=== PATIENT | female | born 1960 | race Caucasian/White ===

== ENCOUNTER 2019-10-14 10:00 | Emergency (ER) | payer MEDICARE, OTHER ==
[2019-10-14] MEDS ORDERED: Albuterol/Ipratropium 3.0-0.5 MG/3 ML Neb Soln NEB ONE (10:35)
--- NOTE | 2019-10-14 10:47 | EDM.PDOC ---
ED HPI GENERAL MEDICAL PROBLEM - General Chief Complaint: Respiratory Problem Stated Complaint: DIFFICULTY BREATHING Time Seen by Provider: 10/14/19 10:30 Source of Information: Reports: Patient, Old Records, RN History Limitations: Reports: No Limitations - History of Present Illness INITIAL COMMENTS - FREE TEXT/NARRATIVE: 59 yo female with progressive dyspnea over the past week was referred to the ER today by the clinic for this. Astrid does not believe that she has had a fever. Is a life long smoker. Is not aware of COPD/emphysema diagnosis. Does not have a nebulizer at home. No chest pain. Admits to nursing that she is taking neither her HCTZ or her thyroid medications having quit them on her own. Onset: Gradual Onset Date: 10/07/19 Duration: Week(s): (1), Getting Worse Location: Reports: Chest Quality: Reports: Other (no pain) Severity: Moderate Improves with: Reports: Rest Worsens with: Reports: Movement Context: Reports: Other (see HPI) Associated Symptoms: Reports: Shortness of Breath. 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) (none) denies Pain Score (Numeric/FACES): 0 - Related Data Allergies Allergy/AdvReac Type Severity Reaction Status Date / Time acetaminophen [From Tylenol] Allergy Liver Verified 10/14/19 10:17 Problems Home Meds: Home Meds Multivitamin with Minerals [Antioxidant Vitamin] 1 each PO DAILY 09/12/13 [ History] Vitamin B Complex [B Complex] 1 tab PO DAILY 09/12/13 [History] Levothyroxine 1 tab PO DAILY 08/31/15 [History] hydroCHLOROthiazide [Hydrochlorothiazide] 1 tab PO DAILY 08/31/15 [History] Albuterol [Proventil Neb Soln] 2.5 mg NEB Q4H PRN #60 neb 10/14/19 [Rx] Albuterol/Ipratropium [DuoNeb 3.0-0.5 MG/3 ML] 3 ml NEB Q6H PRN #60 neb [Rx] predniSONE [Prednisone] 20 mg PO BID #10 tablet 10/14/19 [Rx] Past Medical History HEENT History: Reports: Impaired Vision Cardiovascular History: Reports: Hypertension Gastrointestinal History: Reports: Cirrhosis 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: Musculoskeletal History: Reports: Fracture Other Musculoskeletal History: Fx ankle Endocrine/Metabolic History: Reports: Hypothyroidism Hematologic History: Reports: Blood Transfusion(s) - Infectious Disease History Infectious Disease History: Reports: Chicken Pox, Measles, Mumps - Past Surgical History HEENT Surgical History: Reports: Cataract Surgery Social & Family History - Tobacco Use Smoking Status *Q: Current Every Day Smoker Years of Tobacco use: 45 Packs/Tins Daily: 1 Used Tobacco, but Quit: No Second Hand Smoke Exposure: Yes - Caffeine Use Caffeine Use: Reports: Coffee, Soda - Alcohol Use Days Per Week of Alcohol Use: 7 Number of Drinks Per Day: 6 Total Drinks Per Week: 42 - Recreational Drug Use Recreational Drug Use: No ED ROS GENERAL - Review of Systems Review Of Systems: See Below Constitutional: Reports: No Symptoms HEENT: Reports: No Symptoms Respiratory: Reports: Shortness of Breath, Wheezing. Denies: Cough, Sputum, Hemoptysis Cardiovascular: Reports: No Symptoms GI/Abdominal: Reports: No Symptoms : Reports: No Symptoms Musculoskeletal: Reports: No Symptoms Skin: Reports: No Symptoms Neurological: Reports: No Symptoms ED EXAM, GENERAL - Physical Exam Exam: See Below Exam Limited By: No Limitations General Appearance: Alert, WD/WN, No Apparent Distress Eye Exam: Bilateral Eye: Normal Inspection Ears: Normal External Exam, Normal Canal, Hearing Grossly Normal, Normal TMs Ear Exam: Bilateral Ear: Auricle Normal, Canal Normal, TM normal Nose: Normal Inspection, No Blood Throat/Mouth: Normal Inspection, Normal Lips, Normal Oropharynx, Normal Voice, No Airway Compromise Head: Atraumatic, Normocephalic Neck: Normal Inspection Respiratory/Chest: Decreased Breath Sounds, Wheezing, Other (mild tachypnea). No: Lungs Clear, Normal Breath Sounds Cardiovascular: Regular Rate, Rhythm, No Edema GI/Abdominal: Normal Bowel Sounds, Soft, Non-Tender, No Distention Back Exam: Normal Inspection. No: CVA Tenderness (R), CVA Tenderness (L) Extremities: Normal Inspection, Normal Range of Motion, Non-Tender, No Pedal Edema Neurological: Alert, Oriented, CN II-XII Intact, Normal Cognition, No Motor/ Sensory Deficits Psychiatric: Normal Affect, Normal Mood Skin Exam: Warm, Dry, Intact, Normal Color, No Rash Course - Vital Signs Last Recorded V/S: Last Vital Signs Temp 37.0 C 10/14/19 10:29 Pulse 117 H 10/14/19 10:29 Resp 36 H 10/14/19 10:29 BP 175/91 H 10/14/19 10:29 Pulse Ox 91 L 10/14/19 10:29 - Orders/Labs/Meds Orders: Active Orders 24 hr Category Date Time Status RT Aerosol Therapy [RC] ASDIRECTED Care 10/14/19 10:35 Active Labs: Laboratory Tests 10/14/19 10/14/19 Range/Units 10:53 10:53 WBC 13.5 H (4.5-11.0) K/uL RBC 5.44 (3.30-5.50) M/uL Hgb 14.1 D (12.0-15.0) g/dL Hct 45.1 (36.0-48.0) % MCV 83 (80-98) fL MCH 26 L (27-31) pg MCHC 31 L (32-36) % Plt Count 380 (150-400) K/uL Sodium 135 L (140-148) mmol/L Potassium 4.1 (3.6-5.2) mmol/L Chloride 99 L (100-108) mmol/L Carbon Dioxide 26 (21-32) mmol/L Anion Gap 14.1 H (5.0-14.0) mmol/L BUN 5 L (7-18) mg/dL Creatinine 0.8 (0.6-1.0) mg/dL Est Cr Clr Drug Dosing 61.09 mL/min Estimated GFR (MDRD) > 60 (>60) Glucose 134 H (74-106) mg/dL Calcium 9.4 D (8.5-10.1) mg/dL Meds: Medications Discontinued Medications Generic Name Dose Route Start Last Admin Trade Name Freq PRN Reason Stop Dose Admin Albuterol/Ipratropium 3 ml 10/14/19 10:35 10/14/19 10:40 Duoneb 3.0-0.5 Mg/3 Ml NEB 10/14/19 10:36 3 ml ONETIME ONE Administration - Radiology Interpretation Free Text/Narrative:: CXR-minimal changes - Re-Assessments/Exams Free Text/Narrative Re-Assessment/Exam: 10/14/19 11:23 Is moving air a little better after the Duoneb, wants to try going home. Departure - Departure Time of Disposition: 11:35 Disposition: Home, Self-Care 01 Condition: Fair Clinical Impression: Chronic obstructive pulmonary disease with bronchospasm, Tobacco abuse - Discharge Information *PRESCRIPTION DRUG MONITORING PROGRAM REVIEWED*: Not Applicable *COPY OF PRESCRIPTION DRUG MONITORING REPORT IN PATIENT HUSAM: Not Applicable Instructions: Chronic Obstructive Pulmonary Disease Exacerbation, [id number] Referrals: Horacio Bourne MD [Primary Care Provider] - Forms: ED Department Discharge Additional Instructions: No smoking. Take prednisone, Duonebs, and albuterol as directed. Recheck with your provider, Dr. Bourne on Thursday. Call for an appt. Return to the ER if worse. Sepsis Event Note - Evaluation Sepsis Screening Result: No Definite Risk - Focused Exam Vital Signs: Vital Signs Temp Pulse Resp BP Pulse Ox 10/14/19 10:29 37.0 C 117 H 36 H 175/91 H 91 L 10/14/19 10:17 37.0 C 117 H 22 H 175/91 H 91 L Date Exam was Performed: 10/14/19 Time Exam was Performed: 11:22 - My Orders Last 24 Hours: My Active Orders 10/14/19 10:35 RT Aerosol Therapy [RC] ASDIRECTED - Assessment/Plan Last 24 Hours: My Active Orders 10/14/19 10:35 RT Aerosol Therapy [RC] ASDIRECTED
--- NOTE | 2019-10-14 11:22 | CR ---
CHEST: 2 view CLINICAL HISTORY:SOB COMPARISON:2014 FINDINGS: Heart is mildly enlarged. Pulmonary vascularity is normal. There are atherosclerotic changes in the aorta.. There is generalized prominence in interstitial markings which is felt to be chronic. There is some vague patchy density in the right lower lung field. This could represent a mild the right lower lung infiltrate either in the middle lobe or lower lobe. Impression: Chronic interstitial changes Mild cardiomegaly. Mild generalized increase in lung markings in the right lower lung field when compared to prior studies. Minimal pneumonic infiltrate is not excluded
[2019-10-14 11:50] VITALS: BP 165/89; PULSE 109
== END 2019-10-14 11:50 | disposition home or self-care (01) ==
LOC: JP.ED 10:00
DX: J98.01 Acute bronchospasm (principal); J44.9 Chronic obstructive pulmonary disease, unspecified; F17.210 Nicotine dependence, cigarettes, uncomplicated; I10 Essential (primary) hypertension; E03.9 Hypothyroidism, unspecified; Z79.899 Other long term (current) drug therapy
CPT/HCPCS: 36415; 71046; 71046-26; 80048; 85027; 94640; 99284; 99285-25; J7620-GY

== ENCOUNTER 2019-10-18 12:02 | Inpatient (IN) | payer MEDICARE, OTHER ==
--- NOTE | 2019-10-18 13:16 | EDM.PDOC ---
ED HPI GENERAL MEDICAL PROBLEM - General Chief Complaint: Respiratory Problem Stated Complaint: SHORTNESS OF BREATH Time Seen by Provider: 10/18/19 12:20 Source of Information: Reports: Patient History Limitations: Reports: No Limitations - History of Present Illness INITIAL COMMENTS - FREE TEXT/NARRATIVE: pt arrived with a cough, increased sob and a fever that she spiked this am. She was started on zithromax yesterday because she had a mild infiltrate on the chest obtained this weekend. Onset: Today, Other (pt was much more sob today and she ended up at [facility]. ) Duration: Hour(s): Location: Reports: Chest Associated Symptoms: Reports: Cough, Fever/Chills dENIES Pain Score (Numeric/FACES): 0 - Related Data Allergies Allergy/AdvReac Type Severity Reaction Status Date / Time acetaminophen [From Tylenol] Allergy Liver Verified 10/18/19 12:51 Problems Home Meds: Home Meds Multivitamin with Minerals [Antioxidant Vitamin] 1 each PO DAILY 09/12/13 [ History] Vitamin B Complex [B Complex] 1 tab PO DAILY 09/12/13 [History] Levothyroxine 1 tab PO DAILY 08/31/15 [History] hydroCHLOROthiazide [Hydrochlorothiazide] 1 tab PO DAILY 08/31/15 [History] Albuterol [Proventil Neb Soln] 2.5 mg NEB Q4H PRN #60 neb 10/14/19 [Rx] Albuterol/Ipratropium [DuoNeb 3.0-0.5 MG/3 ML] 3 ml NEB Q6H PRN #60 neb [Rx] predniSONE [Prednisone] 20 mg PO BID #10 tablet 10/14/19 [Rx] Azithromycin 1 tab PO DAILY 10/18/19 [History] Past Medical History HEENT History: Reports: Impaired Vision Cardiovascular History: Reports: Hypertension Gastrointestinal History: Reports: Cirrhosis 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: Musculoskeletal History: Reports: Fracture Other Musculoskeletal History: Fx ankle Endocrine/Metabolic History: Reports: Hypothyroidism Hematologic History: Reports: Blood Transfusion(s) - Infectious Disease History Infectious Disease History: Reports: Chicken Pox, Measles, Mumps - Past Surgical History HEENT Surgical History: Reports: Cataract Surgery Social & Family History - Caffeine Use Caffeine Use: Reports: Coffee, Soda ED ROS GENERAL - Review of Systems Review Of Systems: See Below Constitutional: Reports: Fever, Chills, Weakness HEENT: Reports: No Symptoms Respiratory: Reports: Shortness of Breath, Wheezing, Cough Cardiovascular: Reports: No Symptoms, Palpitations Endocrine: Reports: No Symptoms GI/Abdominal: Reports: No Symptoms : Reports: No Symptoms Musculoskeletal: Reports: No Symptoms Skin: Reports: No Symptoms Neurological: Reports: No Symptoms Psychiatric: Reports: Anxiety ED EXAM, GENERAL - Physical Exam Exam: See Below Free Text/Narrative:: pt arrived with a history of increased sob and cough. She did spike a temp this am. Exam Limited By: No Limitations General Appearance: Alert, Anxious, Moderate Distress Ears: Normal TMs Nose: Normal Inspection Throat/Mouth: Normal Inspection Head: Atraumatic Neck: Normal Inspection Respiratory/Chest: Decreased Breath Sounds, Wheezing, Prolonged Expiration Cardiovascular: Regular Rate, Rhythm, Tachycardia GI/Abdominal: Soft, Non-Tender (Female) Exam: Deferred Rectal (Female) Exam: Deferred Back Exam: Normal Inspection Extremities: Normal Inspection Course - Vital Signs Last Recorded V/S: Last Vital Signs Temp 35.8 C L 10/22/19 18:23 Pulse 89 10/22/19 18:23 Resp 20 10/22/19 18:23 BP 127/70 10/22/19 18:23 Pulse Ox 96 10/22/19 18:23 - Orders/Labs/Meds Orders: Medication Orders Acetylcysteine (Mucomyst 20%) 200 mg NEB BIDRT [facility] [place] Last Admin: 10/22/19 07:58 Dose: 200 mg Admin: 10/21/19 21:00 Dose: 200 mg Albuterol (Proventil Neb Soln) 2.5 mg NEB Q4H PRN PRN Reason: Wheezing Last Admin: 10/19/19 23:06 Dose: 2.5 mg Admin: 10/19/19 09:29 Dose: 2.5 mg Admin: 10/19/19 05:45 Dose: 2.5 mg Albuterol/Ipratropium (Duoneb 3.0-0.5 Mg/3 Ml) 3 ml NEB QIDRT [facility] [place] Last Admin: 10/22/19 15:23 Dose: 3 ml Admin: 10/22/19 13:16 Dose: 3 ml Admin: 10/22/19 07:58 Dose: 3 ml Admin: 10/21/19 20:55 Dose: 3 ml Admin: 10/21/19 15:03 Dose: 3 ml Admin: 10/21/19 11:05 Dose: 3 ml Admin: 10/21/19 07:20 Dose: 3 ml Admin: 10/20/19 21:08 Dose: 3 ml Admin: 10/20/19 14:28 Dose: 3 ml Admin: 10/20/19 10:58 Dose: 3 ml Admin: 10/20/19 07:16 Dose: 3 ml Admin: 10/19/19 20:11 Dose: 3 ml Admin: 10/19/19 14:39 Dose: 3 ml Admin: 10/19/19 10:40 Dose: 3 ml Admin: 10/19/19 07:28 Dose: 3 ml Admin: 10/18/19 21:18 Dose: 3 ml Benzocaine/Menthol (Cepacol Sore Throat) 1 lozenge MUCMEM ASDIRECTED PRN PRN Reason: Cough Benzonatate (Tessalon Perles) 200 mg PO TID PHILIPPE Last Admin: 10/22/19 13:23 Dose: 200 mg Admin: 10/22/19 08:01 Dose: 200 mg Admin: 10/21/19 20:55 Dose: 200 mg Admin: 10/21/19 13:12 Dose: 200 mg Admin: 10/21/19 08:08 Dose: 200 mg Admin: 10/20/19 21:08 Dose: 200 mg Admin: 10/20/19 14:35 Dose: 200 mg Admin: 10/20/19 10:21 Dose: 200 mg Admin: 10/19/19 20:11 Dose: 200 mg Admin: 10/19/19 13:48 Dose: 200 mg Guaifenesin/Codeine Phosphate (Robitussin Ac) 10 ml PO Q4H PRN PRN Reason: Cough Last Admin: 10/21/19 17:51 Dose: 10 ml Admin: 10/20/19 21:08 Dose: 10 ml Admin: 10/20/19 02:42 Dose: 10 ml Admin: 10/19/19 21:24 Dose: 10 ml Admin: 10/19/19 16:48 Dose: 10 ml Admin: 10/19/19 11:56 Dose: 10 ml Admin: 10/19/19 04:25 Dose: 10 ml Admin: 10/18/19 23:22 Dose: 10 ml Hydrochlorothiazide (Hydrochlorothiazide) 25 mg PO DAILY [facility] [place] Last Admin: 10/22/19 08:02 Dose: 25 mg Admin: 10/21/19 08:08 Dose: 25 mg Admin: 10/20/19 10:20 Dose: 25 mg Admin: 10/19/19 08:44 Dose: 25 mg Levofloxacin/Dextrose 750 mg/ (Premix) 150 mls @ 100 mls/hr IV Q24H [facility] [place] Last Admin: 10/22/19 13:21 Dose: 100 mls/hr Meropenem 1 gm/ Sodium (Chloride) 50 mls @ 100 mls/hr IV Q8H [facility] [place] Last Admin: 10/22/19 15:56 Dose: 100 mls/hr Lactobacillus Rhamnosus (Culturelle) 1 cap PO BID [facility] [place] Last Admin: 10/22/19 08:01 Dose: 1 cap Admin: 10/21/19 20:55 Dose: 1 cap Admin: 10/21/19 08:08 Dose: 1 cap Admin: 10/20/19 21:08 Dose: 1 cap Admin: 10/20/19 10:20 Dose: 1 cap Admin: 10/19/19 20:11 Dose: 1 cap Admin: 10/19/19 08:44 Dose: 1 cap Admin: 10/18/19 21:22 Dose: 1 cap Admin: 10/18/19 18:25 Dose: 1 cap Levothyroxine Sodium (Levothyroxine) 25 mcg PO ACBREAKFAST [facility] [place] Last Admin: 10/22/19 07:52 Dose: 25 mcg Admin: 10/21/19 08:08 Dose: 25 mcg Admin: 10/20/19 07:42 Dose: 25 mcg Admin: 10/19/19 07:45 Dose: 25 mcg Melatonin (Melatonin) 9 mg PO BEDTIME [facility] [place] Methylprednisolone Sodium Succinate (Solu-Medrol) 40 mg IVPUSH Q8H [facility] [place] Last Admin: 10/22/19 13:17 Dose: 40 mg Nicotine (Habitrol) 21 mg TRDERM DAILY [facility] [place] Last Admin: 10/22/19 08:01 Dose: 21 mg Admin: 10/21/19 08:07 Dose: 21 mg Admin: 10/20/19 10:20 Dose: 21 mg Admin: 10/19/19 08:45 Dose: 21 mg Admin: 10/18/19 18:25 Dose: 21 mg Nicotine Polacrilex (Nicorelief) 2 mg CHEW Q1H PRN PRN Reason: Other Ondansetron HCl (Zofran) 4 mg IV Q4H PRN PRN Reason: Nausea/Vomiting Oxycodone HCl (Oxycodone) 5 mg PO Q4H PRN PRN Reason: Pain (moderate 4-6) Polyethylene Glycol (Miralax) 17 gm PO DAILY PRN PRN Reason: Constipation Last Admin: 10/20/19 14:35 Dose: 17 gm Sodium Chloride (Saline Flush) 10 ml FLUSH ASDIRECTED PRN PRN Reason: Keep Vein Open Labs: Laboratory Tests 10/18/19 10/18/19 10/18/19 Range/Units 12:13 12:45 12:45 WBC 20.3 H (4.5-11.0) K/uL RBC 5.13 (3.30-5.50) M/uL Hgb 13.5 (12.0-15.0) g/dL Hct 42.2 (36.0-48.0) % MCV 82 (80-98) fL MCH 26 L (27-31) pg MCHC 32 (32-36) % Plt Count 358 (150-400) K/uL Neut % (Auto) 89 H (36-66) % Lymph % (Auto) 3 L (24-44) % [place] % (Auto) 8 H (2-6) % Eos % (Auto) 0 L (2-4) % Baso % (Auto) 0 (0-1) % Puncture Site ABG pH (7.350-7.450) ABG pCO2 (35.0-42.0) mmHg ABG pO2 (75.0-100.0) mmHg ABG HCO3 (22.0-26.0) mmol/L ABG Total CO2 (21.0-25.0) mmol/L ABG O2 Saturation (95.0-98.0) % ABG O2 Content (15.0-23.0) %vol ABG Base Excess mm/L ABG Hemoglobin (12.0-16.0) g/dL ABG Oxyhemoglobin % ABG Carboxyhemoglobin (0.0-1.6) % ABG Methemoglobin % Ray Test O2 Delivery Device Sodium 131 L (140-148) mmol/L Potassium 3.9 (3.6-5.2) mmol/L Chloride 94 L (100-108) mmol/L Carbon Dioxide 25 (21-32) mmol/L Anion Gap 15.9 H (5.0-14.0) mmol/L BUN 11 D (7-18) mg/dL Creatinine 0.8 (0.6-1.0) mg/dL Est Cr Clr Drug Dosing 58.41 mL/min Estimated GFR (MDRD) > 60 (>60) Glucose 128 H (74-106) mg/dL Calcium 9.8 (8.5-10.1) mg/dL Total Bilirubin 2.5 H (0.2-1.0) mg/dL AST 146 H D (15-37) U/L ALT 139 H (12-78) U/L Alkaline Phosphatase 236 H (46-116) U/L C-Reactive Protein (0.0-0.3) mg/dL Total Protein 8.3 H (6.4-8.2) g/dL Albumin 2.9 L (3.4-5.0) g/dL Globulin 5.4 H (2.3-3.5) g/dL Albumin/Globulin Ratio 0.5 L (1.2-2.2) TSH, Ultra Sensitive 2.746 (0.358-3.740) uIU/mL Urine Color (YELLOW) Urine Appearance (CLEAR) Urine pH (5.0-8.0) Ur Specific [place] (1.008-1.030) Urine Protein (NEGATIVE) mg/dL Urine Glucose (UA) (NEGATIVE) mg/dL Urine Ketones (NEGATIVE) mg/dL Urine Occult Blood (NEGATIVE) Urine Nitrite (NEGATIVE) Urine Bilirubin (NEGATIVE) Urine Urobilinogen (0.2-1.0) EU/dL Ur Leukocyte Esterase (NEGATIVE) Urine RBC (0-5) Urine WBC (0-5) Ur Epithelial Cells Amorphous Sediment Urine Bacteria Urine Mucus 10/18/19 10/18/19 10/18/19 Range/Units 12:45 14:01 15:25 WBC (4.5-11.0) K/uL RBC (3.30-5.50) M/uL Hgb (12.0-15.0) g/dL Hct (36.0-48.0) % MCV (80-98) fL MCH (27-31) pg MCHC (32-36) % Plt Count (150-400) K/uL Neut % (Auto) (36-66) % Lymph % (Auto) (24-44) % [place] % (Auto) (2-6) % Eos % (Auto) (2-4) % Baso % (Auto) (0-1) % Puncture Site Lt radial ABG pH 7.444 (7.350-7.450) ABG pCO2 34.6 L (35.0-42.0) mmHg ABG pO2 61.8 L (75.0-100.0) mmHg ABG HCO3 23.3 (22.0-26.0) mmol/L ABG Total CO2 20.8 L (21.0-25.0) mmol/L ABG O2 Saturation 91.6 L (95.0-98.0) % ABG O2 Content 15.8 (15.0-23.0) %vol ABG Base Excess 0.2 mm/L ABG Hemoglobin 12.5 (12.0-16.0) g/dL ABG Oxyhemoglobin 89.9 % ABG Carboxyhemoglobin 1.4 (0.0-1.6) % ABG Methemoglobin 0.5 % Ray Test Pass O2 Delivery Device Room air Sodium (140-148) mmol/L Potassium (3.6-5.2) mmol/L Chloride (100-108) mmol/L Carbon Dioxide (21-32) mmol/L Anion Gap (5.0-14.0) mmol/L BUN (7-18) mg/dL Creatinine (0.6-1.0) mg/dL Est Cr Clr Drug Dosing mL/min Estimated GFR (MDRD) (>60) Glucose (74-106) mg/dL Calcium (8.5-10.1) mg/dL Total Bilirubin (0.2-1.0) mg/dL AST (15-37) U/L ALT (12-78) U/L Alkaline Phosphatase (46-116) U/L C-Reactive Protein 31.55 H (0.0-0.3) mg/dL Total Protein (6.4-8.2) g/dL Albumin (3.4-5.0) g/dL Globulin (2.3-3.5) g/dL Albumin/Globulin Ratio (1.2-2.2) TSH, Ultra Sensitive (0.358-3.740) uIU/mL Urine Color [place] A (YELLOW) Urine Appearance Slightly cloudy A (CLEAR) Urine pH 6.0 (5.0-8.0) Ur Specific [place] 1.025 (1.008-1.030) Urine Protein 100 H (NEGATIVE) mg/dL Urine Glucose (UA) Negative (NEGATIVE) mg/dL Urine Ketones Trace H (NEGATIVE) mg/dL Urine Occult Blood Negative (NEGATIVE) Urine Nitrite Negative (NEGATIVE) Urine Bilirubin Moderate H (NEGATIVE) Urine Urobilinogen >=8.0 H (0.2-1.0) EU/dL Ur Leukocyte Esterase Negative (NEGATIVE) Urine RBC 0-5 (0-5) Urine WBC 0-5 (0-5) Ur Epithelial Cells Rare Amorphous Sediment Few Urine Bacteria Rare Urine Mucus Few Meds: Medications Generic Name Dose Route Start Last Admin Trade Name Freq PRN Reason Stop Dose Admin Acetylcysteine 200 mg 10/21/19 21:00 10/22/19 07:58 Mucomyst 20% NEB 200 mg BIDRT PHILIPPE Administration Albuterol 2.5 mg 10/18/19 16:52 10/19/19 23:06 Proventil Neb Soln NEB 2.5 mg Q4H PRN Administration Wheezing Albuterol/Ipratropium 3 ml 10/18/19 21:00 10/22/19 15:23 Duoneb 3.0-0.5 Mg/3 Ml NEB 3 ml QIDRT PHILIPPE Administration Benzocaine/Menthol 1 lozenge 10/18/19 21:04 Cepacol Sore Throat MUCMEM ASDIRECTED PRN Cough Benzonatate 200 mg 10/19/19 14:00 10/22/19 13:23 Tessalon Perles PO 200 mg TID PHILIPPE Administration Guaifenesin/Codeine Phosphate 10 ml 10/18/19 21:30 10/21/19 17:51 Robitussin Ac PO 10 ml Q4H PRN Administration Cough Hydrochlorothiazide 25 mg 10/19/19 09:00 10/22/19 08:02 Hydrochlorothiazide PO 25 mg DAILY PHILIPPE Administration Levofloxacin/Dextrose 750 mg/ 150 mls @ 100 mls/hr 10/22/19 12:00 10/22/19 13 :21 Premix IV 100 mls/hr Q24H PHILIPPE Administration Meropenem 1 gm/ Sodium 50 mls @ 100 mls/hr 10/22/19 14:00 10/22/19 15:56 Chloride IV 100 mls/hr Q8H PHILIPPE Administration Lactobacillus Rhamnosus 1 cap 10/18/19 17:30 10/22/19 08:01 Culturelle PO 1 cap BID PHILIPPE Administration Levothyroxine Sodium 25 mcg 10/19/19 07:30 10/22/19 07:52 Levothyroxine PO 25 mcg ACBREAKFAST PHILIPPE Administration Melatonin 9 mg 10/22/19 21:00 Melatonin PO BEDTIME PHILIPPE Methylprednisolone Sodium Succinate 40 mg 10/22/19 12:00 10/22/19 13:17 Solu-Medrol IVPUSH 40 mg Q8H PHILIPPE Administration Nicotine 21 mg 10/18/19 17:30 10/22/19 08:01 Habitrol TRDERM 21 mg DAILY PHILIPPE Administration Nicotine Polacrilex 2 mg 10/18/19 16:52 Nicorelief CHEW Q1H PRN Other Ondansetron HCl 4 mg 10/18/19 16:52 Zofran IV Q4H PRN Nausea/Vomiting Oxycodone HCl 5 mg 10/18/19 16:52 Oxycodone PO Q4H PRN Pain (moderate 4-6) Polyethylene Glycol 17 gm 10/18/19 16:52 10/20/19 14:35 Miralax PO 17 gm DAILY PRN Administration Constipation Sodium Chloride 10 ml 10/18/19 16:52 Saline Flush FLUSH ASDIRECTED PRN Keep Vein Open Discontinued Medications Generic Name Dose Route Start Last Admin Trade Name Freq PRN Reason Stop Dose Admin Albuterol 2.5 mg 10/18/19 13:20 10/18/19 14:02 Proventil Neb Soln NEB 10/18/19 13:21 2.5 mg ONETIME ONE Administration Sodium Chloride 1,000 mls @ 999 mls/hr 10/18/19 13:30 10/18/19 14:39 Normal Saline IV 999 mls/hr ASDIRECTED PHILIPPE Administration Sodium Chloride 100 mls @ 4 mls/sec 10/18/19 14:30 10/18/19 14:29 Normal Saline IV 10/18/19 14:31 4 mls/sec ASDIRECTED PHILIPPE Administration Ceftriaxone Sodium 1 gm/ 50 mls @ 100 mls/hr 10/18/19 16:30 10/21/19 15:54 Sodium Chloride IV 100 mls/hr Q24H PHILIPPE Administration Doxycycline Hyclate 100 mg/ 100 mls @ 100 mls/hr 10/18/19 18:00 10/22/19 06: 21 Sodium Chloride IV 100 mls/hr Q12H PHILIPPE Administration Sodium Chloride 1,000 mls @ 125 mls/hr 10/18/19 16:52 10/19/19 11:56 Normal Saline IV 125 mls/hr ASDIRECTED PHILIPPE Administration Sodium Chloride 1,000 mls @ 50 mls/hr 10/19/19 13:15 10/20/19 05:22 Normal Saline IV 50 mls/hr ASDIRECTED PHILIPPE Administration Potassium Chloride 20 meq/ 112 mls @ 56 mls/hr 10/20/19 10:00 10/20/19 12:44 Lidocaine HCl 2 ml/ Sodium IV 10/20/19 13:59 56 mls/hr Chloride Q2H PHILIPPE Administration Iopamidol 100 ml 10/18/19 14:30 10/18/19 14:28 Isovue-370 (76%) IV 10/18/19 14:31 100 ml . DIRECTED PHILIPPE Administration Potassium Chloride 40 meq 10/20/19 09:00 10/20/19 10:30 Klor-Con M20 PO 10/20/19 09:01 40 meq ONETIME ONE Administration Potassium Chloride 40 meq 10/20/19 13:00 10/20/19 12:45 Klor-Con M20 PO 10/20/19 13:01 40 meq ONETIME ONE Administration Potassium Chloride 40 meq 10/22/19 09:00 10/22/19 09:57 Klor-Con M20 PO 10/22/19 09:01 40 meq ONETIME ONE Administration Potassium Chloride 40 meq 10/22/19 17:00 10/22/19 16:01 Klor-Con M20 PO 10/22/19 17:01 40 meq ONETIME ONE Administration Sodium Chloride 10 ml 10/18/19 14:30 10/18/19 14:29 Saline Flush FLUSH 10 ml ONETIME PHILIPPE Administration - Re-Assessments/Exams Free Text/Narrative Re-Assessment/Exam: 10/18/19 14:23 pt has been on predisone but her wbc is 20,000. She is very sob and her sats are in the high 80s. A repeat chest xray was obtained which did show extension of the pneumonia. She does have prominet rt hilar area. 10/18/19 15:26 pt had a cat scan of the chest which showed a mass which is invading the hilum 10/22/19 18:54 Departure - Departure Time of Disposition: 18:25 Disposition: Admitted As Inpatient 64 Condition: Fair Clinical Impression: Malignant neoplasm of unspecified part of right bronchus or lung, Obstructive pneumonia, Dehydration - Discharge Information Sepsis Event Note - Focused Exam Date Exam was Performed: 10/22/19 Time Exam was Performed: 18:54
[2019-10-18] MEDS ORDERED: Albuterol 0.083% 2.5 MG/3 ML Neb Soln NEB ONE (13:20)
[2019-10-18] MEDS ORDERED: Sodium Chloride 0.9% 1,000 ML IV SCH (13:30)
--- NOTE | 2019-10-18 13:53 | CR ---
CHEST: 2 view CLINICAL HISTORY:Pneumonia COMPARISON:10/14/2019 FINDINGS: Right lower lobe airspace disease is increased since prior study. There is no large area of pneumonic infiltrate in the right upper lobe. There is fullness of the right hilum in addition to the infiltrate in the perihilar region. IMPRESSION: Persistent right lower lobe infiltrate with moderate infiltrate now in the right upper lobe. There is fullness of and ill-definition of the right hilar structures increased since prior study. Underlying hilar lesion is suspected. CT chest with contrast recommended.
[2019-10-18] MEDS ORDERED: Sodium Chloride 0.9% 10 ML Syringe FLUSH SCH (14:30)
[2019-10-18] MEDS ORDERED: Sodium Chloride 0.9% 100 ML IV SCH (14:30)
[2019-10-18] MEDS ORDERED: Iopamidol 755 Mg/ML 100 ML Bottle IV SCH (14:30)
--- NOTE | 2019-10-18 15:21 | CT ---
Ang Chest CLINICAL HISTORY: SOB TECHNIQUE: Thin section axial contiguous tomographic sections were taken through the chest after bolus IV iodinated contrast administration. Coronal and sagittal images were reconstructed. Auto dosage reduction and iterative reconstruction techniques employed. FINDINGS: There is a large area of consolidation in the right apex and upper lobe with maximum dimensions of the 4.9 x 5.6 x 5.0 cm. Much of this is due to postobstructive pneumonia. There are some satellite nodules peripherally in the right upper lobe these measure 1.4 x 9.4 anteriorly and 1.2 x 1.2 cm medially and 0.9 x 0.9 cm posterior laterally this could be neoplasm or infection. There is a 7 x 10 mm nodule anteriorly. There is a large right hilar and suprahilar mass. This measures 5.5 x 6.7 x 5.4 cm. This extends into the mediastinum. There is encroachment on and probable invasion of the superior vena cava. There is encasement and possible encroachment into of the right pulmonary artery. There is encasement and moderate encroachment into the lumen of the right mainstem bronchus and bronchus intermedius . There are atherosclerotic changes in the aorta. There is moderate tortuosity of the brachiocephalic vessels. No pulmonary emboli are identified. There is some patchy infiltrate in the right middle lobe. There is an area of groundglass opacification in the left lower lobe this may represent some pneumonitis or pneumonic infiltrate. IMPRESSION: Large right hilar mass invading the right mediastinum with encroachment and possible invasion involving the superior vena cava pulmonary artery and right mainstem bronchus and bronchus intermedius Increasing postobstructive pneumonia in the right upper lobe and apex Mild patchy infiltrate in the right middle lobe. Focal groundglass opacification in the left lower lobe measuring 4.2 x 2.2 cm. The this may be infectious or neoplastic.
--- NOTE | 2019-10-18 16:27 | PCM.HP.2 ---
H&P History of Present Illness - General Date of Service: 10/18/19 Admit Problem/Dx: Admission Diagnosis/Problem Admission Diagnosis/Problem Pneumonia Source of Information: Patient, Provider, RN Notes Reviewed History Limitations: Reports: No Limitations - History of Present Illness Initial Comments - Free Text/Narative: Ms. Pacheco is a 59-year-old woman who was admitted through the emergency department with cough, weakness, anorexia, and hypoxia, secondary to right lung pneumonia and associated right hilar mass. She reports that she has not felt well over the last 6 weeks with a nonproductive cough and progressive increase in shortness of breath. Symptoms have become significantly worse over the last week and a half. She was seen and evaluated in the emergency department over the weekend, discharged with [facility]. On review of chest x-ray there did appear to be a small infiltrate, she was contacted yesterday and started on oral antibiotic therapy with azithromycin. Symptoms worsened over the last 24 hours and so she presented to the emergency department today. Chest x-ray showed increased right lung infiltrate and question of right perihilar fullness. CT scan of the chest was obtained and shows evidence of a large mass in the hilar region, likely causing postobstructive pneumonia. She is lost approximately 30 pounds over the past several weeks and has become progressively more weak. White blood cell count is elevated although she has been treated with prednisone over the past several days. There is no evidence of underlying sepsis at the present time. dENIES Pain Score (Numeric/FACES): 0 - Related Data Allergies/Adverse Reactions: Allergies Allergy/AdvReac Type Severity Reaction Status Date / Time acetaminophen [From Tylenol] Allergy Liver Verified 10/18/19 12:51 Problems Home Medications: Home Meds Multivitamin with Minerals [Antioxidant Vitamin] 1 each PO DAILY 09/12/13 [ History] Vitamin B Complex [B Complex] 1 tab PO DAILY 09/12/13 [History] Levothyroxine 1 tab PO DAILY 08/31/15 [History] hydroCHLOROthiazide [Hydrochlorothiazide] 1 tab PO DAILY 08/31/15 [History] Albuterol [Proventil Neb Soln] 2.5 mg NEB Q4H PRN #60 neb 10/14/19 [Rx] Albuterol/Ipratropium [DuoNeb 3.0-0.5 MG/3 ML] 3 ml NEB Q6H PRN #60 neb [Rx] predniSONE [Prednisone] 20 mg PO BID #10 tablet 10/14/19 [Rx] Azithromycin 1 tab PO DAILY 10/18/19 [History] Past Medical History HEENT History: Reports: Impaired Vision Cardiovascular History: Reports: Hypertension Respiratory History: Reports: Other (See Below) Other Respiratory History: Recent cough and dyspnea Gastrointestinal History: Reports: Cirrhosis [employer] History: Reports: Musculoskeletal History: Reports: Fracture Other Musculoskeletal History: Fx ankle Endocrine/Metabolic History: Reports: Hypothyroidism Hematologic History: Reports: Blood Transfusion(s) - Infectious Disease History Infectious Disease History: Reports: Chicken Pox, Measles, Mumps - Past Surgical History HEENT Surgical History: Reports: Cataract Surgery Social & Family History - Tobacco Use Smoking Status *Q: Current Every Day Smoker Years of Tobacco use: 45 Packs/Tins Daily: 1 Used Tobacco, but Quit: No Second Hand Smoke Exposure: Yes - Caffeine Use Caffeine Use: Reports: Coffee, Soda - Recreational Drug Use Recreational Drug Use: No H&P Review of Systems - Review of Systems: Review Of Systems: See Below General: Reports: Weakness, Fatigue, Decreased Appetite, Weight Loss. Denies: Fever, Chills HEENT: Reports: No Symptoms Pulmonary: Reports: Shortness of Breath, Cough, Sputum. Denies: Wheezing, Pleuritic Chest Pain, Hemoptysis Cardiovascular: Reports: Dyspnea on Exertion. Denies: Chest Pain, Palpitations , Orthopnea, PND, Edema, Lightheadedness, Syncope Gastrointestinal: Reports: No Symptoms Genitourinary: Reports: No Symptoms Musculoskeletal: Reports: No Symptoms Skin: Reports: No Symptoms Psychiatric: Reports: No Symptoms Neurological: Reports: No Symptoms Hematologic/Lymphatic: Reports: No Symptoms Immunologic: Reports: No Symptoms Exam - Exam Exam: See Below - Vital Signs Vital Signs: Last Vital Signs Temp 96.1 F L 10/18/19 16:04 Pulse 98 10/18/19 16:04 Resp 18 10/18/19 16:04 BP 156/82 H 10/18/19 16:04 Pulse Ox 92 L 10/18/19 16:04 Weight: 199 lb - Exam Quality Assessment: Supplemental Oxygen, DVT Prophylaxis General: Alert, Oriented, Cooperative, Moderate Distress HEENT: Conjunctiva Clear, Hearing Intact, Mucosa Moist & [place], Normal Nasal Septum, Posterior Pharynx Clear, Pupils Equal Neck: Supple, Trachea Midline, +2 Carotid Pulse wo Bruit Lungs: Decreased Breath Sounds. No: Rales, Rhonchi, Wheezing Cardiovascular: Regular Rhythm, Normal S1, Normal S2, Tachycardia. No: Systolic Murmur, Diastolic Murmur GI/Abdominal Exam: Soft, Non-Tender, No Organomegaly, No Distention Back Exam: Normal Inspection, Full Range of Motion Extremities: Non-Tender, No Pedal Edema Skin: Warm, Dry, Intact Neurological: Cranial Nerves Intact, Strength Equal Bilateral, Normal Speech, Normal Tone, Sensation Intact. No: Focal Deficit Neuro Extensive - Mental Status: Alert, Oriented x3, Normal Mood/Affect, Normal Cognition, Memory Intact - Patient Data Lab Results Last 24 hrs: Laboratory Results - last 24 hr 10/18/19 10/18/19 10/18/19 Range/Units 12:13 12:45 12:45 WBC 20.3 H (4.5-11.0) K/uL RBC 5.13 (3.30-5.50) M/uL Hgb 13.5 (12.0-15.0) g/dL Hct 42.2 (36.0-48.0) % MCV 82 (80-98) fL MCH 26 L (27-31) pg MCHC 32 (32-36) % Plt Count 358 (150-400) K/uL Neut % (Auto) 89 H (36-66) % Lymph % (Auto) 3 L (24-44) % [place] % (Auto) 8 H (2-6) % Eos % (Auto) 0 L (2-4) % Baso % (Auto) 0 (0-1) % Puncture Site ABG pH (7.350-7.450) ABG pCO2 (35.0-42.0) mmHg ABG pO2 (75.0-100.0) mmHg ABG HCO3 (22.0-26.0) mmol/L ABG Total CO2 (21.0-25.0) mmol/L ABG O2 Saturation (95.0-98.0) % ABG O2 Content (15.0-23.0) %vol ABG Base Excess mm/L ABG Hemoglobin (12.0-16.0) g/dL ABG Oxyhemoglobin % ABG Carboxyhemoglobin (0.0-1.6) % ABG Methemoglobin % Ray Test O2 Delivery Device Sodium 131 L (140-148) mmol/L Potassium 3.9 (3.6-5.2) mmol/L Chloride 94 L (100-108) mmol/L Carbon Dioxide 25 (21-32) mmol/L Anion Gap 15.9 H (5.0-14.0) mmol/L BUN 11 D (7-18) mg/dL Creatinine 0.8 (0.6-1.0) mg/dL Est Cr Clr Drug Dosing 58.41 mL/min Estimated GFR (MDRD) > 60 (>60) Glucose 128 H (74-106) mg/dL Calcium 9.8 (8.5-10.1) mg/dL Total Bilirubin 2.5 H (0.2-1.0) mg/dL AST 146 H D (15-37) U/L ALT 139 H (12-78) U/L Alkaline Phosphatase 236 H (46-116) U/L C-Reactive Protein (0.0-0.3) mg/dL Total Protein 8.3 H (6.4-8.2) g/dL Albumin 2.9 L (3.4-5.0) g/dL Globulin 5.4 H (2.3-3.5) g/dL Albumin/Globulin Ratio 0.5 L (1.2-2.2) TSH, Ultra Sensitive 2.746 (0.358-3.740) uIU/mL Urine Color (YELLOW) Urine Appearance (CLEAR) Urine pH (5.0-8.0) Ur Specific [place] (1.008-1.030) Urine Protein (NEGATIVE) mg/dL Urine Glucose (UA) (NEGATIVE) mg/dL Urine Ketones (NEGATIVE) mg/dL Urine Occult Blood (NEGATIVE) Urine Nitrite (NEGATIVE) Urine Bilirubin (NEGATIVE) Urine Urobilinogen (0.2-1.0) EU/dL Ur Leukocyte Esterase (NEGATIVE) Urine RBC (0-5) Urine WBC (0-5) Ur Epithelial Cells Amorphous Sediment Urine Bacteria Urine Mucus 10/18/19 10/18/19 10/18/19 Range/Units 12:45 14:01 15:25 WBC (4.5-11.0) K/uL RBC (3.30-5.50) M/uL Hgb (12.0-15.0) g/dL Hct (36.0-48.0) % MCV (80-98) fL MCH (27-31) pg MCHC (32-36) % Plt Count (150-400) K/uL Neut % (Auto) (36-66) % Lymph % (Auto) (24-44) % [place] % (Auto) (2-6) % Eos % (Auto) (2-4) % Baso % (Auto) (0-1) % Puncture Site Lt radial ABG pH 7.444 (7.350-7.450) ABG pCO2 34.6 L (35.0-42.0) mmHg ABG pO2 61.8 L (75.0-100.0) mmHg ABG HCO3 23.3 (22.0-26.0) mmol/L ABG Total CO2 20.8 L (21.0-25.0) mmol/L ABG O2 Saturation 91.6 L (95.0-98.0) % ABG O2 Content 15.8 (15.0-23.0) %vol ABG Base Excess 0.2 mm/L ABG Hemoglobin 12.5 (12.0-16.0) g/dL ABG Oxyhemoglobin 89.9 % ABG Carboxyhemoglobin 1.4 (0.0-1.6) % ABG Methemoglobin 0.5 % Ray Test Pass O2 Delivery Device Room air Sodium (140-148) mmol/L Potassium (3.6-5.2) mmol/L Chloride (100-108) mmol/L Carbon Dioxide (21-32) mmol/L Anion Gap (5.0-14.0) mmol/L BUN (7-18) mg/dL Creatinine (0.6-1.0) mg/dL Est Cr Clr Drug Dosing mL/min Estimated GFR (MDRD) (>60) Glucose (74-106) mg/dL Calcium (8.5-10.1) mg/dL Total Bilirubin (0.2-1.0) mg/dL AST (15-37) U/L ALT (12-78) U/L Alkaline Phosphatase (46-116) U/L C-Reactive Protein 31.55 H (0.0-0.3) mg/dL Total Protein (6.4-8.2) g/dL Albumin (3.4-5.0) g/dL Globulin (2.3-3.5) g/dL Albumin/Globulin Ratio (1.2-2.2) TSH, Ultra Sensitive (0.358-3.740) uIU/mL Urine Color [place] A (YELLOW) Urine Appearance Slightly cloudy A (CLEAR) Urine pH 6.0 (5.0-8.0) Ur Specific [place] 1.025 (1.008-1.030) Urine Protein 100 H (NEGATIVE) mg/dL Urine Glucose (UA) Negative (NEGATIVE) mg/dL Urine Ketones Trace H (NEGATIVE) mg/dL Urine Occult Blood Negative (NEGATIVE) Urine Nitrite Negative (NEGATIVE) Urine Bilirubin Moderate H (NEGATIVE) Urine Urobilinogen >=8.0 H (0.2-1.0) EU/dL Ur Leukocyte Esterase Negative (NEGATIVE) Urine RBC 0-5 (0-5) Urine WBC 0-5 (0-5) Ur Epithelial Cells Rare Amorphous Sediment Few Urine Bacteria Rare Urine Mucus Few Result Diagrams: 10/18/19 12:45 10/18/19 12:45 Sepsis Event Note - Evaluation Sepsis Screening Result: Possible Sepsis Risk - Focused Exam Vital Signs: Vital Signs Temp Pulse Resp BP Pulse Ox 10/18/19 16:04 96.1 F L 98 18 156/82 H 92 L 10/18/19 15:05 98.5 F 102 H 16 147/78 H 94 L 10/18/19 14:53 103 H 15 137/73 90 L 10/18/19 14:04 98.5 F 110 H 36 H 131/90 88 L 10/18/19 12:51 98.5 F 110 H 36 H 131/90 88 L Date Exam was Performed: 10/18/19 Time Exam was Performed: 16:38 *Q Meaningful Use (ADM) - VTE Risk Assess *Q Each Risk Factor Represents 1 Point: Obesity ( BMI > 25 kg/m2), Serious lung disease including pneumonia, Abnormal Pulmonary Function (COPD) Total Score 1 Point Risk Factors: 3 Each Risk Factor Represents 2 Points: Age 60 - 74 Years, Malignancy (present or previous) Total Score 2 Point Risk Factors: 4 Each Risk Factor Represents 3 Points: None Total Score 3 Point Risk Factors: 0 Each Risk Factor Represents 5 Points: None Total Score 5 Point Risk Factors: 0 Venous Thromboembolism Risk Factor Score *Q: 7 Problem List Initiated/Reviewed/Updated: Yes Orders Last 24hrs: Active Orders 24 hr Category Date Time Status Patient Status Manage Transfer [TRANSFER] Routine ADT 10/18/19 16:05 Active RT Aerosol Therapy [RC] ASDIRECTED Care 10/18/19 13:20 Active CULTURE BLOOD [BC] Stat Lab 10/18/19 15:15 Received CULTURE BLOOD [BC] Stat Lab 10/18/19 16:15 Ordered CULTURE RESPIRATORY + SMEAR [RM] Stat Lab 10/18/19 16:16 Ordered Doxycycline [Vibramycin] 100 mg Med 10/18/19 16:30 Ordered Sodium Chloride 0.9% [Normal Saline] 100 ml IV Q12HR Sodium Chloride 0.9% [Normal Saline] 1,000 ml Med 10/18/19 13:30 Active IV ASDIRECTED Sodium Chloride 0.9% [Saline Flush] Med 10/18/19 14:30 Active 10 ml FLUSH ONETIME cefTRIAXone [Rocephin] 1 gm Med 10/18/19 16:30 Ordered Sodium Chloride 0.9% [Normal Saline] 50 ml IV Q24H Blood Culture x2 Reflex Set [OM.PC] Urgent Oth 10/18/19 16:15 Ordered Resuscitation Status Routine Resus Stat 10/18/19 16:07 Ordered Medication Orders Sodium Chloride (Normal Saline) 1,000 mls @ 999 mls/hr IV ASDIRECTED [facility] Last Admin: 10/18/19 14:39 Dose: 999 mls/hr Ceftriaxone Sodium 1 gm/ (Sodium Chloride) 50 mls @ 100 mls/hr IV Q24H [facility] Doxycycline Hyclate 100 mg/ (Sodium Chloride) 100 mls @ 100 mls/hr IV Q12HR [facility] Sodium Chloride (Saline Flush) 10 ml FLUSH ONETIME [facility] Last Admin: 10/18/19 14:29 Dose: 10 ml Assessment/Plan Comment:: ASSESSMENT AND PLAN POSTOBSTRUCTIVE PNEUMONIA RIGHT LUNG-right lung infiltrates as well as right hilar mass identified on CT scan. -Blood and sputum cultures pending -IV ceftriaxone and doxycycline pending culture results RIGHT HILAR MASS-probable underlying malignancy -Consult Dr. Winston for bronchoscopy after pneumonia has been adequately treated HYPOXIC RESPIRATORY FAILURE-underlying COPD, compromised by current pneumonia and right hilar mass -Supplemental oxygen as needed -Nebulized albuterol and DuoNebs HEPATIC CIRRHOSIS-previous history of long-term alcohol abuse, has not consumed alcohol over the past 6 years. -Monitor liver tests while hospitalized MAINTENANCE ISSUES -DVT prophylaxis; SCUDs, hold on anticoagulation because of possible bronchoscopy -GI prophylaxis; not indicated -Mendez catheter; not indicated -Nutrition; regular diet -Nicotine dependence; nicotine patch and gum as needed CODE STATUS-FULL CODE ADMISSION STATUS-patient will be admitted to inpatient status, expect at least a 2 night hospital stay for evaluation and management of problems as outlined above. At the time of this admission I do not reasonably expected evaluation and management of this problem will require more than a 96 hour hospital stay. DISPOSITION-anticipate discharge to home after the hospital stay. PRIMARY CARE PROVIDER-Dr. Aponte - Mortality Measure Prognosis:: Good
[2019-10-18] MEDS ORDERED: oxyCODONE 5 MG Tab PO PRN (16:52)
[2019-10-18] MEDS ORDERED: Ondansetron 4 MG/2 ML SDV IV PRN (16:52)
[2019-10-18] MEDS ORDERED: Sodium Chloride 0.9% 10 ML Syringe FLUSH PRN (16:52)
[2019-10-18] MEDS ORDERED: Nicotine Polacrilex 2 MG Gum CHEW PRN (16:52)
[2019-10-18] MEDS: cefTRIAXone 1 GM in Sodium Chloride 0.9% 50 ML IV SCH (16:59)
[2019-10-18] MEDS: Doxycycline 100 MG in Sodium Chloride 0.9% 100 ML IV SCH (18:01)
[2019-10-18] MEDS: Nicotine 21 MG/24 Hr Patch TRDERM SCH (18:25)
[2019-10-18] MEDS: Lactobacillus Rhamnosus GG (Probiotic) Cap PO SCH ×2 (18:25→21:22)
[2019-10-18] MEDS ORDERED: Benzocaine/Cetylpyridinium/Menthol Lozenge MUCMEM PRN (21:04)
[2019-10-18] MEDS: Albuterol/Ipratropium 3.0-0.5 MG/3 ML Neb Soln NEB SCH (21:18)
[2019-10-18] MEDS: Codeine/guaiFENesin 100mg-10 MG/5 ML Syrup 10 ML Cup PO PRN (23:22)
[2019-10-19] MEDS: Sodium Chloride 0.9% 1,000 ML IV SCH ×2 (02:54→11:56)
[2019-10-19] MEDS: Codeine/guaiFENesin 100mg-10 MG/5 ML Syrup 10 ML Cup PO PRN ×4 (04:25→21:24)
[2019-10-19] MEDS: Doxycycline 100 MG in Sodium Chloride 0.9% 100 ML IV SCH ×2 (05:11→17:26)
[2019-10-19] MEDS: Albuterol 0.083% 2.5 MG/3 ML Neb Soln NEB PRN ×3 (05:45→23:06)
[2019-10-19] MEDS: Albuterol/Ipratropium 3.0-0.5 MG/3 ML Neb Soln NEB SCH ×4 (07:28→20:11)
[2019-10-19] MEDS: Levothyroxine 25 MCG Tab PO SCH (07:45)
[2019-10-19] MEDS: Lactobacillus Rhamnosus GG (Probiotic) Cap PO SCH ×2 (08:44→20:11)
[2019-10-19] MEDS: Hydrochlorothiazide 25 MG Tab PO SCH (08:44)
[2019-10-19] MEDS: Nicotine 21 MG/24 Hr Patch TRDERM SCH (08:45)
[2019-10-19] MEDS ORDERED: Sodium Chloride 0.9% 1,000 ML IV SCH (13:15)
--- NOTE | 2019-10-19 13:19 | PCM.PN ---
- General Info Date of Service: 10/19/19 Subjective Update: Ms. Pacheco remains short of breath and continues to require supplemental oxygen. White blood cell count is improved and she has not had significant temperature elevation since admission. She feels very fatigued and has been unable to sleep for some time because of her dry cough. Functional Status: Reports: Urinating - Review of Systems General: Reports: Weakness. Denies: Fever, Chills Pulmonary: Reports: Shortness of Breath, Cough. Denies: Sputum, Hemoptysis, Wheezing Cardiovascular: Reports: Dyspnea on Exertion. Denies: Chest Pain, Palpitations , Orthopnea, PND, Edema, Lightheadedness Gastrointestinal: Reports: No Symptoms - Patient Data Vitals - Most Recent: Last Vital Signs Temp 97.6 F 10/19/19 10:28 Pulse 98 10/19/19 10:40 Resp 16 10/19/19 10:28 BP 129/75 10/19/19 10:28 Pulse Ox 96 10/19/19 12:05 Weight - Most Recent: 211 lb I&O - Last 24 Hours: Intake & Output 10/18/19 10/19/19 10/19/19 22:59 06:59 14:59 Intake Total 340 2278 Output Total 500 200 100 Balance -160 2078 -100 Lab Results Last 24 Hours: Laboratory Results - last 24 hr 10/18/19 10/18/19 10/18/19 Range/Units 12:13 12:45 12:45 WBC (4.5-11.0) K/uL RBC (3.30-5.50) M/uL Hgb (12.0-15.0) g/dL Hct (36.0-48.0) % MCV (80-98) fL MCH (27-31) pg MCHC (32-36) % Plt Count (150-400) K/uL Neut % (Auto) (36-66) % Lymph % (Auto) (24-44) % [place] % (Auto) (2-6) % Eos % (Auto) (2-4) % Baso % (Auto) (0-1) % PT (9.5-12.0) sec INR (0.80-1.20) Puncture Site ABG pH (7.350-7.450) ABG pCO2 (35.0-42.0) mmHg ABG pO2 (75.0-100.0) mmHg ABG HCO3 (22.0-26.0) mmol/L ABG Total CO2 (21.0-25.0) mmol/L ABG O2 Saturation (95.0-98.0) % ABG O2 Content (15.0-23.0) %vol ABG Base Excess mm/L ABG Hemoglobin (12.0-16.0) g/dL ABG Oxyhemoglobin % ABG Carboxyhemoglobin (0.0-1.6) % ABG Methemoglobin % Ray Test O2 Delivery Device Sodium 131 L (140-148) mmol/L Potassium 3.9 (3.6-5.2) mmol/L Chloride 94 L (100-108) mmol/L Carbon Dioxide 25 (21-32) mmol/L Anion Gap 15.9 H (5.0-14.0) mmol/L BUN 11 D (7-18) mg/dL Creatinine 0.8 (0.6-1.0) mg/dL Est Cr Clr Drug Dosing 58.41 mL/min Estimated GFR (MDRD) > 60 (>60) Glucose 128 H (74-106) mg/dL Calcium 9.8 (8.5-10.1) mg/dL Magnesium (1.8-2.4) mg/dL Total Bilirubin 2.5 H (0.2-1.0) mg/dL AST 146 H D (15-37) U/L ALT 139 H (12-78) U/L Alkaline Phosphatase 236 H (46-116) U/L C-Reactive Protein 31.55 H (0.0-0.3) mg/dL Total Protein 8.3 H (6.4-8.2) g/dL Albumin 2.9 L (3.4-5.0) g/dL Globulin 5.4 H (2.3-3.5) g/dL Albumin/Globulin Ratio 0.5 L (1.2-2.2) TSH, Ultra Sensitive 2.746 (0.358-3.740) uIU/mL Urine Color (YELLOW) Urine Appearance (CLEAR) Urine pH (5.0-8.0) Ur Specific [place] (1.008-1.030) Urine Protein (NEGATIVE) mg/dL Urine Glucose (UA) (NEGATIVE) mg/dL Urine Ketones (NEGATIVE) mg/dL Urine Occult Blood (NEGATIVE) Urine Nitrite (NEGATIVE) Urine Bilirubin (NEGATIVE) Urine Urobilinogen (0.2-1.0) EU/dL Ur Leukocyte Esterase (NEGATIVE) Urine RBC (0-5) Urine WBC (0-5) Ur Epithelial Cells Amorphous Sediment Urine Bacteria Urine Mucus 10/18/19 10/18/19 10/19/19 Range/Units 14:01 15:25 06:01 WBC 14.1 H (4.5-11.0) K/uL RBC 4.66 (3.30-5.50) M/uL Hgb 12.3 (12.0-15.0) g/dL Hct 39.2 (36.0-48.0) % MCV 84 (80-98) fL MCH 26 L (27-31) pg MCHC 31 L (32-36) % Plt Count 286 (150-400) K/uL Neut % (Auto) 89 H (36-66) % Lymph % (Auto) 5 L (24-44) % [place] % (Auto) 7 H (2-6) % Eos % (Auto) 0 L (2-4) % Baso % (Auto) 0 (0-1) % PT (9.5-12.0) sec INR (0.80-1.20) Puncture Site Lt radial ABG pH 7.444 (7.350-7.450) ABG pCO2 34.6 L (35.0-42.0) mmHg ABG pO2 61.8 L (75.0-100.0) mmHg ABG HCO3 23.3 (22.0-26.0) mmol/L ABG Total CO2 20.8 L (21.0-25.0) mmol/L ABG O2 Saturation 91.6 L (95.0-98.0) % ABG O2 Content 15.8 (15.0-23.0) %vol ABG Base Excess 0.2 mm/L ABG Hemoglobin 12.5 (12.0-16.0) g/dL ABG Oxyhemoglobin 89.9 % ABG Carboxyhemoglobin 1.4 (0.0-1.6) % ABG Methemoglobin 0.5 % Ray Test Pass O2 Delivery Device Room air Sodium (140-148) mmol/L Potassium (3.6-5.2) mmol/L Chloride (100-108) mmol/L Carbon Dioxide (21-32) mmol/L Anion Gap (5.0-14.0) mmol/L BUN (7-18) mg/dL Creatinine (0.6-1.0) mg/dL Est Cr Clr Drug Dosing mL/min Estimated GFR (MDRD) (>60) Glucose (74-106) mg/dL Calcium (8.5-10.1) mg/dL Magnesium (1.8-2.4) mg/dL Total Bilirubin (0.2-1.0) mg/dL AST (15-37) U/L ALT (12-78) U/L Alkaline Phosphatase (46-116) U/L C-Reactive Protein (0.0-0.3) mg/dL Total Protein (6.4-8.2) g/dL Albumin (3.4-5.0) g/dL Globulin (2.3-3.5) g/dL Albumin/Globulin Ratio (1.2-2.2) TSH, Ultra Sensitive (0.358-3.740) uIU/mL Urine Color [place] A (YELLOW) Urine Appearance Slightly cloudy A (CLEAR) Urine pH 6.0 (5.0-8.0) Ur Specific [place] 1.025 (1.008-1.030) Urine Protein 100 H (NEGATIVE) mg/dL Urine Glucose (UA) Negative (NEGATIVE) mg/dL Urine Ketones Trace H (NEGATIVE) mg/dL Urine Occult Blood Negative (NEGATIVE) Urine Nitrite Negative (NEGATIVE) Urine Bilirubin Moderate H (NEGATIVE) Urine Urobilinogen >=8.0 H (0.2-1.0) EU/dL Ur Leukocyte Esterase Negative (NEGATIVE) Urine RBC 0-5 (0-5) Urine WBC 0-5 (0-5) Ur Epithelial Cells Rare Amorphous Sediment Few Urine Bacteria Rare Urine Mucus Few 10/19/19 10/19/19 Range/Units 06:01 06:01 WBC (4.5-11.0) K/uL RBC (3.30-5.50) M/uL Hgb (12.0-15.0) g/dL Hct (36.0-48.0) % MCV (80-98) fL MCH (27-31) pg MCHC (32-36) % Plt Count (150-400) K/uL Neut % (Auto) (36-66) % Lymph % (Auto) (24-44) % [place] % (Auto) (2-6) % Eos % (Auto) (2-4) % Baso % (Auto) (0-1) % PT 12.1 H (9.5-12.0) sec INR 1.13 (0.80-1.20) Puncture Site ABG pH (7.350-7.450) ABG pCO2 (35.0-42.0) mmHg ABG pO2 (75.0-100.0) mmHg ABG HCO3 (22.0-26.0) mmol/L ABG Total CO2 (21.0-25.0) mmol/L ABG O2 Saturation (95.0-98.0) % ABG O2 Content (15.0-23.0) %vol ABG Base Excess mm/L ABG Hemoglobin (12.0-16.0) g/dL ABG Oxyhemoglobin % ABG Carboxyhemoglobin (0.0-1.6) % ABG Methemoglobin % Ray Test O2 Delivery Device Sodium 134 L (140-148) mmol/L Potassium 4.1 (3.6-5.2) mmol/L Chloride 98 L (100-108) mmol/L Carbon Dioxide 27 (21-32) mmol/L Anion Gap 13.1 (5.0-14.0) mmol/L BUN 9 (7-18) mg/dL Creatinine 0.7 (0.6-1.0) mg/dL Est Cr Clr Drug Dosing 66.75 mL/min Estimated GFR (MDRD) > 60 (>60) Glucose 96 (74-106) mg/dL Calcium 8.7 (8.5-10.1) mg/dL Magnesium 1.8 (1.8-2.4) mg/dL Total Bilirubin 2.3 H (0.2-1.0) mg/dL AST 117 H (15-37) U/L ALT 136 H (12-78) U/L Alkaline Phosphatase 208 H (46-116) U/L C-Reactive Protein (0.0-0.3) mg/dL Total Protein 7.1 (6.4-8.2) g/dL Albumin 2.3 L (3.4-5.0) g/dL Globulin 4.8 H (2.3-3.5) g/dL Albumin/Globulin Ratio 0.5 L (1.2-2.2) TSH, Ultra Sensitive (0.358-3.740) uIU/mL Urine Color (YELLOW) Urine Appearance (CLEAR) Urine pH (5.0-8.0) Ur Specific [place] (1.008-1.030) Urine Protein (NEGATIVE) mg/dL Urine Glucose (UA) (NEGATIVE) mg/dL Urine Ketones (NEGATIVE) mg/dL Urine Occult Blood (NEGATIVE) Urine Nitrite (NEGATIVE) Urine Bilirubin (NEGATIVE) Urine Urobilinogen (0.2-1.0) EU/dL Ur Leukocyte Esterase (NEGATIVE) Urine RBC (0-5) Urine WBC (0-5) Ur Epithelial Cells Amorphous Sediment Urine Bacteria Urine Mucus [place] Results Last 24 Hours: Microbiology 10/18/19 23:18 Gram Stain - Final Sputum - Expectorated Med Orders - Current: Current Medications Albuterol (Proventil Neb Soln) 2.5 mg NEB Q4H PRN PRN Reason: Wheezing Last Admin: 10/19/19 09:29 Dose: 2.5 mg Albuterol/Ipratropium (Duoneb 3.0-0.5 Mg/3 Ml) 3 ml NEB QIDRT [facility] Last Admin: 10/19/19 10:40 Dose: 3 ml Benzocaine/Menthol (Cepacol Sore Throat) 1 lozenge MUCMEM ASDIRECTED PRN PRN Reason: Cough Benzonatate (Tessalon Perles) 200 mg PO TID [facility] Guaifenesin/Codeine Phosphate (Robitussin Ac) 10 ml PO Q4H PRN PRN Reason: Cough Last Admin: 10/19/19 11:56 Dose: 10 ml Hydrochlorothiazide (Hydrochlorothiazide) 25 mg PO DAILY [facility] Last Admin: 10/19/19 08:44 Dose: 25 mg Ceftriaxone Sodium 1 gm/ (Sodium Chloride) 50 mls @ 100 mls/hr IV Q24H [facility] Last Admin: 10/18/19 16:59 Dose: 100 mls/hr Doxycycline Hyclate 100 mg/ (Sodium Chloride) 100 mls @ 100 mls/hr IV Q12H [facility] Last Admin: 10/19/19 05:11 Dose: 100 mls/hr Sodium Chloride (Normal Saline) 1,000 mls @ 50 mls/hr IV ASDIRECTED [facility] Lactobacillus Rhamnosus (Culturelle) 1 cap PO BID [facility] Last Admin: 10/19/19 08:44 Dose: 1 cap Levothyroxine Sodium (Levothyroxine) 25 mcg PO ACBREAKFAST [facility] Last Admin: 10/19/19 07:45 Dose: 25 mcg Nicotine (Habitrol) 21 mg TRDERM DAILY [facility] Last Admin: 10/19/19 08:45 Dose: 21 mg Nicotine Polacrilex (Nicorelief) 2 mg CHEW Q1H PRN PRN Reason: Other Ondansetron HCl (Zofran) 4 mg IV Q4H PRN PRN Reason: Nausea/Vomiting Oxycodone HCl (Oxycodone) 5 mg PO Q4H PRN PRN Reason: Pain (moderate 4-6) Polyethylene Glycol (Miralax) 17 gm PO DAILY PRN PRN Reason: Constipation Sodium Chloride (Saline Flush) 10 ml FLUSH ASDIRECTED PRN PRN Reason: Keep Vein Open Discontinued Medications Albuterol (Proventil Neb Soln) 2.5 mg NEB ONETIME ONE Stop: 10/18/19 13:21 Last Admin: 10/18/19 14:02 Dose: 2.5 mg Sodium Chloride (Normal Saline) 1,000 mls @ 999 mls/hr IV ASDIRECTED [facility] Last Admin: 10/18/19 14:39 Dose: 999 mls/hr Sodium Chloride (Normal Saline) 100 mls @ 4 mls/sec IV ASDIRECTED [facility] Stop: 10/18/19 14:31 Last Admin: 10/18/19 14:29 Dose: 4 mls/sec Sodium Chloride (Normal Saline) 1,000 mls @ 125 mls/hr IV ASDIRECTED [facility] Last Admin: 10/19/19 11:56 Dose: 125 mls/hr Iopamidol (Isovue-370 (76%)) 100 ml IV . DIRECTED [facility] Stop: 10/18/19 14:31 Last Admin: 10/18/19 14:28 Dose: 100 ml Sodium Chloride (Saline Flush) 10 ml FLUSH ONETIME [facility] Last Admin: 10/18/19 14:29 Dose: 10 ml - Exam Quality Assessment: Supplemental Oxygen, DVT Prophylaxis General: Alert, Oriented, Cooperative, Moderate Distress Lungs: Clear to Auscultation, Normal Respiratory Effort, Decreased Breath Sounds. No: Rales, Rhonchi, Wheezing Cardiovascular: Regular Rhythm, No Murmurs, Tachycardia GI/Abdominal Exam: Soft, Non-Tender, No Organomegaly, No Distention Extremities: Non-Tender, No Pedal Edema Sepsis Event Note - Evaluation Sepsis Screening Result: Severe Sepsis Risk - Focused Exam Vital Signs: Vital Signs Temp Pulse Pulse Resp BP Pulse Ox Pulse Ox 10/19/19 12:05 96 10/19/19 10:40 98 88 L 10/19/19 10:28 97.6 F 101 H 16 129/75 93 L 10/19/19 07:30 106 H 93 L 10/19/19 07:14 91 L 10/19/19 06:56 98.5 F 112 H 16 129/64 92 L 10/19/19 05:50 44 H 91 L 10/19/19 05:49 44 H 74 L 10/19/19 02:57 100.1 F 99 22 H 124/73 92 L Date Exam was Performed: 10/19/19 Time Exam was Performed: 13:16 - Problem List Review Problem List Initiated/Reviewed/Updated: Yes - My Orders Last 24 Hours: My Active Orders 10/18/19 15:15 CULTURE BLOOD [BC] Stat 10/18/19 16:07 Resuscitation Status Routine 10/18/19 16:15 Blood Culture x2 Reflex Set [OM.PC] Urgent 10/18/19 16:25 CULTURE BLOOD [BC] Stat 10/18/19 16:30 cefTRIAXone [Rocephin] 1 gm Sodium Chloride 0.9% [Normal Saline] 50 ml IV Q24H 10/18/19 16:52 Patient Status [ADT] Routine Ambulate [RC] QID Height and Weight [RC] 0500 Intake and Output [RC] QSHIFT Notify Provider Consults [RC] ASDIRECTED Notify Provider Vital Signs [RC] ASDIRECTED Oxygen Therapy [RC] PRN Peripheral IV Care [RC] Q12H Pulse Oximetry [RC] CONTINUOUS Up ad Meli [RC] ASDIRECTED Up to Chair [RC] QID VTE/DVT Education [RC] Per Unit Routine Vital Signs [RC] Q4H Consult to Physician [CONS] Routine Albuterol [Proventil Neb Soln] 2.5 mg NEB Q4H PRN Nicotine Polacrilex [Nicorelief] 2 mg CHEW Q1H PRN Ondansetron [Zofran] 4 mg IV Q4H PRN Sodium Chloride 0.9% [Saline Flush] 10 ml FLUSH ASDIRECTED PRN oxyCODONE 5 mg PO Q4H PRN polyethylene glycoL 3350 [MiraLAX] 17 gm PO DAILY PRN Peripheral IV Insertion Adult [OM.PC] Routine Sequential Compression Device [OM.PC] Per Unit Routine VTE Pharmacological Contraindications [AST] Per Unit Routine 10/18/19 17:30 Lactobacillus Rhamnosus GG [Culturelle] 1 cap PO BID Nicotine [Habitrol] 21 mg TRDERM DAILY 10/18/19 18:00 Doxycycline [Vibramycin] 100 mg Sodium Chloride 0.9% [Normal Saline] 100 ml IV Q12H 10/18/19 21:00 Albuterol/Ipratropium [DuoNeb 3.0-0.5 MG/3 ML] 3 ml NEB QIDRT 10/18/19 21:38 RT Aerosol Therapy [RC] ASDIRECTED 10/18/19 23:18 CULTURE RESPIRATORY + SMEAR [RM] Stat 10/19/19 07:30 Levothyroxine 25 mcg PO ACBREAKFAST 10/19/19 09:00 hydroCHLOROthiazide 25 mg PO DAILY 10/19/19 13:15 Sodium Chloride 0.9% @ 50 MLS/HR(1000ml) Sodium Chloride 0.9% [Normal Saline] 1 ,000 ml IV ASDIRECTED 10/19/19 14:00 Benzonatate [Tessalon Perles] 200 mg PO TID 10/20/19 05:00 BASIC METABOLIC PANEL,BMP [CHEM] Timed CBC WITH AUTO DIFF [HEME] Timed - Plan Plan:: ASSESSMENT AND PLAN POSTOBSTRUCTIVE PNEUMONIA RIGHT LUNG-right lung infiltrates as well as right hilar mass identified on CT scan. -Blood and sputum cultures pending -IV ceftriaxone and doxycycline pending culture results -Tessalon Perles 3 times daily -Robitussin AC as needed RIGHT HILAR MASS-probable underlying malignancy -Consult Dr. Winston for bronchoscopy after pneumonia has been adequately treated HYPOXIC RESPIRATORY FAILURE-underlying COPD, compromised by current pneumonia and right hilar mass -Supplemental oxygen as needed -Nebulized albuterol and DuoNebs HEPATIC CIRRHOSIS-previous history of long-term alcohol abuse, has not consumed alcohol over the past 6 years. MAINTENANCE ISSUES -DVT prophylaxis; SCUDs, hold on anticoagulation because of possible bronchoscopy -GI prophylaxis; not indicated -Mendez catheter; not indicated -Nutrition; regular diet -Nicotine dependence; nicotine patch and gum as needed CODE STATUS-FULL CODE ADMISSION STATUS-patient will be admitted to inpatient status, expect at least a 2 night hospital stay for evaluation and management of problems as outlined above. At the time of this admission I do not reasonably expected evaluation and management of this problem will require more than a 96 hour hospital stay. DISPOSITION-anticipate discharge to home after the hospital stay. PRIMARY CARE PROVIDER-Dr. Aponte
[2019-10-19] MEDS: Benzonatate 100 MG Cap PO SCH ×2 (13:48→20:11)
--- NOTE | 2019-10-19 15:54 | CONS ---
DATE OF SERVICE: 10/19/2019 REFERRING PHYSICIAN: CONSULTING PHYSICIAN: Deysi Phillips PA-C REASON FOR CONSULTATION: Astrid Cordero is a 59-year-old female, who Romeo Serrano MD of Surgery Department to do a consultation in regard to a right hilar mass. HISTORY OF PRESENT ILLNESS: History of symptoms started over the last 6 weeks. She states she was not feeling well, had a nonproductive cough, and became quite short of breath, significantly worse over the last week and half. She was in the ER and was started on Zithromax and Solu-Medrol. She returned to the emergency room and chest x-ray showed an increase in the right lung infiltrate, right perihilar fullness and a CT scan showed a large mass in the hilar region, which was thought to be causing postobstructive pneumonia. Other symptoms include a 30-pound weight loss and increasing weakness. She was admitted to the hospital for treatments of pneumonia and further evaluation of the hilar mass. Surgery was consulted in regard to doing the bronchoscopy after pneumonia clears. ALLERGIES: SHE IS UNABLE TO TAKE TYLENOL DUE TO LIVER PROBLEMS. HOME MEDICATIONS: See EMR. PAST MEDICAL HISTORY: Wears corrective lenses for impaired vision, hypertension, hypothyroidism, cirrhosis of the liver. PAST SURGICAL HISTORY: Includes cataract surgery. SOCIAL HISTORY: She is . Drinks soda and coffee. Smokes one pack a day. No alcohol for 6 years. REVIEW OF SYSTEMS: GENERAL: Reports a 30-pound weight loss, weakness, fatigue, decreased appetite. No fever or chills. HEENT: Negative. LUNGS: Shortness of breath, cough. HEART: Denies any chest pain. Fast, irregular heart beat. GI: No nausea, vomiting, diarrhea, or constipation. : Negative for UTI signs and symptoms. MUSCULOSKELETAL: States she does generalize hurt all over. SKIN: Negative. PSYCHIATRIC: Negative. NEURO: No headaches, dizziness, loss of coordination. HEMATOLOGIC/LYMPHATIC: Negative. PHYSICAL EXAMINATION: GENERAL: Astrid Pacheco is a pleasant 59-year-old female. She is sitting on the edge of the bed, quite short of breath. VITAL SIGNS: Height 5 feet 2 inches, weight is 211 pounds, BMI 38.6. TPR at 06:56, 98.5, 112, 16; blood pressure 129/64. HEENT: Negative. NECK: Supple. HEART: Regular rate and rhythm. Tachycardia noted. LUNGS: Decreased breath sounds bilaterally, but unable to take a deep breath. She is pretty gasping for air. ABDOMEN: Soft, nontender. EXTREMITIES: Without peripheral edema. ASSESSMENT: 1. Postobstructive pneumonia, right lung. 2. Right hilar mass. 3. Hypoxia, respiratory failure. 4. Hepatic cirrhosis. PLAN: To schedule and have consent signed for bronchoscopy after pneumonia has been adequately treated. Thank you for this consultation. Deysi Phillips PA-C /[id number]
[2019-10-19] MEDS: cefTRIAXone 1 GM in Sodium Chloride 0.9% 50 ML IV SCH (16:48)
[2019-10-20] MEDS: Codeine/guaiFENesin 100mg-10 MG/5 ML Syrup 10 ML Cup PO PRN ×2 (02:42→21:08)
[2019-10-20] MEDS: Doxycycline 100 MG in Sodium Chloride 0.9% 100 ML IV SCH ×2 (05:19→17:33)
[2019-10-20] MEDS: Albuterol/Ipratropium 3.0-0.5 MG/3 ML Neb Soln NEB SCH ×4 (07:16→21:08)
[2019-10-20] MEDS: Levothyroxine 25 MCG Tab PO SCH (07:42)
[2019-10-20] MEDS ORDERED: Potassium Chloride 20 MEQ Tab.ER PO ONE ×2 (09:00→13:00)
[2019-10-20] MEDS: Hydrochlorothiazide 25 MG Tab PO SCH (10:20)
[2019-10-20] MEDS: Lactobacillus Rhamnosus GG (Probiotic) Cap PO SCH ×2 (10:20→21:08)
[2019-10-20] MEDS: Nicotine 21 MG/24 Hr Patch TRDERM SCH (10:20)
[2019-10-20] MEDS: Potassium Chloride 20 MEQ, Lidocaine 1% 2 ML in Sodium Chloride 0.9% 100 ML IV SCH ×2 (10:21→12:44)
[2019-10-20] MEDS: Benzonatate 100 MG Cap PO SCH ×3 (10:21→21:08)
--- NOTE | 2019-10-20 10:51 | PCM.PN ---
- General Info Date of Service: 10/20/19 Subjective Update: Ms. Pacheco has improved since yesterday with less cough, remained short of breath and becomes hypoxic with relatively minimal exertion. No significant temperature elevation with stable vital signs. White blood cell count has improved but is not yet within normal range. Functional Status: Reports: Urinating - Review of Systems General: Reports: Weakness. Denies: Fever, Chills Pulmonary: Reports: Shortness of Breath, Cough, Sputum. Denies: Hemoptysis, Wheezing Cardiovascular: Reports: Dyspnea on Exertion. Denies: Chest Pain, Palpitations , Orthopnea, PND, Edema, Lightheadedness Gastrointestinal: Reports: No Symptoms - Patient Data Vitals - Most Recent: Last Vital Signs Temp 96.8 F L 10/20/19 10:32 Pulse 91 10/20/19 10:32 Resp 26 H 10/20/19 10:32 BP 109/67 10/20/19 10:32 Pulse Ox 94 L 10/20/19 10:32 Weight - Most Recent: 218 lb 4.122 oz I&O - Last 24 Hours: Intake & Output 10/19/19 10/20/19 10/20/19 22:59 06:59 14:59 Intake Total 1450 1621 Output Total 900 Balance 550 1621 Lab Results Last 24 Hours: Laboratory Results - last 24 hr 10/20/19 10/20/19 Range/Units 06:23 06:23 WBC 13.5 H (4.5-11.0) K/uL RBC 4.28 (3.30-5.50) M/uL Hgb 11.0 L (12.0-15.0) g/dL Hct 36.1 (36.0-48.0) % MCV 84 (80-98) fL MCH 26 L (27-31) pg MCHC 31 L (32-36) % Plt Count 207 (150-400) K/uL Neut % (Auto) 78 H (36-66) % Lymph % (Auto) 6 L (24-44) % [place] % (Auto) 15 H (2-6) % Eos % (Auto) 0 L (2-4) % Baso % (Auto) 0 (0-1) % Sodium 132 L (140-148) mmol/L Potassium 3.0 L (3.6-5.2) mmol/L Chloride 97 L (100-108) mmol/L Carbon Dioxide 28 (21-32) mmol/L Anion Gap 10.0 (5.0-14.0) mmol/L BUN 5 L (7-18) mg/dL Creatinine 0.6 (0.6-1.0) mg/dL Est Cr Clr Drug Dosing 77.88 mL/min Estimated GFR (MDRD) > 60 (>60) Glucose 106 (74-106) mg/dL Calcium 8.4 L (8.5-10.1) mg/dL Balta Results Last 24 Hours: Microbiology 10/18/19 23:18 Gram Stain - Final Sputum - Expectorated Respiratory Culture - Preliminary NORMAL RESPIRATORY ANGELY 1 DAY 10/18/19 16:25 Aerobic Blood Culture - Preliminary Blood - Arm, Right Anaerobic Blood Culture - Preliminary NO GROWTH AFTER 1 DAY 10/18/19 15:15 Aerobic Blood Culture - Preliminary Blood - Artery NO GROWTH AFTER 1 DAY Anaerobic Blood Culture - Preliminary NO GROWTH AFTER 1 DAY Med Orders - Current: Current Medications Albuterol (Proventil Neb Soln) 2.5 mg NEB Q4H PRN PRN Reason: Wheezing Last Admin: 10/19/19 23:06 Dose: 2.5 mg Albuterol/Ipratropium (Duoneb 3.0-0.5 Mg/3 Ml) 3 ml NEB QIDRT [facility] Last Admin: 10/20/19 07:16 Dose: 3 ml Benzocaine/Menthol (Cepacol Sore Throat) 1 lozenge MUCMEM ASDIRECTED PRN PRN Reason: Cough Benzonatate (Tessalon Perles) 200 mg PO TID [facility] Last Admin: 10/20/19 10:21 Dose: 200 mg Guaifenesin/Codeine Phosphate (Robitussin Ac) 10 ml PO Q4H PRN PRN Reason: Cough Last Admin: 10/20/19 02:42 Dose: 10 ml Hydrochlorothiazide (Hydrochlorothiazide) 25 mg PO DAILY [facility] Last Admin: 10/20/19 10:20 Dose: 25 mg Ceftriaxone Sodium 1 gm/ (Sodium Chloride) 50 mls @ 100 mls/hr IV Q24H [facility] Last Admin: 10/19/19 16:48 Dose: 100 mls/hr Doxycycline Hyclate 100 mg/ (Sodium Chloride) 100 mls @ 100 mls/hr IV Q12H [facility] Last Admin: 10/20/19 05:19 Dose: 100 mls/hr Potassium Chloride 20 meq/Lidocaine HCl 2 ml/ Sodium Chloride 112 mls @ 56 mls/ hr IV Q2H [facility] Stop: 10/20/19 13:59 Last Admin: 10/20/19 10:21 Dose: 56 mls/hr Lactobacillus Rhamnosus (Culturelle) 1 cap PO BID [facility] Last Admin: 10/20/19 10:20 Dose: 1 cap Levothyroxine Sodium (Levothyroxine) 25 mcg PO ACBREAKFAST [facility] Last Admin: 10/20/19 07:42 Dose: 25 mcg Nicotine (Habitrol) 21 mg TRDERM DAILY [facility] Last Admin: 10/20/19 10:20 Dose: 21 mg Nicotine Polacrilex (Nicorelief) 2 mg CHEW Q1H PRN PRN Reason: Other Ondansetron HCl (Zofran) 4 mg IV Q4H PRN PRN Reason: Nausea/Vomiting Oxycodone HCl (Oxycodone) 5 mg PO Q4H PRN PRN Reason: Pain (moderate 4-6) Polyethylene Glycol (Miralax) 17 gm PO DAILY PRN PRN Reason: Constipation Potassium Chloride (Klor-Con M20) 40 meq PO ONETIME ONE Stop: 10/20/19 13:01 Sodium Chloride (Saline Flush) 10 ml FLUSH ASDIRECTED PRN PRN Reason: Keep Vein Open Discontinued Medications Albuterol (Proventil Neb Soln) 2.5 mg NEB ONETIME ONE Stop: 10/18/19 13:21 Last Admin: 10/18/19 14:02 Dose: 2.5 mg Sodium Chloride (Normal Saline) 1,000 mls @ 999 mls/hr IV ASDIRECTED [facility] Last Admin: 10/18/19 14:39 Dose: 999 mls/hr Sodium Chloride (Normal Saline) 100 mls @ 4 mls/sec IV ASDIRECTED [facility] Stop: 10/18/19 14:31 Last Admin: 10/18/19 14:29 Dose: 4 mls/sec Sodium Chloride (Normal Saline) 1,000 mls @ 125 mls/hr IV ASDIRECTED [facility] Last Admin: 10/19/19 11:56 Dose: 125 mls/hr Sodium Chloride (Normal Saline) 1,000 mls @ 50 mls/hr IV ASDIRECTED [facility] Last Admin: 10/20/19 05:22 Dose: 50 mls/hr Iopamidol (Isovue-370 (76%)) 100 ml IV . DIRECTED [facility] Stop: 10/18/19 14:31 Last Admin: 10/18/19 14:28 Dose: 100 ml Potassium Chloride (Klor-Con M20) 40 meq PO ONETIME ONE Stop: 10/20/19 09:01 Last Admin: 10/20/19 10:30 Dose: 40 meq Sodium Chloride (Saline Flush) 10 ml FLUSH ONETIME [facility] Last Admin: 10/18/19 14:29 Dose: 10 ml - Exam Quality Assessment: Supplemental Oxygen, DVT Prophylaxis General: Alert, Oriented, Cooperative, Moderate Distress Lungs: Decreased Breath Sounds, Rhonchi. No: Rales, Rub, Wheezing Cardiovascular: Regular Rate, Regular Rhythm, No Murmurs GI/Abdominal Exam: Soft, Non-Tender, No Organomegaly, No Distention Extremities: Non-Tender, No Pedal Edema Sepsis Event Note - Evaluation Sepsis Screening Result: Sepsis Risk - Focused Exam Vital Signs: Vital Signs Temp Pulse Resp BP Pulse Ox 10/20/19 10:32 96.8 F L 91 26 H 109/67 94 L 10/20/19 07:34 97.4 F 93 26 H 110/63 94 L 10/20/19 07:06 97 10/20/19 02:43 96.1 F L 95 30 H 116/65 90 L 10/20/19 01:04 93 L 10/19/19 23:12 97.6 F 101 H 32 H 114/60 92 L Date Exam was Performed: 10/20/19 Time Exam was Performed: 10:49 - Problem List Review Problem List Initiated/Reviewed/Updated: Yes - My Orders Last 24 Hours: My Active Orders 10/19/19 14:00 Benzonatate [Tessalon Perles] 200 mg PO TID 10/20/19 10:00 Potassium Chloride 20 meq Lidocaine 1% [Xylocaine 1%] 2 ml Sodium Chloride 0.9 % [Normal Saline] 100 ml IV Q2H 10/20/19 10:46 Convert IV to Saline Lock [OM.PC] Routine 10/20/19 13:00 Potassium Chloride [Klor-Con M20] 40 meq PO ONETIME ONE 10/20/19 17:00 POTASSIUM,K [CHEM] Stat 10/21/19 05:00 BASIC METABOLIC PANEL,BMP [CHEM] Timed CBC WITH AUTO DIFF [HEME] Timed MAGNESIUM [CHEM] Timed - Plan Plan:: ASSESSMENT AND PLAN POSTOBSTRUCTIVE PNEUMONIA RIGHT LUNG-right lung infiltrates as well as right hilar mass identified on CT scan. -Blood and sputum cultures pending -IV ceftriaxone and doxycycline pending culture results -Tessalon Perles 3 times daily -Robitussin AC as needed RIGHT HILAR MASS-probable underlying malignancy -Consult Dr. Winston for bronchoscopy after pneumonia has been adequately treated and shortness of breath with hypoxia have improved HYPOXIC RESPIRATORY FAILURE-underlying COPD, compromised by current pneumonia and right hilar mass -Supplemental oxygen as needed -Nebulized albuterol and DuoNebs HEPATIC CIRRHOSIS-previous history of long-term alcohol abuse, has not consumed alcohol over the past 6 years. MAINTENANCE ISSUES -DVT prophylaxis; SCUDs, hold on anticoagulation because of possible bronchoscopy -GI prophylaxis; not indicated -Mendez catheter; not indicated -Nutrition; regular diet -Nicotine dependence; nicotine patch and gum as needed CODE STATUS-FULL CODE ADMISSION STATUS-patient will be admitted to inpatient status, expect at least a 2 night hospital stay for evaluation and management of problems as outlined above. At the time of this admission I do not reasonably expected evaluation and management of this problem will require more than a 96 hour hospital stay. DISPOSITION-anticipate discharge to home after the hospital stay. PRIMARY CARE PROVIDER-Dr. Aponte
--- NOTE | 2019-10-20 12:06 | PN ---
DATE OF SERVICE: 10/20/2019 SUBJECTIVE: Astrid states she thinks she is feeling better. She said she was able to sleep about 2 hours last night. Continues to be very short of breath, is afebrile. REVIEW OF SYSTEMS: Remainder of review of systems negative for any pertinent positives and negatives. OBJECTIVE: GENERAL: Astrid is a pleasant 59-year-old female. VITAL SIGNS: TPR 97.4, 93, 26, blood pressure 110/63, O2 sats by pulse oximetry is 94% on 3 L. HEENT: Negative. NECK: Supple. HEART: Regular rate and rhythm. LUNGS: Decreased breath sounds. Short of breath leaning forward. EXTREMITIES: Without peripheral edema. ASSESSMENT: 1. Postobstructive pneumonia, right lung. 2. Right hilar mass. 3. Hypoxia, respiratory failure. 4. Hepatic cirrhosis. PLAN: To schedule and have consent signed for bronchoscopy after pneumonia has been cleared and is considered medically safe by Romeo Serrano MD. We will evaluate p.r.n. or in a.m. Deysi Phillips PA-C /[id number]
[2019-10-20] MEDS: Polyethylene Glycol 3350 Powder 17 GM Packet PO PRN (14:35)
[2019-10-20] MEDS: cefTRIAXone 1 GM in Sodium Chloride 0.9% 50 ML IV SCH (16:16)
[2019-10-21] MEDS: Doxycycline 100 MG in Sodium Chloride 0.9% 100 ML IV SCH ×2 (06:21→17:46)
[2019-10-21] MEDS: Albuterol/Ipratropium 3.0-0.5 MG/3 ML Neb Soln NEB SCH ×4 (07:20→20:55)
[2019-10-21] MEDS: Nicotine 21 MG/24 Hr Patch TRDERM SCH (08:07)
[2019-10-21] MEDS: Levothyroxine 25 MCG Tab PO SCH (08:08)
[2019-10-21] MEDS: Lactobacillus Rhamnosus GG (Probiotic) Cap PO SCH ×2 (08:08→20:55)
[2019-10-21] MEDS: Hydrochlorothiazide 25 MG Tab PO SCH (08:08)
[2019-10-21] MEDS: Benzonatate 100 MG Cap PO SCH ×3 (08:08→20:55)
--- NOTE | 2019-10-21 10:55 | PCM.PN ---
- General Info Date of Service: 10/21/19 Subjective Update: Ms. Pacheco has noted further modest improvement over the last 24 hours less shortness of breath and cough. Appetite is remained somewhat poor but she does have adequate intake of liquids. White blood cell count remains modestly elevated, she has been afebrile over the last 24 hours. Continued symptoms with shortness of breath with exertion. Functional Status: Reports: Urinating. Denies: Tolerating Diet - Review of Systems General: Reports: Weakness, Fatigue, Malaise. Denies: Fever, Chills Pulmonary: Reports: Shortness of Breath, Cough, Sputum, Wheezing. Denies: Pleuritic Chest Pain, Hemoptysis Cardiovascular: Reports: Dyspnea on Exertion. Denies: Chest Pain, Palpitations , Orthopnea, PND, Edema, Lightheadedness Gastrointestinal: Reports: No Symptoms - Patient Data Vitals - Most Recent: Last Vital Signs Temp 95.8 F L 10/21/19 09:58 Pulse 85 10/21/19 09:58 Resp 24 H 10/21/19 09:58 BP 120/65 10/21/19 09:58 Pulse Ox 95 10/21/19 09:58 Weight - Most Recent: 205 lb 14.588 oz I&O - Last 24 Hours: Intake & Output 10/20/19 10/21/19 10/21/19 22:59 06:59 14:59 Intake Total 902 400 Output Total 200 600 Balance 702 400 -600 Lab Results Last 24 Hours: Laboratory Results - last 24 hr 10/20/19 10/21/19 10/21/19 Range/Units 17:10 04:50 04:50 WBC 13.8 H (4.5-11.0) K/uL RBC 4.31 (3.30-5.50) M/uL Hgb 11.3 L (12.0-15.0) g/dL Hct 36.4 (36.0-48.0) % MCV 85 (80-98) fL MCH 26 L (27-31) pg MCHC 31 L (32-36) % Plt Count 222 (150-400) K/uL Neut % (Auto) 82 H (36-66) % Lymph % (Auto) 5 L (24-44) % Dane % (Auto) 12 H (2-6) % Eos % (Auto) 0 L (2-4) % Baso % (Auto) 0 (0-1) % Sodium 135 L (140-148) mmol/L Potassium 4.0 3.8 (3.6-5.2) mmol/L Chloride 100 (100-108) mmol/L Carbon Dioxide 32 (21-32) mmol/L Anion Gap 6.8 (5.0-14.0) mmol/L BUN 6 L (7-18) mg/dL Creatinine 0.5 L (0.6-1.0) mg/dL Est Cr Clr Drug Dosing 93.45 mL/min Estimated GFR (MDRD) > 60 (>60) Glucose 112 H (74-106) mg/dL Calcium 9.2 (8.5-10.1) mg/dL Magnesium 2.0 (1.8-2.4) mg/dL Balta Results Last 24 Hours: Microbiology 10/18/19 16:25 Aerobic Blood Culture - Preliminary Blood - Arm, Right Anaerobic Blood Culture - Preliminary NO GROWTH AFTER 2 DAYS 10/18/19 23:18 Gram Stain - Final Sputum - Expectorated Respiratory Culture - Final NORMAL RESPIRATORY ANGELY 2 DAYS 10/18/19 15:15 Aerobic Blood Culture - Preliminary Blood - Artery NO GROWTH AFTER 2 DAYS Anaerobic Blood Culture - Preliminary NO GROWTH AFTER 2 DAYS Med Orders - Current: Current Medications Albuterol (Proventil Neb Soln) 2.5 mg NEB Q4H PRN PRN Reason: Wheezing Last Admin: 10/19/19 23:06 Dose: 2.5 mg Albuterol/Ipratropium (Duoneb 3.0-0.5 Mg/3 Ml) 3 ml NEB QIDRT [facility] Last Admin: 10/21/19 07:20 Dose: 3 ml Benzocaine/Menthol (Cepacol Sore Throat) 1 lozenge MUCMEM ASDIRECTED PRN PRN Reason: Cough Benzonatate (Tessalon Perles) 200 mg PO TID [facility] Last Admin: 10/21/19 08:08 Dose: 200 mg Guaifenesin/Codeine Phosphate (Robitussin Ac) 10 ml PO Q4H PRN PRN Reason: Cough Last Admin: 10/20/19 21:08 Dose: 10 ml Hydrochlorothiazide (Hydrochlorothiazide) 25 mg PO DAILY [facility] Last Admin: 10/21/19 08:08 Dose: 25 mg Ceftriaxone Sodium 1 gm/ (Sodium Chloride) 50 mls @ 100 mls/hr IV Q24H [facility] Last Admin: 10/20/19 16:16 Dose: 100 mls/hr Doxycycline Hyclate 100 mg/ (Sodium Chloride) 100 mls @ 100 mls/hr IV Q12H [facility] Last Admin: 10/21/19 06:21 Dose: 100 mls/hr Lactobacillus Rhamnosus (Culturelle) 1 cap PO BID [facility] Last Admin: 10/21/19 08:08 Dose: 1 cap Levothyroxine Sodium (Levothyroxine) 25 mcg PO ACBREAKFAST [facility] Last Admin: 10/21/19 08:08 Dose: 25 mcg Nicotine (Habitrol) 21 mg TRDERM DAILY [facility] Last Admin: 10/21/19 08:07 Dose: 21 mg Nicotine Polacrilex (Nicorelief) 2 mg CHEW Q1H PRN PRN Reason: Other Ondansetron HCl (Zofran) 4 mg IV Q4H PRN PRN Reason: Nausea/Vomiting Oxycodone HCl (Oxycodone) 5 mg PO Q4H PRN PRN Reason: Pain (moderate 4-6) Polyethylene Glycol (Miralax) 17 gm PO DAILY PRN PRN Reason: Constipation Last Admin: 10/20/19 14:35 Dose: 17 gm Sodium Chloride (Saline Flush) 10 ml FLUSH ASDIRECTED PRN PRN Reason: Keep Vein Open Discontinued Medications Albuterol (Proventil Neb Soln) 2.5 mg NEB ONETIME ONE Stop: 10/18/19 13:21 Last Admin: 10/18/19 14:02 Dose: 2.5 mg Sodium Chloride (Normal Saline) 1,000 mls @ 999 mls/hr IV ASDIRECTED [facility] Last Admin: 10/18/19 14:39 Dose: 999 mls/hr Sodium Chloride (Normal Saline) 100 mls @ 4 mls/sec IV ASDIRECTED [facility] Stop: 10/18/19 14:31 Last Admin: 10/18/19 14:29 Dose: 4 mls/sec Sodium Chloride (Normal Saline) 1,000 mls @ 125 mls/hr IV ASDIRECTED [facility] Last Admin: 10/19/19 11:56 Dose: 125 mls/hr Sodium Chloride (Normal Saline) 1,000 mls @ 50 mls/hr IV ASDIRECTED [facility] Last Admin: 10/20/19 05:22 Dose: 50 mls/hr Potassium Chloride 20 meq/Lidocaine HCl 2 ml/ Sodium Chloride 112 mls @ 56 mls/ hr IV Q2H [facility] Stop: 10/20/19 13:59 Last Admin: 10/20/19 12:44 Dose: 56 mls/hr Iopamidol (Isovue-370 (76%)) 100 ml IV . DIRECTED [facility] Stop: 10/18/19 14:31 Last Admin: 10/18/19 14:28 Dose: 100 ml Potassium Chloride (Klor-Con M20) 40 meq PO ONETIME ONE Stop: 10/20/19 09:01 Last Admin: 10/20/19 10:30 Dose: 40 meq Potassium Chloride (Klor-Con M20) 40 meq PO ONETIME ONE Stop: 10/20/19 13:01 Last Admin: 10/20/19 12:45 Dose: 40 meq Sodium Chloride (Saline Flush) 10 ml FLUSH ONETIME [facility] Last Admin: 10/18/19 14:29 Dose: 10 ml - Exam General: Alert, Oriented, Cooperative, Moderate Distress Lungs: Clear to Auscultation, Normal Respiratory Effort, Decreased Breath Sounds. No: Rales, Rhonchi, Wheezing Cardiovascular: Regular Rate, Regular Rhythm, No Murmurs GI/Abdominal Exam: Soft, Non-Tender, No Organomegaly, No Distention Extremities: Non-Tender, No Pedal Edema Sepsis Event Note - Evaluation Sepsis Screening Result: Severe Sepsis Risk - Focused Exam Vital Signs: Vital Signs Temp Pulse Resp BP Pulse Ox 10/21/19 09:58 95.8 F L 85 24 H 120/65 95 10/21/19 07:39 95 10/21/19 07:20 101 H 10/21/19 07:00 95.7 F L 76 20 118/62 94 L 10/21/19 03:02 95.8 F L 97 22 H 129/81 93 L Date Exam was Performed: 10/21/19 Time Exam was Performed: 10:53 - Problem List Review Problem List Initiated/Reviewed/Updated: Yes - My Orders Last 24 Hours: My Active Orders 10/20/19 10:46 Convert IV to Saline Lock [OM.PC] Routine 10/21/19 10:52 RT Aerosol Therapy [RC] ASDIRECTED RT Acapella [RESPCARE] Routine 10/21/19 21:00 Acetylcysteine [Mucomyst 20%] 200 mg NEB BIDRT 10/22/19 05:00 CBC WITH AUTO DIFF [HEME] Timed 10/22/19 05:11 POTASSIUM,K [CHEM] AM - Plan Plan:: ASSESSMENT AND PLAN POSTOBSTRUCTIVE PNEUMONIA RIGHT LUNG-right lung infiltrates as well as right hilar mass identified on CT scan. -Blood and sputum cultures pending -IV ceftriaxone and doxycycline pending culture results -Tessalon Perles 3 times daily -Robitussin AC as needed -Acapella at bedside -Mucomyst nebs RIGHT HILAR MASS-probable underlying malignancy -Consult Dr. Winston for bronchoscopy after pneumonia has been adequately treated and shortness of breath with hypoxia has improved HYPOXIC RESPIRATORY FAILURE-underlying COPD, compromised by current pneumonia and right hilar mass -Supplemental oxygen as needed -Nebulized albuterol and DuoNebs HEPATIC CIRRHOSIS-previous history of long-term alcohol abuse, has not consumed alcohol over the past 6 years. MAINTENANCE ISSUES -DVT prophylaxis; SCUDs, hold on anticoagulation because of possible bronchoscopy -GI prophylaxis; not indicated -Mendez catheter; not indicated -Nutrition; regular diet -Nicotine dependence; nicotine patch and gum as needed CODE STATUS-FULL CODE ADMISSION STATUS-patient will be admitted to inpatient status, expect at least a 2 night hospital stay for evaluation and management of problems as outlined above. At the time of this admission I do not reasonably expected evaluation and management of this problem will require more than a 96 hour hospital stay. DISPOSITION-anticipate discharge to home after the hospital stay. PRIMARY CARE PROVIDER-Dr. Aponte
[2019-10-21] MEDS: cefTRIAXone 1 GM in Sodium Chloride 0.9% 50 ML IV SCH (15:54)
[2019-10-21] MEDS: Codeine/guaiFENesin 100mg-10 MG/5 ML Syrup 10 ML Cup PO PRN (17:51)
[2019-10-21] MEDS: Acetylcysteine 20% 200 MG/ML 4 ML Nebulizer Soln SDV NEB SCH (21:00)
[2019-10-22] MEDS: Doxycycline 100 MG in Sodium Chloride 0.9% 100 ML IV SCH (06:21)
[2019-10-22] MEDS: Levothyroxine 25 MCG Tab PO SCH (07:52)
[2019-10-22] MEDS: Albuterol/Ipratropium 3.0-0.5 MG/3 ML Neb Soln NEB SCH ×4 (07:58→20:42)
[2019-10-22] MEDS: Acetylcysteine 20% 200 MG/ML 4 ML Nebulizer Soln SDV NEB SCH ×2 (07:58→20:43)
[2019-10-22] MEDS: Lactobacillus Rhamnosus GG (Probiotic) Cap PO SCH ×2 (08:01→20:42)
[2019-10-22] MEDS: Benzonatate 100 MG Cap PO SCH ×3 (08:01→20:42)
[2019-10-22] MEDS: Nicotine 21 MG/24 Hr Patch TRDERM SCH (08:01)
[2019-10-22] MEDS: Hydrochlorothiazide 25 MG Tab PO SCH (08:02)
[2019-10-22] MEDS ORDERED: Potassium Chloride 20 MEQ Tab.ER PO ONE ×2 (09:00→17:00)
--- NOTE | 2019-10-22 11:16 | PCM.PN ---
- General Info Date of Service: 10/22/19 Subjective Update: Ms. Pacheco in afebrile but also continues to experience significant hypoxia especially with exertion. Cough is overall better but she feels short of breath and desaturates with minimal activity. Vital signs have otherwise been stable. Blood cell count remains elevated at 14,000. - Review of Systems General: Reports: Weakness, Fatigue. Denies: Fever, Chills, Appetite Pulmonary: Reports: Shortness of Breath, Cough, Sputum, Wheezing. Denies: Pleuritic Chest Pain, Hemoptysis Cardiovascular: Reports: Dyspnea on Exertion. Denies: Chest Pain, Palpitations , Orthopnea, PND, Edema, Lightheadedness Gastrointestinal: Reports: No Symptoms - Patient Data Vitals - Most Recent: Last Vital Signs Temp 96.1 F L 10/22/19 10:07 Pulse 92 10/22/19 10:07 Resp 16 10/22/19 10:07 BP 112/74 10/22/19 10:07 Pulse Ox 93 L 10/22/19 10:07 Weight - Most Recent: 204 lb 2.369 oz I&O - Last 24 Hours: Intake & Output 10/21/19 10/22/19 10/22/19 22:59 06:59 14:59 Intake Total 50 100 Output Total 300 300 400 Balance -250 -200 -400 Lab Results Last 24 Hours: Laboratory Results - last 24 hr 10/22/19 10/22/19 Range/Units 04:50 04:50 WBC 14.0 H (4.5-11.0) K/uL RBC 4.49 (3.30-5.50) M/uL Hgb 11.7 L (12.0-15.0) g/dL Hct 37.9 (36.0-48.0) % MCV 84 (80-98) fL MCH 26 L (27-31) pg MCHC 31 L (32-36) % Plt Count 276 (150-400) K/uL Neut % (Auto) 80 H (36-66) % Lymph % (Auto) 6 L (24-44) % [place] % (Auto) 14 H (2-6) % Eos % (Auto) 0 L (2-4) % Baso % (Auto) 0 (0-1) % Potassium 3.2 L (3.6-5.2) mmol/L Balta Results Last 24 Hours: Microbiology 03/17/20 15:15 Aerobic Blood Culture - Preliminary Blood - Artery NO GROWTH AFTER 3 DAYS Anaerobic Blood Culture - Preliminary NO GROWTH AFTER 3 DAYS 10/18/19 16:25 Aerobic Blood Culture - Final Blood - Arm, Right Viridans Streptococcus Anaerobic Blood Culture - Preliminary NO GROWTH AFTER 3 DAYS 10/18/19 23:18 Gram Stain - Final Sputum - Expectorated Respiratory Culture - Final NORMAL RESPIRATORY ANGELY 2 DAYS Med Orders - Current: Current Medications Acetylcysteine (Mucomyst 20%) 200 mg NEB BIDRT [facility] Last Admin: 10/22/19 07:58 Dose: 200 mg Albuterol (Proventil Neb Soln) 2.5 mg NEB Q4H PRN PRN Reason: Wheezing Last Admin: 10/19/19 23:06 Dose: 2.5 mg Albuterol/Ipratropium (Duoneb 3.0-0.5 Mg/3 Ml) 3 ml NEB QIDRT [facility] Last Admin: 10/22/19 07:58 Dose: 3 ml Benzocaine/Menthol (Cepacol Sore Throat) 1 lozenge MUCMEM ASDIRECTED PRN PRN Reason: Cough Benzonatate (Tessalon Perles) 200 mg PO TID [facility] Last Admin: 10/22/19 08:01 Dose: 200 mg Guaifenesin/Codeine Phosphate (Robitussin Ac) 10 ml PO Q4H PRN PRN Reason: Cough Last Admin: 10/21/19 17:51 Dose: 10 ml Hydrochlorothiazide (Hydrochlorothiazide) 25 mg PO DAILY [facility] Last Admin: 10/22/19 08:02 Dose: 25 mg Levofloxacin/Dextrose 750 mg/ (Premix) 150 mls @ 100 mls/hr IV Q24H [facility] Meropenem 1 gm/ Sodium (Chloride) 100 mls @ 200 mls/hr IV Q8H [facility] Lactobacillus Rhamnosus (Culturelle) 1 cap PO BID [facility] Last Admin: 10/22/19 08:01 Dose: 1 cap Levothyroxine Sodium (Levothyroxine) 25 mcg PO ACBREAKFAST [facility] Last Admin: 10/22/19 07:52 Dose: 25 mcg Methylprednisolone Sodium Succinate (Solu-Medrol) 40 mg IVPUSH Q8H [facility] Nicotine (Habitrol) 21 mg TRDERM DAILY [facility] Last Admin: 10/22/19 08:01 Dose: 21 mg Nicotine Polacrilex (Nicorelief) 2 mg CHEW Q1H PRN PRN Reason: Other Ondansetron HCl (Zofran) 4 mg IV Q4H PRN PRN Reason: Nausea/Vomiting Oxycodone HCl (Oxycodone) 5 mg PO Q4H PRN PRN Reason: Pain (moderate 4-6) Polyethylene Glycol (Miralax) 17 gm PO DAILY PRN PRN Reason: Constipation Last Admin: 10/20/19 14:35 Dose: 17 gm Sodium Chloride (Saline Flush) 10 ml FLUSH ASDIRECTED PRN PRN Reason: Keep Vein Open Discontinued Medications Albuterol (Proventil Neb Soln) 2.5 mg NEB ONETIME ONE Stop: 10/18/19 13:21 Last Admin: 10/18/19 14:02 Dose: 2.5 mg Sodium Chloride (Normal Saline) 1,000 mls @ 999 mls/hr IV ASDIRECTED [facility] Last Admin: 10/18/19 14:39 Dose: 999 mls/hr Sodium Chloride (Normal Saline) 100 mls @ 4 mls/sec IV ASDIRECTED [facility] Stop: 10/18/19 14:31 Last Admin: 10/18/19 14:29 Dose: 4 mls/sec Ceftriaxone Sodium 1 gm/ (Sodium Chloride) 50 mls @ 100 mls/hr IV Q24H [facility] Last Admin: 10/21/19 15:54 Dose: 100 mls/hr Doxycycline Hyclate 100 mg/ (Sodium Chloride) 100 mls @ 100 mls/hr IV Q12H [facility] Last Admin: 10/22/19 06:21 Dose: 100 mls/hr Sodium Chloride (Normal Saline) 1,000 mls @ 125 mls/hr IV ASDIRECTED [facility] Last Admin: 10/19/19 11:56 Dose: 125 mls/hr Sodium Chloride (Normal Saline) 1,000 mls @ 50 mls/hr IV ASDIRECTED [facility] Last Admin: 10/20/19 05:22 Dose: 50 mls/hr Potassium Chloride 20 meq/Lidocaine HCl 2 ml/ Sodium Chloride 112 mls @ 56 mls/ hr IV Q2H [facility] Stop: 10/20/19 13:59 Last Admin: 10/20/19 12:44 Dose: 56 mls/hr Iopamidol (Isovue-370 (76%)) 100 ml IV . DIRECTED [facility] Stop: 10/18/19 14:31 Last Admin: 10/18/19 14:28 Dose: 100 ml Potassium Chloride (Klor-Con M20) 40 meq PO ONETIME ONE Stop: 10/20/19 09:01 Last Admin: 10/20/19 10:30 Dose: 40 meq Potassium Chloride (Klor-Con M20) 40 meq PO ONETIME ONE Stop: 10/20/19 13:01 Last Admin: 10/20/19 12:45 Dose: 40 meq Potassium Chloride (Klor-Con M20) 40 meq PO ONETIME ONE Stop: 10/22/19 09:01 Last Admin: 10/22/19 09:57 Dose: 40 meq Sodium Chloride (Saline Flush) 10 ml FLUSH ONETIME [facility] Last Admin: 10/18/19 14:29 Dose: 10 ml - Exam General: Alert, Oriented, Cooperative, No Acute Distress Lungs: Normal Respiratory Effort, Decreased Breath Sounds, Wheezing. No: Rales , Rhonchi Cardiovascular: Regular Rate, Regular Rhythm, No Murmurs GI/Abdominal Exam: Soft, Non-Tender, No Organomegaly, No Distention Extremities: Non-Tender, No Pedal Edema Sepsis Event Note - Evaluation Sepsis Screening Result: Severe Sepsis Risk - Focused Exam Vital Signs: Vital Signs Temp Pulse Resp BP Pulse Ox 10/22/19 10:07 96.1 F L 92 16 112/74 93 L 10/22/19 07:50 90 10/22/19 07:43 96 10/22/19 07:37 95.5 F L 88 20 114/67 98 10/22/19 04:14 97.1 F 102 H 24 H 113/79 93 L 10/22/19 01:28 96 Date Exam was Performed: 10/22/19 Time Exam was Performed: 11:12 - Problem List Review Problem List Initiated/Reviewed/Updated: Yes - My Orders Last 24 Hours: My Active Orders 10/21/19 10:52 RT Acapella [RESPCARE] Routine 10/21/19 17:14 CORONAVIRUS COVID-19, RACHELLE Routine 10/21/19 21:00 Acetylcysteine [Mucomyst 20%] 200 mg NEB BIDRT 10/22/19 11:15 Levofloxacin/Dextrose 5%-Water [Levaquin in D5W 750 MG/150 ML] 750 mg Premix Bag 1 bag IV Q24H Meropenem [Merrem] 1 gm Sodium Chloride 0.9% [Normal Saline] 100 ml IV Q8H methylPREDNISolone Sod Succ [Solu-MEDROL] 40 mg IVPUSH Q8H 10/22/19 17:00 Potassium Chloride [Klor-Con M20] 40 meq PO ONETIME ONE 10/23/19 05:00 BASIC METABOLIC PANEL,BMP [CHEM] Timed CBC WITH AUTO DIFF [HEME] Timed - Plan Plan:: ASSESSMENT AND PLAN POSTOBSTRUCTIVE PNEUMONIA RIGHT LUNG-right lung infiltrates as well as right hilar mass identified on CT scan. Not significantly worse but certainly not improved over the last 2 days. -Blood and sputum cultures pending -Discontinue IV ceftriaxone and doxycycline pending culture results -Solu-Medrol 40 mg IV every 8 hours -Change antibiotic therapy to IV meropenem and levofloxacin -Tessalon Perles 3 times daily -Robitussin AC as needed -Acapella at bedside -Mucomyst nebs RIGHT HILAR MASS-probable underlying malignancy -Consult Dr. Winston for bronchoscopy after pneumonia has been adequately treated and shortness of breath with hypoxia has improved HYPOXIC RESPIRATORY FAILURE-underlying COPD, compromised by current pneumonia and right hilar mass -Supplemental oxygen as needed -Nebulized albuterol and DuoNebs HEPATIC CIRRHOSIS-previous history of long-term alcohol abuse, has not consumed alcohol over the past 6 years. MAINTENANCE ISSUES -DVT prophylaxis; SCUDs, hold on anticoagulation because of possible bronchoscopy -GI prophylaxis; not indicated -Mendez catheter; not indicated -Nutrition; regular diet -Nicotine dependence; nicotine patch and gum as needed CODE STATUS-FULL CODE ADMISSION STATUS-patient will be admitted to inpatient status, expect at least a 2 night hospital stay for evaluation and management of problems as outlined above. At the time of this admission I do not reasonably expected evaluation and management of this problem will require more than a 96 hour hospital stay. DISPOSITION-anticipate discharge to home after the hospital stay. PRIMARY CARE PROVIDER-Dr. Aponte
[2019-10-22] MEDS: methylPREDNISolone Sodium Succinate 40 MG/1 ML SDV IVPUSH SCH ×2 (13:17→20:42)
[2019-10-22] MEDS: Levofloxacin/Dextrose 5%-Water 750 MG in Premix Bag 1 BAG IV SCH (13:21)
[2019-10-22] MEDS: Melatonin 3 MG Tab PO SCH (20:42)
[2019-10-22] MEDS: Codeine/guaiFENesin 100mg-10 MG/5 ML Syrup 10 ML Cup PO PRN (20:43)
[2019-10-23] MEDS: methylPREDNISolone Sodium Succinate 40 MG/1 ML SDV IVPUSH SCH (04:42)
[2019-10-23] MEDS: Albuterol/Ipratropium 3.0-0.5 MG/3 ML Neb Soln NEB SCH ×5 (07:01→19:59)
[2019-10-23] MEDS: Acetylcysteine 20% 200 MG/ML 4 ML Nebulizer Soln SDV NEB SCH ×3 (07:02→20:00)
[2019-10-23] MEDS: Levothyroxine 25 MCG Tab PO SCH (07:33)
[2019-10-23] MEDS: Nicotine 21 MG/24 Hr Patch TRDERM SCH (08:44)
[2019-10-23] MEDS: Hydrochlorothiazide 25 MG Tab PO SCH (08:45)
[2019-10-23] MEDS: Lactobacillus Rhamnosus GG (Probiotic) Cap PO SCH ×3 (08:45→19:59)
[2019-10-23] MEDS: Benzonatate 100 MG Cap PO SCH ×4 (08:45→20:00)
--- NOTE | 2019-10-23 11:22 | PCM.PN ---
- General Info Date of Service: 10/23/19 Subjective Update: Ms. Pacheco has shown improvement over the last 24 hours with less shortness of breath and cough. Vital signs have remained stable and she has been afebrile. White blood cell count is now normalized. Functional Status: Reports: Tolerating Diet, Ambulating, Urinating - Review of Systems General: Reports: Weakness, Fatigue. Denies: Fever, Chills Pulmonary: Reports: Shortness of Breath, Cough, Wheezing. Denies: Pleuritic Chest Pain, Sputum, Hemoptysis Cardiovascular: Reports: Dyspnea on Exertion. Denies: Chest Pain, Palpitations , Orthopnea, PND, Edema, Lightheadedness Gastrointestinal: Reports: No Symptoms - Patient Data Vitals - Most Recent: Last Vital Signs Temp 96.1 F L 10/23/19 10:55 Pulse 89 10/23/19 10:55 Resp 16 10/23/19 10:55 BP 109/56 L 10/23/19 10:55 Pulse Ox 92 L 10/23/19 10:55 Weight - Most Recent: 206 lb 12.8 oz I&O - Last 24 Hours: Intake & Output 10/22/19 10/23/19 10/23/19 22:59 06:59 14:59 Intake Total 300 250 360 Output Total 900 250 Balance -600 250 110 Lab Results Last 24 Hours: Laboratory Results - last 24 hr 10/23/19 10/23/19 Range/Units 04:36 04:36 WBC 10.3 (4.5-11.0) K/uL RBC 4.56 (3.30-5.50) M/uL Hgb 11.9 L (12.0-15.0) g/dL Hct 38.7 (36.0-48.0) % MCV 85 (80-98) fL MCH 26 L (27-31) pg MCHC 31 L (32-36) % Plt Count 278 (150-400) K/uL Neut % (Auto) 90 H (36-66) % Lymph % (Auto) 5 L (24-44) % [place] % (Auto) 5 (2-6) % Eos % (Auto) 0 L (2-4) % Baso % (Auto) 0 (0-1) % Sodium 138 L (140-148) mmol/L Potassium 4.3 (3.6-5.2) mmol/L Chloride 98 L (100-108) mmol/L Carbon Dioxide 37 H (21-32) mmol/L Anion Gap 7.3 (5.0-14.0) mmol/L BUN 10 D (7-18) mg/dL Creatinine 0.5 L (0.6-1.0) mg/dL Est Cr Clr Drug Dosing 93.45 mL/min Estimated GFR (MDRD) > 60 (>60) Glucose 170 H (74-106) mg/dL Calcium 9.1 (8.5-10.1) mg/dL Balta Results Last 24 Hours: Microbiology 10/20/19 14:30 Coronavirus RNA (PCR) - Final Nose, Unspecified 10/18/19 16:25 Aerobic Blood Culture - Final Blood - Arm, Right Viridans Streptococcus Anaerobic Blood Culture - Preliminary NO GROWTH AFTER 4 DAYS 10/18/19 15:15 Aerobic Blood Culture - Preliminary Blood - Artery NO GROWTH AFTER 4 DAYS Anaerobic Blood Culture - Preliminary NO GROWTH AFTER 4 DAYS Med Orders - Current: Current Medications Acetylcysteine (Mucomyst 20%) 200 mg NEB BIDRT [facility] Last Admin: 10/23/19 07:02 Dose: 200 mg Albuterol (Proventil Neb Soln) 2.5 mg NEB Q4H PRN PRN Reason: Wheezing Last Admin: 10/19/19 23:06 Dose: 2.5 mg Albuterol/Ipratropium (Duoneb 3.0-0.5 Mg/3 Ml) 3 ml NEB QIDRT [facility] Last Admin: 10/23/19 10:39 Dose: 3 ml Benzocaine/Menthol (Cepacol Sore Throat) 1 lozenge MUCMEM ASDIRECTED PRN PRN Reason: Cough Benzonatate (Tessalon Perles) 200 mg PO TID [facility] Last Admin: 10/23/19 08:45 Dose: 200 mg Guaifenesin/Codeine Phosphate (Robitussin Ac) 10 ml PO Q4H PRN PRN Reason: Cough Last Admin: 10/22/19 20:43 Dose: 10 ml Hydrochlorothiazide (Hydrochlorothiazide) 25 mg PO DAILY [facility] Last Admin: 10/23/19 08:45 Dose: 25 mg Levofloxacin/Dextrose 750 mg/ (Premix) 150 mls @ 100 mls/hr IV Q24H [facility] Last Admin: 10/22/19 13:21 Dose: 100 mls/hr Meropenem 1 gm/ Sodium (Chloride) 50 mls @ 100 mls/hr IV Q8H [facility] Last Admin: 10/23/19 05:18 Dose: 100 mls/hr Lactated Ringer's (Ringers, Lactated) 1,000 mls @ 125 mls/hr IV ASDIRECTED [facility] Stop: 10/24/19 10:02 Lactobacillus Rhamnosus (Culturelle) 1 cap PO BID [facility] Last Admin: 10/23/19 08:45 Dose: 1 cap Levothyroxine Sodium (Levothyroxine) 25 mcg PO ACBREAKFAST [facility] Last Admin: 10/23/19 07:33 Dose: 25 mcg Melatonin (Melatonin) 9 mg PO BEDTIME [facility] Last Admin: 10/22/19 20:42 Dose: 9 mg Methylprednisolone Sodium Succinate (Solu-Medrol) 40 mg IVPUSH Q8H [facility] Last Admin: 10/23/19 04:42 Dose: 40 mg Nicotine (Habitrol) 21 mg TRDERM DAILY [facility] Last Admin: 10/23/19 08:44 Dose: 21 mg Nicotine Polacrilex (Nicorelief) 2 mg CHEW Q1H PRN PRN Reason: Other Ondansetron HCl (Zofran) 4 mg IV Q4H PRN PRN Reason: Nausea/Vomiting Oxycodone HCl (Oxycodone) 5 mg PO Q4H PRN PRN Reason: Pain (moderate 4-6) Polyethylene Glycol (Miralax) 17 gm PO DAILY PRN PRN Reason: Constipation Last Admin: 10/20/19 14:35 Dose: 17 gm Sodium Chloride (Saline Flush) 10 ml FLUSH ASDIRECTED PRN PRN Reason: Keep Vein Open Discontinued Medications Albuterol (Proventil Neb Soln) 2.5 mg NEB ONETIME ONE Stop: 10/18/19 13:21 Last Admin: 10/18/19 14:02 Dose: 2.5 mg Sodium Chloride (Normal Saline) 1,000 mls @ 999 mls/hr IV ASDIRECTED [facility] Last Admin: 10/18/19 14:39 Dose: 999 mls/hr Sodium Chloride (Normal Saline) 100 mls @ 4 mls/sec IV ASDIRECTED [facility] Stop: 10/18/19 14:31 Last Admin: 10/18/19 14:29 Dose: 4 mls/sec Ceftriaxone Sodium 1 gm/ (Sodium Chloride) 50 mls @ 100 mls/hr IV Q24H [facility] Last Admin: 10/21/19 15:54 Dose: 100 mls/hr Doxycycline Hyclate 100 mg/ (Sodium Chloride) 100 mls @ 100 mls/hr IV Q12H [facility] Last Admin: 10/22/19 06:21 Dose: 100 mls/hr Sodium Chloride (Normal Saline) 1,000 mls @ 125 mls/hr IV ASDIRECTED [facility] Last Admin: 10/19/19 11:56 Dose: 125 mls/hr Sodium Chloride (Normal Saline) 1,000 mls @ 50 mls/hr IV ASDIRECTED [facility] Last Admin: 10/20/19 05:22 Dose: 50 mls/hr Potassium Chloride 20 meq/Lidocaine HCl 2 ml/ Sodium Chloride 112 mls @ 56 mls/ hr IV Q2H [facility] Stop: 10/20/19 13:59 Last Admin: 10/20/19 12:44 Dose: 56 mls/hr Iopamidol (Isovue-370 (76%)) 100 ml IV . DIRECTED [facility] Stop: 10/18/19 14:31 Last Admin: 10/18/19 14:28 Dose: 100 ml Potassium Chloride (Klor-Con M20) 40 meq PO ONETIME ONE Stop: 10/20/19 09:01 Last Admin: 10/20/19 10:30 Dose: 40 meq Potassium Chloride (Klor-Con M20) 40 meq PO ONETIME ONE Stop: 10/20/19 13:01 Last Admin: 10/20/19 12:45 Dose: 40 meq Potassium Chloride (Klor-Con M20) 40 meq PO ONETIME ONE Stop: 10/22/19 09:01 Last Admin: 10/22/19 09:57 Dose: 40 meq Potassium Chloride (Klor-Con M20) 40 meq PO ONETIME ONE Stop: 10/22/19 17:01 Last Admin: 10/22/19 16:01 Dose: 40 meq Sodium Chloride (Saline Flush) 10 ml FLUSH ONETIME [facility] Last Admin: 10/18/19 14:29 Dose: 10 ml - Exam Quality Assessment: DVT Prophylaxis General: Alert, Oriented, Cooperative, Mild Distress Lungs: Decreased Breath Sounds. No: Rales, Rhonchi, Wheezing Cardiovascular: Regular Rate, Regular Rhythm, No Murmurs GI/Abdominal Exam: Soft, Non-Tender, No Organomegaly, No Distention Extremities: Non-Tender, No Pedal Edema Sepsis Event Note - Evaluation Sepsis Screening Result: No Definite Risk - Focused Exam Vital Signs: Vital Signs Temp Pulse Resp BP Pulse Ox 10/23/19 10:55 96.1 F L 89 16 109/56 L 92 L 10/23/19 10:35 90 10/23/19 07:32 88 10/23/19 07:23 95 10/23/19 07:00 95.9 F L 81 18 118/57 L 91 L 10/23/19 03:00 97.5 F 94 14 110/61 95 10/23/19 01:27 90 L Date Exam was Performed: 10/23/19 Time Exam was Performed: 11:18 - Problem List Review Problem List Initiated/Reviewed/Updated: Yes - My Orders Last 24 Hours: My Active Orders 10/22/19 12:00 Levofloxacin/Dextrose 5%-Water [Levaquin in D5W 750 MG/150 ML] 750 mg Premix Bag 1 bag IV Q24H methylPREDNISolone Sod Succ [Solu-MEDROL] 40 mg IVPUSH Q8H 10/22/19 14:00 Meropenem [Merrem] 1 gm Sodium Chloride 0.9% [Normal Saline] 50 ml IV Q8H 10/22/19 21:00 Melatonin 9 mg PO BEDTIME 10/24/19 00:01 Lactated Ringers @ 125 MLS/HR(1000ml) Lactated Ringers [Ringers, Lactated] 1, 000 ml IV ASDIRECTED 10/24/19 Breakfast NPO After Midnight [Nothing per Oral After Midnight Diet] [DIET] - Plan Plan:: ASSESSMENT AND PLAN POSTOBSTRUCTIVE PNEUMONIA RIGHT LUNG-right lung infiltrates as well as right hilar mass identified on CT scan. She feels much better over the last 24 hours with less shortness of breath and cough. Cultures remain negative except for strep viridans cultured from 1 of 4 blood culture vials, felt to represent contamination. -Prednisone 40 mg p.o. daily -IV meropenem and levofloxacin -Tessalon Perles 3 times daily -Robitussin AC as needed -Acapella at bedside -Mucomyst nebs RIGHT HILAR MASS-probable underlying malignancy -Bronchoscopy in a.m., Dr. Winston HYPOXIC RESPIRATORY FAILURE-underlying COPD, compromised by current pneumonia and right hilar mass -Supplemental oxygen as needed -Nebulized albuterol and DuoNebs HEPATIC CIRRHOSIS-previous history of long-term alcohol abuse, has not consumed alcohol over the past 6 years. MAINTENANCE ISSUES -DVT prophylaxis; SCUDs, hold on anticoagulation because of possible bronchoscopy -GI prophylaxis; not indicated -Mendez catheter; not indicated -Nutrition; regular diet -Nicotine dependence; nicotine patch and gum as needed CODE STATUS-FULL CODE ADMISSION STATUS-patient will be admitted to inpatient status, expect at least a 2 night hospital stay for evaluation and management of problems as outlined above. At the time of this admission I do not reasonably expected evaluation and management of this problem will require more than a 96 hour hospital stay. DISPOSITION-anticipate discharge to home after the hospital stay. PRIMARY CARE PROVIDER-Dr. Aponte
[2019-10-23] MEDS: Levofloxacin/Dextrose 5%-Water 750 MG in Premix Bag 1 BAG IV SCH (12:42)
[2019-10-23] MEDS: Codeine/guaiFENesin 100mg-10 MG/5 ML Syrup 10 ML Cup PO PRN ×2 (12:56→19:53)
--- NOTE | 2019-10-23 14:47 | PN ---
DATE OF SERVICE: 10/22/2019 The patient remains relatively poor respiratory status and we will continue with and proceed with a bronchoscopy at the point that Dr. Serrano feels that would be safe to proceed with. I will likely continue to follow the case day-to-day. Reinaldo Winston MD /[id number]
--- NOTE | 2019-10-23 14:53 | PN ---
DATE OF SERVICE: 10/21/2019 The patient has improved somewhat, but still is fairly short of breath and is having quite a bit of coughing. We discussed the case yesterday with Dr. Serrano, and I think she maybe ready for bronchoscopy sometime around Thursday or Thursday. We will continue to check on the patient daily and when bronchoscopy becomes appropriate, we will proceed in that direction. Reinaldo Winston MD /[id number]
[2019-10-23] MEDS: Melatonin 3 MG Tab PO SCH ×2 (19:55→19:59)
[2019-10-24] MEDS ORDERED: Lactated Ringers 1,000 ML IV SCH (00:01)
[2019-10-24] MEDS: Codeine/guaiFENesin 100mg-10 MG/5 ML Syrup 10 ML Cup PO PRN ×2 (02:31→19:59)
[2019-10-24] MEDS: Acetylcysteine 20% 200 MG/ML 4 ML Nebulizer Soln SDV NEB SCH ×2 (07:20→20:58)
[2019-10-24] MEDS: Albuterol/Ipratropium 3.0-0.5 MG/3 ML Neb Soln NEB SCH ×4 (07:20→20:58)
[2019-10-24] MEDS ORDERED: Lidocaine 2% Viscous Solution 15 ML Cup ONE (08:12)
[2019-10-24] MEDS ORDERED: Lidocaine 4% Top Soln 50 ML Bottle ONE (08:12)
[2019-10-24] MEDS ORDERED: Propofol 200 MG/20 ML SDV ONE (08:19)
[2019-10-24] MEDS ORDERED: Lidocaine 4% Top Soln LTA 4 ML Syringe Kit ONE (08:20)
[2019-10-24] MEDS: Levofloxacin/Dextrose 5%-Water 750 MG in Premix Bag 1 BAG IV SCH (11:09)
[2019-10-24] MEDS: predniSONE 20 MG Tab PO SCH (11:10)
[2019-10-24] MEDS: Nicotine 21 MG/24 Hr Patch TRDERM SCH (11:10)
[2019-10-24] MEDS: Lactobacillus Rhamnosus GG (Probiotic) Cap PO SCH ×2 (11:11→20:52)
[2019-10-24] MEDS: Benzonatate 100 MG Cap PO SCH ×3 (11:11→20:53)
[2019-10-24] MEDS: Hydrochlorothiazide 25 MG Tab PO SCH (11:11)
[2019-10-24] MEDS: Levothyroxine 25 MCG Tab PO SCH (11:11)
--- NOTE | 2019-10-24 12:12 | PN ---
DATE OF SERVICE: 10/24/2019 SUBJECTIVE: Astrid is n.p.o. She will be having a bronchoscopy this morning. She states her breathing is better. She has been afebrile. REVIEW OF SYSTEMS: Remainder of review of systems negative for any pertinent positives and negatives. OBJECTIVE: GENERAL: Astrid Pacheco is a pleasant 59-year-old female. She is sitting on the edge of the bed. VITAL SIGNS: TPR at 0700, 95.6; 77; 24; blood pressure is 112/80. She is on 3 L of O2 per nasal cannula and her O2 sats by pulse oximetry is 98%. HEENT: Negative. NECK: Supple. HEART: Regular rate and rhythm. LUNGS: Revealed decreased breath sounds bilaterally. Compared to last week, they have improved, better air exchange. EXTREMITIES: Without peripheral edema. ASSESSMENT: 1. Postobstructive pneumonia, right lung. 2. Right hilar mass. 3. Hypoxia, respiratory failure. 4. Hepatic cirrhosis. PLAN: Orders to be written after bronchoscopy. We will evaluate p.r.n. or in a.m. Deysi Phillips PA-C /[id number]
--- NOTE | 2019-10-24 12:28 | PCM.PN ---
- General Info Date of Service: 10/24/19 Subjective Update: No acute events overnight. Continues to require 3 L of supplemental oxygen. She feels more short of breath and weak and fatigued today after the bronchoscopy. Bronchoscopy did reveal an infiltrative mass in the right mainstem bronchus as expected based on the CT scan. Biopsies and brushings were obtained during the bronchoscopy. Patient is tearful when we talk about the diagnosis of lung cancer though we are awaiting definitive pathology results. She thinks overall she is doing a little better each day for the past couple of days but does not feel as good today as yesterday. Functional Status: Reports: Pain Controlled, Tolerating Diet - Review of Systems General: Reports: Weakness. Denies: Fever Pulmonary: Reports: Shortness of Breath, Cough, Hemoptysis - Patient Data Vitals - Most Recent: Last Vital Signs Temp 36.2 C 10/24/19 10:28 Pulse 96 10/24/19 11:00 Resp 38 H 10/24/19 11:00 BP 104/35 L 10/24/19 11:00 Pulse Ox 95 10/24/19 11:00 Weight - Most Recent: 93.259 kg I&O - Last 24 Hours: Intake & Output 10/23/19 10/24/19 10/24/19 22:59 06:59 14:59 Intake Total 760 170 390 Output Total 300 400 Balance 460 170 -10 Balta Results Last 24 Hours: Microbiology 10/24/19 07:55 TERESA Preparation - Final Other - Lung, Right 10/24/19 07:55 Gram Stain - Final Bronchial Washings - Lung, Right 10/18/19 16:25 Aerobic Blood Culture - Final Blood - Arm, Right Viridans Streptococcus Anaerobic Blood Culture - Final NO GROWTH AFTER 5 DAYS 10/18/19 15:15 Aerobic Blood Culture - Final Blood - Artery NO GROWTH AFTER 5 DAYS Anaerobic Blood Culture - Final NO GROWTH AFTER 5 DAYS Med Orders - Current: Current Medications Acetylcysteine (Mucomyst 20%) 200 mg NEB BIDRT [facility] Last Admin: 10/24/19 07:20 Dose: 200 mg Albuterol (Proventil Neb Soln) 2.5 mg NEB Q4H PRN PRN Reason: Wheezing Last Admin: 10/19/19 23:06 Dose: 2.5 mg Albuterol/Ipratropium (Duoneb 3.0-0.5 Mg/3 Ml) 3 ml NEB QIDRT [facility] Last Admin: 10/24/19 10:39 Dose: 3 ml Benzocaine/Menthol (Cepacol Sore Throat) 1 lozenge MUCMEM ASDIRECTED PRN PRN Reason: Cough Benzonatate (Tessalon Perles) 200 mg PO TID [facility] Last Admin: 10/24/19 11:11 Dose: 200 mg Guaifenesin/Codeine Phosphate (Robitussin Ac) 10 ml PO Q4H PRN PRN Reason: Cough Last Admin: 10/24/19 02:31 Dose: 10 ml Hydrochlorothiazide (Hydrochlorothiazide) 25 mg PO DAILY [facility] Last Admin: 10/24/19 11:11 Dose: 25 mg Levofloxacin/Dextrose 750 mg/ (Premix) 150 mls @ 100 mls/hr IV Q24H [facility] Last Admin: 10/24/19 11:09 Dose: 100 mls/hr Meropenem 1 gm/ Sodium (Chloride) 50 mls @ 100 mls/hr IV Q8H [facility] Last Admin: 10/24/19 05:57 Dose: 100 mls/hr Lactobacillus Rhamnosus (Culturelle) 1 cap PO BID [facility] Last Admin: 10/24/19 11:11 Dose: 1 cap Levothyroxine Sodium (Levothyroxine) 25 mcg PO ACBREAKFAST [facility] Last Admin: 10/24/19 11:11 Dose: 25 mcg Melatonin (Melatonin) 9 mg PO BEDTIME [facility] Last Admin: 10/23/19 19:59 Dose: Not Given Nicotine (Habitrol) 21 mg TRDERM DAILY [facility] Last Admin: 10/24/19 11:10 Dose: 21 mg Nicotine Polacrilex (Nicorelief) 2 mg CHEW Q1H PRN PRN Reason: Other Ondansetron HCl (Zofran) 4 mg IV Q4H PRN PRN Reason: Nausea/Vomiting Oxycodone HCl (Oxycodone) 5 mg PO Q4H PRN PRN Reason: Pain (moderate 4-6) Polyethylene Glycol (Miralax) 17 gm PO DAILY PRN PRN Reason: Constipation Last Admin: 10/20/19 14:35 Dose: 17 gm Prednisone (Prednisone) 40 mg PO DAILY [facility] Last Admin: 10/24/19 11:10 Dose: 40 mg Sodium Chloride (Saline Flush) 10 ml FLUSH ASDIRECTED PRN PRN Reason: Keep Vein Open Discontinued Medications Albuterol (Proventil Neb Soln) 2.5 mg NEB ONETIME ONE Stop: 10/18/19 13:21 Last Admin: 10/18/19 14:02 Dose: 2.5 mg Sodium Chloride (Normal Saline) 1,000 mls @ 999 mls/hr IV ASDIRECTED [facility] Last Admin: 10/18/19 14:39 Dose: 999 mls/hr Sodium Chloride (Normal Saline) 100 mls @ 4 mls/sec IV ASDIRECTED [facility] Stop: 10/18/19 14:31 Last Admin: 10/18/19 14:29 Dose: 4 mls/sec Ceftriaxone Sodium 1 gm/ (Sodium Chloride) 50 mls @ 100 mls/hr IV Q24H [facility] Last Admin: 10/21/19 15:54 Dose: 100 mls/hr Doxycycline Hyclate 100 mg/ (Sodium Chloride) 100 mls @ 100 mls/hr IV Q12H [facility] Last Admin: 10/22/19 06:21 Dose: 100 mls/hr Sodium Chloride (Normal Saline) 1,000 mls @ 125 mls/hr IV ASDIRECTED [facility] Last Admin: 10/19/19 11:56 Dose: 125 mls/hr Sodium Chloride (Normal Saline) 1,000 mls @ 50 mls/hr IV ASDIRECTED [facility] Last Admin: 10/20/19 05:22 Dose: 50 mls/hr Potassium Chloride 20 meq/Lidocaine HCl 2 ml/ Sodium Chloride 112 mls @ 56 mls/ hr IV Q2H [facility] Stop: 10/20/19 13:59 Last Admin: 10/20/19 12:44 Dose: 56 mls/hr Lactated Ringer's (Ringers, Lactated) 1,000 mls @ 125 mls/hr IV ASDIRECTED [facility] Stop: 10/24/19 10:02 Iopamidol (Isovue-370 (76%)) 100 ml IV . DIRECTED [facility] Stop: 10/18/19 14:31 Last Admin: 10/18/19 14:28 Dose: 100 ml Lidocaine (Lta 360 Kit Top Soln) Confirm Administered Dose 4 ml .ROUTE .STK-MED ONE Stop: 10/24/19 08:21 Lidocaine HCl (Xylocaine 2% Viscous) Confirm Administered Dose 15 ml .ROUTE .STK -MED ONE Stop: 10/24/19 08:13 Lidocaine HCl (Xylocaine 4% Top Soln) Confirm Administered Dose 50 ml .ROUTE .STK-MED ONE Stop: 10/24/19 08:13 Methylprednisolone Sodium Succinate (Solu-Medrol) 40 mg IVPUSH Q8H [facility] Last Admin: 10/23/19 04:42 Dose: 40 mg Potassium Chloride (Klor-Con M20) 40 meq PO ONETIME ONE Stop: 10/20/19 09:01 Last Admin: 10/20/19 10:30 Dose: 40 meq Potassium Chloride (Klor-Con M20) 40 meq PO ONETIME ONE Stop: 10/20/19 13:01 Last Admin: 10/20/19 12:45 Dose: 40 meq Potassium Chloride (Klor-Con M20) 40 meq PO ONETIME ONE Stop: 10/22/19 09:01 Last Admin: 10/22/19 09:57 Dose: 40 meq Potassium Chloride (Klor-Con M20) 40 meq PO ONETIME ONE Stop: 10/22/19 17:01 Last Admin: 10/22/19 16:01 Dose: 40 meq Propofol (Diprivan 20 Ml) Confirm Administered Dose 200 mg .ROUTE .STK-MED ONE Stop: 10/24/19 08:20 Sodium Chloride (Saline Flush) 10 ml FLUSH ONETIME [facility] Last Admin: 10/18/19 14:29 Dose: 10 ml - Exam Quality Assessment: Supplemental Oxygen General: Alert, Oriented, Cooperative, Mild Distress Lungs: Decreased Breath Sounds (right midlung area ). No: Normal Respiratory Effort (increased work of breathing ), Wheezing Cardiovascular: Regular Rate, Regular Rhythm GI/Abdominal Exam: Soft, No Distention Extremities: No Pedal Edema Psy/Mental Status: Alert, Normal Affect Sepsis Event Note - Evaluation Sepsis Screening Result: Sepsis Risk - Focused Exam Vital Signs: Vital Signs Temp Pulse Pulse Resp BP Pulse Ox Pulse Ox 10/24/19 11:00 96 38 H 104/35 L 95 10/24/19 10:39 93 93 L 10/24/19 10:28 36.2 C 82 30 H 115/53 L 92 L 10/24/19 10:00 85 30 H 108/64 91 L 10/24/19 09:45 83 48 H 113/60 91 L 10/24/19 09:29 35.7 C L 89 38 H 108/85 90 L 10/24/19 09:10 36.2 C 89 18 125/69 93 L 10/24/19 09:05 86 16 114/67 91 L 10/24/19 09:01 88 16 116/61 91 L 10/24/19 08:55 88 16 118/75 90 L 10/24/19 08:50 36.5 C 92 12 116/69 90 L 10/24/19 07:52 78 10/24/19 07:22 97 10/24/19 07:00 35.3 C L 77 24 H 112/80 98 10/24/19 02:28 35.7 C L 79 18 126/66 96 10/24/19 01:08 95 Date Exam was Performed: 10/24/19 Time Exam was Performed: 13:45 - Problem List Review Problem List Initiated/Reviewed/Updated: Yes - My Orders Last 24 Hours: My Active Orders 10/25/19 05:00 BASIC METABOLIC PANEL,BMP [CHEM] Timed CBC W/O DIFF,HEMOGRAM [HEME] Timed (1) - Plan Plan:: ASSESSMENT AND PLAN POSTOBSTRUCTIVE PNEUMONIA RIGHT LUNG-stable compared to yesterday. White blood cell count is finally normal. No fevers. Still requiring supplemental oxygen. Bronchoscopy confirmed infiltrative mass in the right mainstem bronchus region. -Prednisone 40 mg p.o. 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 -Follow-up pathology -Outpatient oncology referral HYPOXIC RESPIRATORY FAILURE-underlying COPD, compromised by current pneumonia and right hilar mass. I would anticipate a long-term supplemental oxygen requirement. -Supplemental oxygen as needed -Nebulized albuterol and DuoNebs -Qualify for home oxygen in the next 1 or 2 days HEPATIC CIRRHOSIS-previous history of long-term alcohol abuse, has not consumed alcohol over the past 6 years. No decompensation. MAINTENANCE ISSUES -DVT prophylaxis; SCUDs -GI prophylaxis; not indicated -Mendez catheter; not indicated -Nutrition; regular diet -Nicotine dependence; nicotine patch and gum as needed CODE STATUS-FULL CODE DISPOSITION-anticipate discharge to home after the hospital stay. Kirk Carnes MD
--- NOTE | 2019-10-24 13:48 | PN ---
DATE OF SERVICE: 10/23/2019 The patient is clinically quite a bit better in terms of respiratory function. She was lying flat in bed and breathing fairly comfortably. We will ask Dr. Serrano to whether or not she is cleared for bronchoscopy tomorrow and if so, we will proceed with that tomorrow morning. Reinaldo Winston MD /[id number]
[2019-10-24] MEDS: Melatonin 3 MG Tab PO SCH (20:52)
[2019-10-25] MEDS: Codeine/guaiFENesin 100mg-10 MG/5 ML Syrup 10 ML Cup PO PRN ×2 (03:46→21:56)
[2019-10-25] MEDS: Levothyroxine 25 MCG Tab PO SCH (07:05)
[2019-10-25] MEDS: Albuterol/Ipratropium 3.0-0.5 MG/3 ML Neb Soln NEB SCH ×4 (07:15→20:20)
[2019-10-25] MEDS: Acetylcysteine 20% 200 MG/ML 4 ML Nebulizer Soln SDV NEB SCH (07:15)
--- NOTE | 2019-10-25 08:15 | PN ---
DATE OF SERVICE: 10/25/2019 SUBJECTIVE: Astrid is postop day #1 following a bronchoscopy with biopsies and washings. She had a good night, slept well. Afebrile. Oral intake was 540. Urine output was 2550. Has no other concerns or questions. OBJECTIVE: GENERAL: Astrid Pacheco is a pleasant 59-year-old female. VITAL SIGNS: TPR at 0706; 95.1, 81, 20, blood pressure is 93/51. HEENT: Negative. NECK: Supple. HEART: Regular rate and rhythm. LUNGS: Continue to show no change, but coughing is less she states. EXTREMITIES: Negative. ASSESSMENT: 1. Status post bronchoscopy, 10/24/2019. Surgeon: Reinaldo Winston MD. 2. Postobstructive pneumonia, right lung. 3. Right hilar mass. 4. Hypoxia, respiratory failure. 5. Hepatic cirrhosis. PLAN: Continue same treatment plan. We will evaluate p.r.n. from Surgery Department. Deysi Phillips PA-C /[id number]
[2019-10-25] MEDS: Lactobacillus Rhamnosus GG (Probiotic) Cap PO SCH ×2 (09:14→20:13)
[2019-10-25] MEDS: Hydrochlorothiazide 25 MG Tab PO SCH (09:14)
[2019-10-25] MEDS: Benzonatate 100 MG Cap PO SCH ×3 (09:14→20:14)
[2019-10-25] MEDS: Nicotine 21 MG/24 Hr Patch TRDERM SCH (09:15)
[2019-10-25] MEDS: predniSONE 20 MG Tab PO SCH (09:15)
[2019-10-25] MEDS: Polyethylene Glycol 3350 Powder 17 GM Packet PO PRN (09:16)
--- NOTE | 2019-10-25 11:24 | PCM.PN ---
- General Info Date of Service: 10/25/19 Subjective Update: No acute events overnight. Feeling better today than yesterday morning. Still short of breath, especially with activity but a little better. No chest pain. Occasional scant hemoptysis. Appetite a little better. Energy a little better. She did have a good night sleep last night. Pathology still pending. Functional Status: Reports: Pain Controlled, Tolerating Diet - Review of Systems General: Reports: Weakness Pulmonary: Reports: Shortness of Breath, Hemoptysis - Patient Data Vitals - Most Recent: Last Vital Signs Temp 35.9 C L 10/25/19 11:05 Pulse 88 10/25/19 11:05 Resp 20 10/25/19 11:05 BP 110/64 10/25/19 11:05 Pulse Ox 97 10/25/19 11:05 Weight - Most Recent: 93.259 kg I&O - Last 24 Hours: Intake & Output 10/24/19 10/25/19 10/25/19 22:59 06:59 14:59 Intake Total 350 50 240 Output Total 900 850 300 Balance -550 -800 -60 Lab Results Last 24 Hours: Laboratory Results - last 24 hr 10/25/19 10/25/19 Range/Units 05:11 05:11 WBC 12.3 H (4.5-11.0) K/uL RBC 4.49 (3.30-5.50) M/uL Hgb 11.6 L (12.0-15.0) g/dL Hct 38.9 (36.0-48.0) % MCV 87 (80-98) fL MCH 26 L (27-31) pg MCHC 30 L (32-36) % Plt Count 272 (150-400) K/uL Sodium 138 L (140-148) mmol/L Potassium 4.3 (3.6-5.2) mmol/L Chloride 97 L (100-108) mmol/L Carbon Dioxide 39 H (21-32) mmol/L Anion Gap 6.3 (5.0-14.0) mmol/L BUN 12 (7-18) mg/dL Creatinine 0.6 (0.6-1.0) mg/dL Est Cr Clr Drug Dosing 77.88 mL/min Estimated GFR (MDRD) > 60 (>60) Glucose 113 H (74-106) mg/dL Calcium 8.9 (8.5-10.1) mg/dL Balta Results Last 24 Hours: Microbiology 10/24/19 07:55 Gram Stain - Final Bronchial Washings - Lung, Right Respiratory Culture - Preliminary NO GROWTH AFTER 1 DAY 10/24/19 07:55 TERESA Preparation - Final Other - Lung, Right Med Orders - Current: Current Medications Albuterol (Proventil Neb Soln) 2.5 mg NEB Q4H PRN PRN Reason: Wheezing Last Admin: 10/19/19 23:06 Dose: 2.5 mg Albuterol/Ipratropium (Duoneb 3.0-0.5 Mg/3 Ml) 3 ml NEB QIDRT [facility] Last Admin: 10/25/19 10:55 Dose: 3 ml Benzocaine/Menthol (Cepacol Sore Throat) 1 lozenge MUCMEM ASDIRECTED PRN PRN Reason: Cough Benzonatate (Tessalon Perles) 200 mg PO TID [facility] Last Admin: 10/25/19 09:14 Dose: 200 mg Guaifenesin/Codeine Phosphate (Robitussin Ac) 10 ml PO Q4H PRN PRN Reason: Cough Last Admin: 10/25/19 03:46 Dose: 10 ml Hydrochlorothiazide (Hydrochlorothiazide) 25 mg PO DAILY [facility] Last Admin: 10/25/19 09:14 Dose: 25 mg Lactobacillus Rhamnosus (Culturelle) 1 cap PO BID [facility] Last Admin: 10/25/19 09:14 Dose: 1 cap Levothyroxine Sodium (Levothyroxine) 25 mcg PO ACBREAKFAST [facility] Last Admin: 10/25/19 07:05 Dose: 25 mcg Melatonin (Melatonin) 9 mg PO BEDTIME [facility] Last Admin: 10/24/19 20:52 Dose: 9 mg Nicotine (Habitrol) 21 mg TRDERM DAILY [facility] Last Admin: 10/25/19 09:15 Dose: 21 mg Nicotine Polacrilex (Nicorelief) 2 mg CHEW Q1H PRN PRN Reason: Other Ondansetron HCl (Zofran) 4 mg IV Q4H PRN PRN Reason: Nausea/Vomiting Oxycodone HCl (Oxycodone) 5 mg PO Q4H PRN PRN Reason: Pain (moderate 4-6) Last Admin: 10/24/19 14:10 Dose: 5 mg Polyethylene Glycol (Miralax) 17 gm PO DAILY PRN PRN Reason: Constipation Last Admin: 10/25/19 09:16 Dose: 17 gm Sodium Chloride (Saline Flush) 10 ml FLUSH ASDIRECTED PRN PRN Reason: Keep Vein Open Discontinued Medications Acetylcysteine (Mucomyst 20%) 200 mg NEB BIDRT [facility] Last Admin: 10/25/19 07:15 Dose: 200 mg Albuterol (Proventil Neb Soln) 2.5 mg NEB ONETIME ONE Stop: 10/18/19 13:21 Last Admin: 10/18/19 14:02 Dose: 2.5 mg Sodium Chloride (Normal Saline) 1,000 mls @ 999 mls/hr IV ASDIRECTED [facility] Last Admin: 10/18/19 14:39 Dose: 999 mls/hr Sodium Chloride (Normal Saline) 100 mls @ 4 mls/sec IV ASDIRECTED [facility] Stop: 10/18/19 14:31 Last Admin: 10/18/19 14:29 Dose: 4 mls/sec Ceftriaxone Sodium 1 gm/ (Sodium Chloride) 50 mls @ 100 mls/hr IV Q24H [facility] Last Admin: 10/21/19 15:54 Dose: 100 mls/hr Doxycycline Hyclate 100 mg/ (Sodium Chloride) 100 mls @ 100 mls/hr IV Q12H [facility] Last Admin: 10/22/19 06:21 Dose: 100 mls/hr Sodium Chloride (Normal Saline) 1,000 mls @ 125 mls/hr IV ASDIRECTED [facility] Last Admin: 10/19/19 11:56 Dose: 125 mls/hr Sodium Chloride (Normal Saline) 1,000 mls @ 50 mls/hr IV ASDIRECTED [facility] Last Admin: 10/20/19 05:22 Dose: 50 mls/hr Potassium Chloride 20 meq/Lidocaine HCl 2 ml/ Sodium Chloride 112 mls @ 56 mls/ hr IV Q2H [facility] Stop: 10/20/19 13:59 Last Admin: 10/20/19 12:44 Dose: 56 mls/hr Levofloxacin/Dextrose 750 mg/ (Premix) 150 mls @ 100 mls/hr IV Q24H [facility] Last Admin: 10/24/19 11:09 Dose: 100 mls/hr Meropenem 1 gm/ Sodium (Chloride) 50 mls @ 100 mls/hr IV Q8H [facility] Last Admin: 10/25/19 05:38 Dose: 100 mls/hr Lactated Ringer's (Ringers, Lactated) 1,000 mls @ 125 mls/hr IV ASDIRECTED [facility] Stop: 10/24/19 10:02 Iopamidol (Isovue-370 (76%)) 100 ml IV . DIRECTED [facility] Stop: 10/18/19 14:31 Last Admin: 10/18/19 14:28 Dose: 100 ml Lidocaine (Lta 360 Kit Top Soln) Confirm Administered Dose 4 ml .ROUTE .STK-MED ONE Stop: 10/24/19 08:21 Lidocaine HCl (Xylocaine 2% Viscous) Confirm Administered Dose 15 ml .ROUTE .STK -MED ONE Stop: 10/24/19 08:13 Lidocaine HCl (Xylocaine 4% Top Soln) Confirm Administered Dose 50 ml .ROUTE .STK-MED ONE Stop: 10/24/19 08:13 Methylprednisolone Sodium Succinate (Solu-Medrol) 40 mg IVPUSH Q8H [facility] Last Admin: 10/23/19 04:42 Dose: 40 mg Potassium Chloride (Klor-Con M20) 40 meq PO ONETIME ONE Stop: 10/20/19 09:01 Last Admin: 10/20/19 10:30 Dose: 40 meq Potassium Chloride (Klor-Con M20) 40 meq PO ONETIME ONE Stop: 10/20/19 13:01 Last Admin: 10/20/19 12:45 Dose: 40 meq Potassium Chloride (Klor-Con M20) 40 meq PO ONETIME ONE Stop: 10/22/19 09:01 Last Admin: 10/22/19 09:57 Dose: 40 meq Potassium Chloride (Klor-Con M20) 40 meq PO ONETIME ONE Stop: 10/22/19 17:01 Last Admin: 10/22/19 16:01 Dose: 40 meq Prednisone (Prednisone) 40 mg PO DAILY [facility] Last Admin: 10/25/19 09:15 Dose: 40 mg Propofol (Diprivan 20 Ml) Confirm Administered Dose 200 mg .ROUTE .STK-MED ONE Stop: 10/24/19 08:20 Sodium Chloride (Saline Flush) 10 ml FLUSH ONETIME [facility] Last Admin: 10/18/19 14:29 Dose: 10 ml - Exam Quality Assessment: Supplemental Oxygen General: Alert, Oriented, Cooperative, No Acute Distress Lungs: Clear to Auscultation, Normal Respiratory Effort, Decreased Breath Sounds (mild right midlung ) Cardiovascular: Regular Rate, Regular Rhythm GI/Abdominal Exam: Soft, No Distention Extremities: No Pedal Edema Skin: Warm, Dry Psy/Mental Status: Alert, Normal Affect Sepsis Event Note - Evaluation Sepsis Screening Result: No Definite Risk - Focused Exam Vital Signs: Vital Signs Temp Pulse Resp BP Pulse Ox 10/25/19 11:05 35.9 C L 88 20 110/64 97 10/25/19 10:56 81 10/25/19 07:15 78 10/25/19 07:06 35.1 C L 81 20 93/51 L 95 10/25/19 03:00 35.1 C L 79 18 119/62 97 Date Exam was Performed: 10/25/19 Time Exam was Performed: 14:36 - Problem List Review Problem List Initiated/Reviewed/Updated: Yes - My Orders Last 24 Hours: My Active Orders 10/25/19 12:00 levoFLOXacin [Levaquin] 750 mg PO Q24H 10/26/19 09:00 predniSONE 20 mg PO DAILY - Plan Plan:: ASSESSMENT AND PLAN POSTOBSTRUCTIVE PNEUMONIA RIGHT LUNG-little better today but still requiring supplemental oxygen. No fevers. Clinically feeling better. Cultures remain negative. -Prednisone 20 mg p.o. 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 -Follow-up pathology -Outpatient oncology referral HYPOXIC RESPIRATORY FAILURE-underlying COPD, compromised by current pneumonia and right hilar mass. I would anticipate a long-term supplemental oxygen requirement. -Supplemental oxygen as needed -Nebulized albuterol and DuoNebs HEPATIC CIRRHOSIS-previous history of long-term alcohol abuse, has not consumed alcohol over the past 6 years. No decompensation. MAINTENANCE ISSUES -DVT prophylaxis; SCUDs -GI prophylaxis; not indicated -Mendez catheter; not indicated -Nutrition; regular diet -Nicotine dependence; nicotine patch and gum as needed CODE STATUS-FULL CODE DISPOSITION-anticipate [facility] to the [facility] after the hospital stay. Kirk Carnes MD
[2019-10-25] MEDS ORDERED: Levofloxacin 250 MG Tab PO SCH (12:00)
[2019-10-25] MEDS: Melatonin 3 MG Tab PO SCH (20:14)
[2019-10-26] MEDS ORDERED: Bisacodyl 10 MG Supp RECTAL ONE (05:58)
[2019-10-26] MEDS: Albuterol/Ipratropium 3.0-0.5 MG/3 ML Neb Soln NEB SCH (06:59)
[2019-10-26 07:49] VITALS: BP 113/65; PULSE 87
[2019-10-26] MEDS: Levothyroxine 25 MCG Tab PO SCH (07:55)
[2019-10-26] MEDS: Nicotine 21 MG/24 Hr Patch TRDERM SCH (08:01)
[2019-10-26] MEDS: Benzonatate 100 MG Cap PO SCH (08:03)
[2019-10-26] MEDS: Hydrochlorothiazide 25 MG Tab PO SCH (08:03)
[2019-10-26] MEDS: Lactobacillus Rhamnosus GG (Probiotic) Cap PO SCH (08:03)
--- NOTE | 2019-10-26 08:13 | PN ---
DATE OF SERVICE: 10/26/2019 SUBJECTIVE: Astrid's vital signs have been stable, afebrile. She states she thinks her breathing is a little bit better. She will be going to [facility] today. Has no questions or concerns. OBJECTIVE: GENERAL: Astrid Pacheco is a pleasant 59-year-old female, alert and orientated. VITAL SIGNS: TPR at 0345, 97.3; 79; 16; blood pressure 128/65. HEENT: Negative. NECK: Supple. HEART: Regular rate and rhythm. LUNGS: Reveal no changes. Decreased breath sounds, but rhonchi with coughing. EXTREMITIES: Negative. ASSESSMENT: 1. Status post bronchoscopy on 10/24/2019. Surgeon: Reinaldo Winston MD. 2. Post obstructive pneumonia, right lung. 3. Right hilar mass. 4. Hypoxia, respiratory failure. 5. Hepatic cirrhosis. PLAN: Appointment to be made with Oncology at [facility] on 11/02/2019 prior to discharge. The patient will be discharged today to [facility]. Deysi Phillips PA-C /[id number]
[2019-10-26] MEDS ORDERED: predniSONE 20 MG Tab PO SCH (09:00)
--- NOTE | 2019-10-26 09:12 | PCM.DCSUM1 ---
Discharge Summary - Hospital Course Brief History: 59-year-old female with history of stable hepatic cirrhosis, tobacco dependence and emphysema who presented with progressive cough, shortness of breath, weakness and 30 pound weight loss. She was admitted for management of a postobstructive pneumonia of the right lung as well as further evaluation of a right lung mass. Diagnosis: Stroke: No - Discharge Data Discharge Date: 10/26/19 Discharge Disposition: DC/Tfer to SNF 03 Condition: Fair - Referral to Home Health Primary Care Physician: Maisha Aponte DO - Discharge Diagnosis/Problem(s) (1) Malignant neoplasm of unspecified part of right bronchus or lung SNOMED Code(s): 046935394, 574110546 ICD Code: C34.91 - MALIGNANT NEOPLASM OF UNSP PART OF RIGHT BRONCHUS OR LUNG Status: Acute (2) Obstructive pneumonia SNOMED Code(s): 585692314 ICD Code: J18.9 - PNEUMONIA, UNSPECIFIED ORGANISM Status: Acute (3) Acute respiratory failure with hypoxia SNOMED Code(s): 57509330, 037522823 ICD Code: J96.01 - ACUTE RESPIRATORY FAILURE WITH HYPOXIA Status: Acute (4) Cirrhosis of liver SNOMED Code(s): 89087595 ICD Code: K74.60 - UNSPECIFIED CIRRHOSIS OF LIVER Status: Chronic - Patient Summary/Data Operative Procedure(s) Performed: Bronchoscopy was performed by Dr. Winston on Consults: Consultations 10/18/19 16:52 Consult to Physician [CONS] Routine Consulting Provider: eRinaldo Winston Courtesy Call Completed to Consulting Physician: Yes Reason for Consult: Right hilar mass, bronchoscopy 10/23/19 12:13 Consult to Physical Therapy [PT Evaluation and Treatment] [CONS] Routine Please Evaluate and Treat. PT Reason for Consult: Pneumonia, weakness This query below is only for informational purposes and is not editable. Admission Diagnosis/Problem: Pneumonia Labs Pending at D/C: Final results of cytology and biopsies obtained during the bronchoscopy Hospital Course: Astrid presented to the emergency room with progressive cough, shortness of breath and weakness as well as a 30 pound weight loss. She had recently been started on antibiotics for a right lung pneumonia but had been declining despite these antibiotics and steroids. She was seen in the clinic and there was concerned about COVID 19 because of her symptoms. She was sent to the emergency room for further evaluation with her progressive pulmonary symptoms. In the emergency room a CT scan was obtained which showed evidence for a postobstructive pneumonia on the right as well as a moderate sized right hilar mass. This was very concerning for malignancy and appeared to be invading the mediastinum. White blood cell count was elevated at 20,000. She was requiring supplemental oxygen. She was started on ceftriaxone and doxycycline after blood cultures were obtained. She was admitted to the hospital for further management. The test for the coronavirus had been sent from the clinic and she was initially admitted to [facility] emergency department precautions until the test result returned. It was felt to be highly unlikely that she had the virus because she had not traveled and an alternate diagnosis was available. During the early part of the hospital stay we did see an improvement in her white blood cell count initially but then it was stable around 14,000. Symptomatically she did not improve very much over the first 3 days. She remained very short of breath with any activity. She did not have any fevers and her heart rate was okay but she continued to require 3 L of supplemental oxygen. Dr. Winston had been consulted for bronchoscopy but it was felt that she was not quite stable enough to undergo the procedure during the early part of the hospital stay. Her cultures were all negative. On hospital day 4 after she had failed to show significant improvement antibiotics were changed to levofloxacin and meropenem. Her coronavirus test did come back and was negative. The day after this change was made the patient felt significantly better. Her white blood cell count came down to the normal range. She continues to require 3 L of supplemental oxygen but clinically was feeling and looking better. On October 23, 6 days after admission she had a bronchoscopy performed by Dr. Winston. In the right mainstem there was a mass noted with invasion into the bronchus. Cytology was obtained as were biopsies. The patient was a little more short of breath after the procedure but by the next morning was feeling pretty good again. Over the next 24 hours she had additional improvement. She is less short of breath with activity. Supplemental oxygen is down to between 1 and 2 L/min. Strength is slowly improving but she does remain quite weak. Her cytology and pathology results are not available yet but should be in the near future. We did transition her to only oral levofloxacin and she continued to improve after this change. She is interested in subacute rehab and will be discharged to the detention for further care. She has follow-up scheduled with oncology in 1 week's time. - Patient Instructions Diet: Regular Diet as Tolerated Activity: As Tolerated Showering/Bathing: May Shower Notify Provider of: Fever, Increased Pain, Nausea and/or Vomiting Other/Special Instructions: 1. You were in the hospital for management of a right lung pneumonia that we suspect is a postobstructive pneumonia. A CT scan of the chest revealed a mass near the center of the chest on the right side. This is suspicious for a cancer and we have obtained biopsies but these results are pending at the time of discharge. We have scheduled an appointment with the oncology team at [facility] next week to review the results and discuss additional work-up and potential treatment options. 2. Referral to physical and occupational therapy for strengthening after a pneumonia led to generalized weakness. 3. Code status - FULL CODE. 4. Follow up with Dr Lex Bourne as needed after the hospital stay - Discharge Plan *PRESCRIPTION DRUG MONITORING PROGRAM REVIEWED*: Not Applicable *COPY OF PRESCRIPTION DRUG MONITORING REPORT IN PATIENT HUSAM: Not Applicable Prescriptions/Med Rec: Codeine/guaiFENesin [Robitussin AC] 10 ml PO Q4H PRN #236 liquid PRN Reason: Cough Lactobacillus Rhamnosus GG [Culturelle] 1 cap PO BID #30 cap Levofloxacin 750 mg PO ACLUNCH #5 tablet Nicotine [Habitrol] 21 mg TRDERM DAILY #30 patch Nicotine Polacrilex [Nicorelief] 2 mg CHEW Q1H PRN #60 gum PRN Reason: Other oxyCODONE 5 mg PO Q4H PRN #40 tablet PRN Reason: Pain (Moderate 4-6) predniSONE 20 mg PO DAILY #3 tablet Home Medications: Home Meds Multivitamin with Minerals [Antioxidant Vitamin] 1 each PO DAILY 09/12/13 [ History] Vitamin B Complex [B Complex] 1 tab PO DAILY 09/12/13 [History] Levothyroxine 1 tab PO DAILY 08/31/15 [History] hydroCHLOROthiazide [Hydrochlorothiazide] 1 tab PO DAILY 08/31/15 [History] Albuterol [Proventil Neb Soln] 2.5 mg NEB Q4H PRN #60 neb 10/14/19 [Rx] Albuterol/Ipratropium [DuoNeb 3.0-0.5 MG/3 ML] 3 ml NEB Q6H PRN #60 neb [Rx] Codeine/guaiFENesin [Robitussin AC] 10 ml PO Q4H PRN #236 liquid 10/26/19 [Rx] Lactobacillus Rhamnosus GG [Culturelle] 1 cap PO BID #30 cap 10/26/19 [Rx] Levofloxacin 750 mg PO ACLUNCH #5 tablet 10/26/19 [Rx] Nicotine Polacrilex [Nicorelief] 2 mg CHEW Q1H PRN #60 gum 10/26/19 [Rx] Nicotine [Habitrol] 21 mg TRDERM DAILY #30 patch 10/26/19 [Rx] oxyCODONE 5 mg PO Q4H PRN #40 tablet 10/26/19 [Rx] predniSONE 20 mg PO DAILY #3 tablet 10/26/19 [Rx] Oxygen Therapy Mode: Nasal Cannula Oxygen Flow Rate (L/min): 2 Patient Handouts: Coping with Quitting Smoking, Levofloxacin tablets Referrals: La Artis PA-C [Ordering Only Provider] - 11/02/19 9:30 am ( Please arrive 15 minutes rosemarie to register for your appointment.) - Discharge Summary/Plan Comment DC Time >30 min.: Yes (40-new detention discharge) - Patient Data Vitals - Most Recent: Last Vital Signs Temp 35.6 C L 10/26/19 07:00 Pulse 87 10/26/19 07:00 Resp 18 10/26/19 07:00 BP 113/65 10/26/19 07:00 Pulse Ox 96 10/26/19 07:00 Weight - Most Recent: 93.259 kg I&O - Last 24 hours: Intake & Output 10/25/19 10/26/19 10/26/19 22:59 06:59 14:59 Intake Total 680 360 240 Output Total 1700 700 100 Balance -1020 -340 140 ELLI Results - Last 24 hrs: Microbiology 10/24/19 07:55 Gram Stain - Final Bronchial Washings - Lung, Right Respiratory Culture - Final NO GROWTH AFTER 2 DAYS Med Orders - Current: Current Medications Albuterol (Proventil Neb Soln) 2.5 mg NEB Q4H PRN PRN Reason: Wheezing Last Admin: 10/19/19 23:06 Dose: 2.5 mg Albuterol/Ipratropium (Duoneb 3.0-0.5 Mg/3 Ml) 3 ml NEB QIDRT [facility] Last Admin: 10/26/19 06:59 Dose: 3 ml Benzocaine/Menthol (Cepacol Sore Throat) 1 lozenge MUCMEM ASDIRECTED PRN PRN Reason: Cough Benzonatate (Tessalon Perles) 200 mg PO TID [facility] Last Admin: 10/26/19 08:03 Dose: 200 mg Guaifenesin/Codeine Phosphate (Robitussin Ac) 10 ml PO Q4H PRN PRN Reason: Cough Last Admin: 10/25/19 21:56 Dose: 10 ml Hydrochlorothiazide (Hydrochlorothiazide) 25 mg PO DAILY [facility] Last Admin: 10/26/19 08:03 Dose: 25 mg Lactobacillus Rhamnosus (Culturelle) 1 cap PO BID [facility] Last Admin: 10/26/19 08:03 Dose: 1 cap Levofloxacin (Levaquin) 750 mg PO Q24H [facility] Last Admin: 10/25/19 12:23 Dose: 750 mg Levothyroxine Sodium (Levothyroxine) 25 mcg PO ACBREAKFAST [facility] Last Admin: 10/26/19 07:55 Dose: 25 mcg Melatonin (Melatonin) 9 mg PO BEDTIME [facility] Last Admin: 10/25/19 20:14 Dose: 9 mg Nicotine (Habitrol) 21 mg TRDERM DAILY [facility] Last Admin: 10/26/19 08:01 Dose: 21 mg Nicotine Polacrilex (Nicorelief) 2 mg CHEW Q1H PRN PRN Reason: Other Ondansetron HCl (Zofran) 4 mg IV Q4H PRN PRN Reason: Nausea/Vomiting Oxycodone HCl (Oxycodone) 5 mg PO Q4H PRN PRN Reason: Pain (moderate 4-6) Last Admin: 10/24/19 14:10 Dose: 5 mg Polyethylene Glycol (Miralax) 17 gm PO DAILY PRN PRN Reason: Constipation Last Admin: 10/25/19 09:16 Dose: 17 gm Prednisone (Prednisone) 20 mg PO DAILY [facility] Last Admin: 10/26/19 08:03 Dose: 20 mg Sodium Chloride (Saline Flush) 10 ml FLUSH ASDIRECTED PRN PRN Reason: Keep Vein Open Discontinued Medications Acetylcysteine (Mucomyst 20%) 200 mg NEB BIDRT [facility] Last Admin: 10/25/19 07:15 Dose: 200 mg Albuterol (Proventil Neb Soln) 2.5 mg NEB ONETIME ONE Stop: 10/18/19 13:21 Last Admin: 10/18/19 14:02 Dose: 2.5 mg Bisacodyl (Dulcolax) 10 mg RECTAL ONETIME ONE Stop: 10/26/19 05:59 Last Admin: 10/26/19 06:17 Dose: 10 mg Sodium Chloride (Normal Saline) 1,000 mls @ 999 mls/hr IV ASDIRECTED [facility] Last Admin: 10/18/19 14:39 Dose: 999 mls/hr Sodium Chloride (Normal Saline) 100 mls @ 4 mls/sec IV ASDIRECTED [facility] Stop: 10/18/19 14:31 Last Admin: 10/18/19 14:29 Dose: 4 mls/sec Ceftriaxone Sodium 1 gm/ (Sodium Chloride) 50 mls @ 100 mls/hr IV Q24H [facility] Last Admin: 10/21/19 15:54 Dose: 100 mls/hr Doxycycline Hyclate 100 mg/ (Sodium Chloride) 100 mls @ 100 mls/hr IV Q12H [facility] Last Admin: 10/22/19 06:21 Dose: 100 mls/hr Sodium Chloride (Normal Saline) 1,000 mls @ 125 mls/hr IV ASDIRECTED [facility] Last Admin: 10/19/19 11:56 Dose: 125 mls/hr Sodium Chloride (Normal Saline) 1,000 mls @ 50 mls/hr IV ASDIRECTED [facility] Last Admin: 10/20/19 05:22 Dose: 50 mls/hr Potassium Chloride 20 meq/Lidocaine HCl 2 ml/ Sodium Chloride 112 mls @ 56 mls/ hr IV Q2H [facility] Stop: 10/20/19 13:59 Last Admin: 10/20/19 12:44 Dose: 56 mls/hr Levofloxacin/Dextrose 750 mg/ (Premix) 150 mls @ 100 mls/hr IV Q24H [facility] Last Admin: 10/24/19 11:09 Dose: 100 mls/hr Meropenem 1 gm/ Sodium (Chloride) 50 mls @ 100 mls/hr IV Q8H [facility] Last Admin: 10/25/19 05:38 Dose: 100 mls/hr Lactated Ringer's (Ringers, Lactated) 1,000 mls @ 125 mls/hr IV ASDIRECTED [facility] Stop: 10/24/19 10:02 Iopamidol (Isovue-370 (76%)) 100 ml IV . DIRECTED [facility] Stop: 10/18/19 14:31 Last Admin: 10/18/19 14:28 Dose: 100 ml Lidocaine (Lta 360 Kit Top Soln) Confirm Administered Dose 4 ml .ROUTE .STK-MED ONE Stop: 10/24/19 08:21 Lidocaine HCl (Xylocaine 2% Viscous) Confirm Administered Dose 15 ml .ROUTE .STK -MED ONE Stop: 10/24/19 08:13 Lidocaine HCl (Xylocaine 4% Top Soln) Confirm Administered Dose 50 ml .ROUTE .STK-MED ONE Stop: 10/24/19 08:13 Methylprednisolone Sodium Succinate (Solu-Medrol) 40 mg IVPUSH Q8H [facility] Last Admin: 10/23/19 04:42 Dose: 40 mg Potassium Chloride (Klor-Con M20) 40 meq PO ONETIME ONE Stop: 10/20/19 09:01 Last Admin: 10/20/19 10:30 Dose: 40 meq Potassium Chloride (Klor-Con M20) 40 meq PO ONETIME ONE Stop: 10/20/19 13:01 Last Admin: 10/20/19 12:45 Dose: 40 meq Potassium Chloride (Klor-Con M20) 40 meq PO ONETIME ONE Stop: 10/22/19 09:01 Last Admin: 10/22/19 09:57 Dose: 40 meq Potassium Chloride (Klor-Con M20) 40 meq PO ONETIME ONE Stop: 10/22/19 17:01 Last Admin: 10/22/19 16:01 Dose: 40 meq Prednisone (Prednisone) 40 mg PO DAILY [facility] Last Admin: 10/25/19 09:15 Dose: 40 mg Propofol (Diprivan 20 Ml) Confirm Administered Dose 200 mg .ROUTE .STK-MED ONE Stop: 10/24/19 08:20 Sodium Chloride (Saline Flush) 10 ml FLUSH ONETIME [facility] Last Admin: 10/18/19 14:29 Dose: 10 ml *Q Meaningful Use (DIS) - VTE *Q VTE Pharmacological Contraindications *Q: Patient Scheduled Surgery
== END 2019-10-26 09:49 | DRG 180 ==
LOC: JP.ED 12:02 → JP.MS 16:05
PROVIDERS: ADMIT Hospitalist; ATTEND Internal Medicine
DX: J18.8 Other pneumonia, unspecified organism (principal); E86.0 Dehydration; C34.91 Malignant neoplasm of unspecified part of right bronchus or lung; J18.9 Pneumonia, unspecified organism; J96.01 Acute respiratory failure with hypoxia; J44.0 Chronic obstructive pulmonary disease with (acute) lower respiratory infection; K74.60 Unspecified cirrhosis of liver; H54.7 Unspecified visual loss; I10 Essential (primary) hypertension; E03.9 Hypothyroidism, unspecified; Z99.81 Dependence on supplemental oxygen; Z88.6 Allergy status to analgesic agent; Z79.890 Hormone replacement therapy; Z79.899 Other long term (current) drug therapy; Z98.49 Cataract extraction status, unspecified eye
CPT/HCPCS: 36415; 36600; 71046 ×2; 71275 ×2; 80053; 81001; 82803; 84443; 85025; 86140; 87040; 94640; 96360; 99285 ×2; J7030; J7050; Q9967; 80048; 83735; 84132; 85027; 85610; 87015; 87070; 87077; 87102; 87116; 87205; 87206; 87220; 88112; 88305; 94667; 94668; 94762; 97110-GP; 97162-GP; 97530-GP; 97535-GP; A9270-GY; J0696; J1956; J2001; J2185; J2704; J2920; J3480; J3490; J7620-GY; U0001; U0002

== ENCOUNTER 2019-12-09 06:28 | Day surgery (SDC) | payer MEDICARE, OTHER ==
[2019-12-09] MEDS ORDERED: Bupivacaine 0.5% 50 ML MDV ONE (06:34)
[2019-12-09] MEDS ORDERED: Lidocaine 1% with EPINEPHrine 1:100,000 50 ML MDV ONE (06:34)
[2019-12-09] MEDS ORDERED: Sodium Chloride 0.9% 1,000 ML IV SCH (07:00)
[2019-12-09] MEDS ORDERED: Propofol 200 MG/20 ML SDV ONE (07:08)
[2019-12-09] MEDS ORDERED: Midazolam 1 MG/ML 2 ML SDV ONE (07:08)
[2019-12-09] MEDS ORDERED: fentaNYL 100 MCG/2 ML SDV ONE (07:08)
[2019-12-09] MEDS ORDERED: ceFAZolin 1 GM Vial ONE (08:16)
[2019-12-09 09:21] VITALS: PULSE 70
[2019-12-09 10:26] VITALS: BP 118/77
--- NOTE | 2019-12-09 11:20 | CR ---
CHEST: Portable 12/09/2019 at 8:36 AM CLINICAL HISTORY:Port placement COMPARISON:CT 11/04/2019 FINDINGS: The heart is enlarged. There is a irregular density in the right upper lobe. This was seen as cavitary masses on the November CT. Patient has had placement of a left subclavian Mjkyzj-[id number]-Mmis catheter. The tip is in the brachycephalic superior vena caval junction. There is no evidence of pneumothorax. IMPRESSION: Known right upper lobe Mass. Interval placement of a left subclavian [id number]-[id number] catheter described above
--- NOTE | 2019-12-09 15:44 | OR ---
DATE OF PROCEDURE: 12/09/2019 SURGEON: Vu Smith MD PROCEDURE: Left subclavian vein Port-A-Cath placement. COMPLICATIONS: None. UPHOLSTERY REPAIRER: None. PREOPERATIVE DIAGNOSIS: Lung cancer. POSTOPERATIVE DIAGNOSIS: Lung cancer. RISKS: Risks, benefits, alternatives, and limitations including, but not limited to infection, bleeding, and pneumothorax were explained to the patient, who wished to proceed. PROCEDURE IN DETAIL: The patient was placed in supine position. The left subclavian vein was accessed on the first pass using a micropuncture needle kit. This was then exchanged over a wire for a 35,000th wire. Using fluoroscopic guidance, this was then advanced in to the superior vena cava. Under direct fluoroscopic guidance, the dilator was then also introduced. This was then exchanged for the tubing. This was placed in superior vena cava. This was then cut and secured to the port with the black locking device. This was then checked with fluoroscopy multiple times and also during the procedure, the Lilly needle was used to aspirate and inject without abnormality. This was then sutured into place using 3-0 Vicryl in 3 separate spots after a pocket had been created after anesthetizing with lidocaine. The skin was closed with 3-0 Vicryl and 4-0 Vicryl. No abnormalities noted. The patient tolerated the procedure well. Vu Smith MD /[id number]
== END 2019-12-09 10:00 | disposition home or self-care (01) ==
LOC: JP.SDS 06:28
PROVIDERS: ATTEND Surgery
DX: C34.90 Malignant neoplasm of unspecified part of unspecified bronchus or lung (principal); F17.200 Nicotine dependence, unspecified, uncomplicated; I10 Essential (primary) hypertension; Z88.8 Allergy status to other drugs, medicaments and biological substances
CPT/HCPCS: 36561; 71045; C1788; C1894; J0690; J1642; J2250; J2704; J3010; J3490; J7030

== ENCOUNTER 2020-01-31 11:32 | Emergency (ER) | payer MEDICARE, OTHER ==
--- NOTE | 2020-01-31 12:47 | EDM.PDOC ---
<Akila Harrison M - Last Filed: 01/31/20 13:30> ED HPI GENERAL MEDICAL PROBLEM - General Chief Complaint: Fever Stated Complaint: FEVER Time Seen by Provider: 01/31/20 11:57 Source of Information: Reports: Patient, RN, RN Notes Reviewed, Significant Other History Limitations: Reports: No Limitations - History of Present Illness INITIAL COMMENTS - FREE TEXT/NARRATIVE: 59 year old female presents to ER [facility]. 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 4L oxygen home use. Pt is receiving chemo on Tuesdays. Pt states she checks her temperature daily based on immunocompromised state from cancer. Fever this morning at 0930 was 101.0f orally. Pt took 2 Ibuprofen and rechecked shortly after and was 102.7f. Then within 30 minutes checked temperature again and was 102.0f. By the time of ER arrival, temp was 98.0f. VSS. Pt is able to speak in full sentences and provide an accurate history. Respiratory status no distress. O2 sats 98% on 4L oxygen. Additionally, pt indicates "dribbling of urine" with dysuria and frequency started yesterday but denies burning, pain, foul smell, or any pain associated with voiding. L SQ port is not accessed at this time. Denies pain as 0/10. 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 Contraindicted Tylenol use based on LFT's. ) - Related Data Allergies Allergy/AdvReac Type Severity Reaction Status Date / Time acetaminophen [From Tylenol] AdvReac Liver Verified 01/31/20 11:50 Problems Home Meds: Home Meds Multivitamin with Minerals [Antioxidant Vitamin] 1 each PO DAILY 09/12/13 [History] Vitamin B Complex [B Complex] 1 tab PO DAILY 09/12/13 [History] Levothyroxine 50 mcg PO DAILY 08/31/15 [History] hydroCHLOROthiazide [Hydrochlorothiazide] 25 mg PO DAILY 08/31/15 [History] Albuterol [Proventil Neb Soln] 2.5 mg NEB Q4H PRN #60 neb 10/14/19 [Rx] Albuterol/Ipratropium [DuoNeb 3.0-0.5 MG/3 ML] 3 ml NEB Q6H PRN #60 neb 10/14/19 [Rx] Codeine/guaiFENesin [Robitussin AC] 10 ml PO Q4H PRN #236 liquid 10/26/19 [Rx] Nicotine Polacrilex [Nicorelief] 2 mg CHEW Q1H PRN #60 gum 10/26/19 [Rx] Lactulose [Generlac] 15 ml PO DAILY 12/08/19 [History] Potassium Chloride 20 meq PO DAILY 12/08/19 [History] Prochlorperazine Maleate [Compazine] 10 mg PO Q6H PRN 12/08/19 [History] dexAMETHasone [Dexamethasone] 8 mg PO ASDIRECTED 12/08/19 [History] Azithromycin 250 mg PO DAILY #6 tablet 01/31/20 [Rx] Ibuprofen 400 mg PO Q6HR PRN 01/31/20 [History] Past Medical History HEENT History: Reports: Impaired Vision Cardiovascular History: Reports: Hypertension Respiratory History: Reports: COPD, Other (See Below) Other Respiratory History: Recent cough and dyspnea. 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: Musculoskeletal History: Reports: Fracture Other Musculoskeletal History: Fx ankle Neurological History: Reports: None Psychiatric History: Reports: None Endocrine/Metabolic History: Reports: Hypothyroidism Hematologic History: Reports: Blood Transfusion(s) Immunologic History: Reports: Immunosuppression Other Immunologic History: chemo Oncologic (Cancer) History: Reports: Lung Dermatologic History: Reports: None - Infectious Disease History Infectious Disease History: Reports: Chicken Pox - Past Surgical History HEENT Surgical History: Reports: Cataract Surgery, Oral Surgery Respiratory Surgical History: Reports: Lung Biopsies Other Respiratory Surgeries/Procedures: lung radiation 33 treatments GI Surgical History: Reports: EGD Social & Family History - Tobacco Use Smoking Status *Q: Former Smoker Years of Tobacco use: 45 Packs/Tins Daily: 1 Used Tobacco, but Quit: Yes Month/Year Tobacco Last Used: 2019 - Caffeine Use Caffeine Use: Reports: Coffee - Recreational Drug Use Recreational Drug Use: No - Living Situation & Occupation Living situation: Reports: with Spouse (Single dwelling home.) ED ROS GENERAL - Review of Systems Review Of Systems: See Below Constitutional: Reports: Fever HEENT: Reports: No Symptoms Respiratory: Reports: Shortness of Breath, Other (4L home O2 per R lung squamous cell cacner treatment ) Cardiovascular: Reports: No Symptoms, Other (ST 105's. ) Endocrine: Reports: No Symptoms GI/Abdominal: Reports: No Symptoms Musculoskeletal: Reports: No Symptoms Skin: Reports: Pallor Neurological: Reports: No Symptoms Psychiatric: Reports: No Symptoms Hematologic/Lymphatic: Reports: Other (Swuamous cell R lung cancer. LSQ port not accessed. ) Immunologic: Reports: Other (Immunocompromised with chemo on Tuesdays for R squamous lung cancer) ED EXAM, SEPSIS - Physical Exam Exam: See Below Exam Limited By: No Limitations General Appearance: Alert, WD/WN, No Apparent Distress Eye Exam: Bilateral Eye: Normal Inspection, PERRL Ears: Normal External Exam, Hearing Grossly Normal Nose: Normal Inspection, Normal Mucosa, No Blood Throat/Mouth: Normal Inspection, Normal Lips, Normal Teeth, Normal Gums, Normal Voice, Other (4L home oxygen) Head: Normocephalic Neck: Normal Inspection, Supple, Non-Tender, Full Range of Motion Respiratory/Chest: Normal Breath Sounds, No Accessory Muscle Use, Chest Non- Tender, Decreased Breath Sounds (Decreased breath sounds RUL and RML. All other santos clear) Cardiovascular: Normal Peripheral Pulses, Regular Rate, Rhythm, No Edema, No Gallop, No JVD, No Murmur, No Rub Peripheral Pulses: 2+: Radial (L), Radial (R), Dorsalis Pedis (L), Dorsalis Pedis (R) GI/Abdominal Exam: Normal Bowel Sounds, Soft, Non-Tender, No Distention (Female) Exam: Deferred Rectal (Female) Exam: Deferred Back: Normal Inspection, Full Range of Motion Extremities: Normal Inspection, Normal Range of Motion, Non-Tender, No Pedal Edema, Normal Capillary Refill Neurological: Alert, Oriented, CN II-XII Intact, Normal Cognition, No Motor/Sensory Deficits Psychiatric: Normal Affect, Normal Mood Skin: Warm, Dry, Intact, No Rash, Pallor Lymphatic: Bilateral: No Adenopathy Course - Re-Assessments/Exams Free Text/Narrative Re-Assessment/Exam: 01/31/20 12:56 Exam patient Labs ordered for sepsis work up 01/31/20 13:05 Pt neutrophil count good 06/30/20 13:23 UA and chemistry back. Appears WNL. 01/31/20 13:29 CXR dictation reviewed. 01/31/20 13:30 Procalcitonin negative. Departure - Departure Disposition: Home, Self-Care 01 Clinical Impression: Bronchitis - Discharge Information Prescriptions: Azithromycin 250 mg PO DAILY #6 tablet Instructions: Upper Respiratory Infection, Adult, [id number] Referrals: Horacio Bourne MD [Primary Care Provider] - Forms: ED Department Discharge Additional Instructions: Take full course of antibiotics, please followup with your primary care provider in 3-5 days if not better, please call return to the emergency department with worsening of symptoms. Your medications have been faxed to [facility] in [place] Sepsis Event Note (ED) - Evaluation Sepsis Screening Result: Possible Sepsis Risk <OfficerEsequiel - Last Filed: 01/31/20 14:07> ED EXAM, SEPSIS - Physical Exam Text/Narrative:: Agree with physical exam below Course - Vital Signs Last Recorded V/S: Last Vital Signs Temp 97.6 F 01/31/20 13:47 Pulse 91 01/31/20 13:47 Resp 16 01/31/20 13:47 BP 133/86 01/31/20 13:47 Pulse Ox 97 01/31/20 13:47 - Orders/Labs/Meds Orders: Active Orders 24 hr Category Date Time Status CULTURE BLOOD [BC] Urgent Lab 01/31/20 12:40 Received CULTURE BLOOD [BC] Urgent Lab 01/31/20 12:52 Received Blood Culture x2 Reflex Set [OM.PC] Urgent Oth 01/31/20 12:28 Ordered Severe Sepsis Onset Time [OM.PC] Stat Oth 01/31/20 12:28 Ordered Labs: Laboratory Tests 01/31/20 01/31/20 01/31/20 Range/Units 12:28 12:40 12:40 WBC (4.5-11.0) K/uL RBC (3.30-5.50) M/uL Hgb (12.0-15.0) g/dL Hct (36.0-48.0) % MCV (80-98) fL MCH (27-31) pg MCHC (32-36) % Plt Count (150-400) K/uL Neut % (Auto) (36-66) % Lymph % (Auto) (24-44) % [place] % (Auto) (2-6) % Eos % (Auto) (2-4) % Baso % (Auto) (0-1) % Sodium 133 L (140-148) mmol/L Potassium 3.8 (3.6-5.2) mmol/L Chloride 97 L (100-108) mmol/L Carbon Dioxide 26 (21-32) mmol/L Anion Gap 13.8 (5.0-14.0) mmol/L BUN 9 (7-18) mg/dL Creatinine 0.7 (0.6-1.0) mg/dL Est Cr Clr Drug Dosing 66.75 mL/min Estimated GFR (MDRD) > 60 (>60) Glucose 107 H (74-106) mg/dL Lactic Acid 0.9 (0.4-2.0) mmol/L Calcium 9.0 (8.5-10.1) mg/dL Total Bilirubin 0.7 D (0.2-1.0) mg/dL AST 29 D (15-37) U/L ALT 31 D (12-78) U/L Alkaline Phosphatase 115 (46-116) U/L C-Reactive Protein 7.36 H (0.0-0.3) mg/dL Total Protein 7.2 (6.4-8.2) g/dL Albumin 3.5 (3.4-5.0) g/dL Globulin 3.7 H (2.3-3.5) g/dL Albumin/Globulin Ratio 1.0 L (1.2-2.2) Procalcitonin ng/mL Urine Color Yellow (YELLOW) Urine Appearance Clear (CLEAR) Urine pH 7.5 (5.0-8.0) Ur Specific Denio 1.020 (1.008-1.030) Urine Protein Negative (NEGATIVE) mg/dL Urine Glucose (UA) Negative (NEGATIVE) mg/dL Urine Ketones Negative (NEGATIVE) mg/dL Urine Occult Blood Negative (NEGATIVE) Urine Nitrite Negative (NEGATIVE) Urine Bilirubin Negative (NEGATIVE) Urine Urobilinogen 0.2 (0.2-1.0) EU/dL Ur Leukocyte Esterase Negative (NEGATIVE) Urine RBC Not seen (0-5) Urine WBC Not seen (0-5) Ur Epithelial Cells Not seen Amorphous Sediment Not seen Urine Bacteria Not seen Urine Mucus Not seen 06/30/20 06/30/20 Range/Units 12:52 12:52 WBC 6.2 (4.5-11.0) K/uL RBC 4.04 (3.30-5.50) M/uL Hgb 11.4 L (12.0-15.0) g/dL Hct 36.3 (36.0-48.0) % MCV 90 (80-98) fL MCH 28 (27-31) pg MCHC 31 L (32-36) % Plt Count 198 (150-400) K/uL Neut % (Auto) 78 H (36-66) % Lymph % (Auto) 9 L (24-44) % [place] % (Auto) 13 H (2-6) % Eos % (Auto) 0 L (2-4) % Baso % (Auto) 1 (0-1) % Sodium (140-148) mmol/L Potassium (3.6-5.2) mmol/L Chloride (100-108) mmol/L Carbon Dioxide (21-32) mmol/L Anion Gap (5.0-14.0) mmol/L BUN (7-18) mg/dL Creatinine (0.6-1.0) mg/dL Est Cr Clr Drug Dosing mL/min Estimated GFR (MDRD) (>60) Glucose (74-106) mg/dL Lactic Acid (0.4-2.0) mmol/L Calcium (8.5-10.1) mg/dL Total Bilirubin (0.2-1.0) mg/dL AST (15-37) U/L ALT (12-78) U/L Alkaline Phosphatase (46-116) U/L C-Reactive Protein (0.0-0.3) mg/dL Total Protein (6.4-8.2) g/dL Albumin (3.4-5.0) g/dL Globulin (2.3-3.5) g/dL Albumin/Globulin Ratio (1.2-2.2) Procalcitonin 0.17 ng/mL Urine Color (YELLOW) Urine Appearance (CLEAR) Urine pH (5.0-8.0) Ur Specific Denio (1.008-1.030) Urine Protein (NEGATIVE) mg/dL Urine Glucose (UA) (NEGATIVE) mg/dL Urine Ketones (NEGATIVE) mg/dL Urine Occult Blood (NEGATIVE) Urine Nitrite (NEGATIVE) Urine Bilirubin (NEGATIVE) Urine Urobilinogen (0.2-1.0) EU/dL Ur Leukocyte Esterase (NEGATIVE) Urine RBC (0-5) Urine WBC (0-5) Ur Epithelial Cells Amorphous Sediment Urine Bacteria Urine Mucus Departure - Departure Time of Disposition: 14:06 Condition: Fair Sepsis Event Note (ED) - Focused Exam Vital Signs: Vital Signs Temp Pulse Resp BP Pulse Ox 01/31/20 13:47 97.6 F 91 16 133/86 97 01/31/20 12:05 92 18 142/83 H 97 01/31/20 11:49 98 F 105 H 16 136/116 H 96 01/31/20 11:46 98 F 105 H 16 136/116 H 96 - Assessment/Plan Plan: Assessment Acuity = acute Site and laterality = fever complicated patient with known history of lung CA currently on chemotherapy suspicious for underlying bronchitis Etiology = unknown Manifestations = none Location of injury = Home Lab values = CBC, CMP, procalcitonin lactic acid urinalysis all within normal limits chest x-ray possibility of increased fluid in cavity right upper lobe could be infectious per radiology read Plan Because she has had some increased sputum production elected to treat empirically azithromycin Z-Nilton faxed to [facility] in [place], did review her lab work with her as well as chest x-ray results she has good follow-up and can return to the emergency department if needed blood cultures are pending, Esequiel Rodriguez MD was personally available for consultation in the ED. I have reviewed the chart and agree with the documentation as recorded by the STRUCTURAL FITTER Student, including the assessment, treatment plan and disposition. Esequiel Rodriguez MD personally saw and examined the patient. I have reviewed and agree with the STRUCTURAL FITTER Student's findings. This note was dictated using [employer] voice recognition software please call with any questions on syntax or grammar.
--- NOTE | 2020-01-31 13:21 | CR ---
CHEST: 2 view CLINICAL HISTORY:Rule out pneumonia COMPARISON:12/09/2019 FINDINGS: Patient has a known right upper lobe mass in the hilar region with the cavitary mass in the right upper lobe and apex. There is a small air-fluid level in the dependent portion of this cavitary mass. Left lung is clear. Heart size is normal. There is left-sided Boqwjo-[id number] catheter.. IMPRESSION: Known right upper lobe and right hilar mass with cavitation in the apical region. There is now a fluid level in the lower portion of the cavitation. This could be secondary to infection
[2020-01-31 13:48] VITALS: BP 133/86; PULSE 91
== END 2020-01-31 15:00 | disposition home or self-care (01) ==
LOC: JP.ED 11:32
DX: J40 Bronchitis, not specified as acute or chronic (principal); I10 Essential (primary) hypertension; E03.9 Hypothyroidism, unspecified; Z87.891 Personal history of nicotine dependence; Z88.6 Allergy status to analgesic agent; Z79.899 Other long term (current) drug therapy
CPT/HCPCS: 36415; 71046; 80053; 81001; 83605; 84145; 85025; 86140; 87040; 99283; J1642

== ENCOUNTER 2020-03-13 12:41 | Inpatient (IN) | payer MEDICARE, OTHER ==
--- NOTE | 2020-03-13 13:06 | EDM.PDOC ---
ED HPI GENERAL MEDICAL PROBLEM - General Chief Complaint: Respiratory Problem Stated Complaint: SENT FROM CLINIC Time Seen by Provider: 03/13/20 12:55 Source of Information: Reports: Patient, Provider History Limitations: Reports: No Limitations - History of Present Illness INITIAL COMMENTS - FREE TEXT/NARRATIVE: Dr. Lamar (oncology) graciously called ahead from clinic to inform me of pt. Pt. has advanced lung CA. Just finished chemotherapy. Has increasing dyspnea. Cough x 4 weeks. Has known RUL mass. Is on O2 chronically. Today is tachypneic w/ rr 24+. Oncologist is concerned re: PE. and is requesting CT angiogram of chest. w/follow through to abdomen. states pt. had fever yesterday to 102. The pt. states she has had chills today. Duration: Chronic Location: Reports: Chest Quality: Reports: Stabbing Worsens with: Reports: Breathing, Other (cough) Associated Symptoms: Reports: Cough (x 4 weeks), Shortness of Breath. Denies: Fever/Chills, Nausea/Vomiting - Related Data Allergies Allergy/AdvReac Type Severity Reaction Status Date / Time acetaminophen [From Tylenol] AdvReac Liver Verified 01/31/20 11:50 Problems Home Meds: Home Meds Multivitamin with Minerals [Antioxidant Vitamin] 1 each PO DAILY 09/12/13 [History] Vitamin B Complex [B Complex] 1 tab PO DAILY 09/12/13 [History] Levothyroxine 50 mcg PO DAILY 08/31/15 [History] hydroCHLOROthiazide [Hydrochlorothiazide] 25 mg PO DAILY 08/31/15 [History] Albuterol [Proventil Neb Soln] 2.5 mg NEB Q4H PRN #60 neb 10/14/19 [Rx] Albuterol/Ipratropium [DuoNeb 3.0-0.5 MG/3 ML] 3 ml NEB Q6H PRN #60 neb 10/14/19 [Rx] Codeine/guaiFENesin [Robitussin AC] 10 ml PO Q4H PRN #236 liquid 10/26/19 [Rx] Nicotine Polacrilex [Nicorelief] 2 mg CHEW Q1H PRN #60 gum 10/26/19 [Rx] Lactulose [Generlac] 15 ml PO DAILY 12/08/19 [History] Potassium Chloride 40 meq PO BID 12/08/19 [History] Prochlorperazine Maleate [Compazine] 10 mg PO Q6H PRN 12/08/19 [History] dexAMETHasone [Dexamethasone] 8 mg PO ASDIRECTED 12/08/19 [History] Azithromycin 250 mg PO DAILY #6 tablet 01/31/20 [Rx] Ibuprofen 400 mg PO Q6HR PRN 01/31/20 [History] Past Medical History HEENT History: Reports: Impaired Vision Cardiovascular History: Reports: Hypertension Respiratory History: Reports: COPD, Other (See Below) Other Respiratory History: Recent cough and dyspnea. 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: Musculoskeletal History: Reports: Fracture Other Musculoskeletal History: Fx ankle Neurological History: Reports: None Psychiatric History: Reports: None Endocrine/Metabolic History: Reports: Hypothyroidism Hematologic History: Reports: Blood Transfusion(s) Immunologic History: Reports: Immunosuppression Other Immunologic History: chemo Oncologic (Cancer) History: Reports: Lung Dermatologic History: Reports: None - Infectious Disease History Infectious Disease History: Reports: Chicken Pox - Past Surgical History HEENT Surgical History: Reports: Cataract Surgery, Oral Surgery Respiratory Surgical History: Reports: Lung Biopsies Other Respiratory Surgeries/Procedures: lung radiation 33 treatments GI Surgical History: Reports: EGD Social & Family History - Caffeine Use Caffeine Use: Reports: Coffee - Living Situation & Occupation Living situation: Reports: with Spouse (Single dwelling home.) ED ROS GENERAL - Review of Systems Review Of Systems: See Below Constitutional: Reports: Malaise, Weakness. Denies: Fever HEENT: Reports: No Symptoms Respiratory: Reports: Shortness of Breath, Pleuritic Chest Pain, Cough Cardiovascular: Reports: Chest Pain, Dyspnea on Exertion. Denies: Syncope Endocrine: Reports: Fatigue GI/Abdominal: Denies: Abdominal Pain, Nausea, Vomiting Skin: Reports: No Symptoms Neurological: Reports: No Symptoms ED EXAM, GENERAL - Physical Exam Exam: See Below Free Text/Narrative:: Pale-appearing wearing a head wrap due to alopecia Exam Limited By: No Limitations General Appearance: Alert, Anxious, Moderate Distress, Other (Obvious tachypnea) Ears: Normal External Exam Nose: Normal Mucosa Throat/Mouth: Normal Inspection Head: Atraumatic. No: Facial Swelling Neck: Normal Inspection. No: Lymphadenopathy (R), Lymphadenopathy (L) Respiratory/Chest: Respiratory Distress, Decreased Breath Sounds. No: Wheezing, Retractions Cardiovascular: Normal Peripheral Pulses GI/Abdominal: Soft, Non-Tender, No Organomegaly. No: Mass Neurological: Alert, Oriented Skin Exam: Warm, Dry, No Rash. No: Erythema Course - Vital Signs Text/Narrative:: CT chest shows no sign pulmonary embolism. There is a large cavitary mass replacing the right upper lobe. there are mild patchy infiltrates scattered throughout the right lower lobe and could represent pneumonia. abdominal CT shows no evidence of metastatic disease. I discussed w/ Dr. Lamra who recommended pt be admitted on antibiotics. @ 16:10 I discussed w/ Dr. Carnes. Last Recorded V/S: Last Vital Signs Temp 37.1 C 03/13/20 13:10 Pulse 116 H 03/13/20 13:10 Resp 20 03/13/20 13:10 BP 123/60 03/13/20 13:10 Pulse Ox 94 L 03/13/20 13:10 - Orders/Labs/Meds Orders: Active Orders 24 hr Category Date Time Status CORONAVIRUS COVID-19, RACHELLE Stat Lab 03/13/20 16:10 Ordered CULTURE BLOOD [BC] Urgent Lab 03/13/20 16:06 Ordered CULTURE BLOOD [BC] Urgent Lab 03/13/20 16:06 Ordered UA W/MICROSCOPIC [URIN] Urgent Lab 03/13/20 14:01 Ordered Sodium Chloride 0.9% [Normal Saline] 1,000 ml Med 03/13/20 16:07 Active IV .BOLUS Sodium Chloride 0.9% [Normal Saline] 90 ml Med 03/13/20 13:30 Active IV ASDIRECTED cefTRIAXone [Rocephin] 1 gm Med 03/13/20 16:07 Active Sodium Chloride 0.9% [Normal Saline] 50 ml IV ONETIME Blood Culture x2 Reflex Set [OM.PC] Urgent Oth 03/13/20 16:06 Ordered Medication Orders Sodium Chloride (Normal Saline) 90 mls @ 4 mls/sec IV ASDIRECTED PHILIPPE Last Admin: 03/13/20 13:50 Dose: 4 mls/sec Documented by: DECRMIC Sodium Chloride (Normal Saline) 1,000 mls @ 500 mls/hr IV .BOLUS ONE Stop: 03/13/20 18:06 Ceftriaxone Sodium 1 gm/ (Sodium Chloride) 50 mls @ 100 mls/hr IV ONETIME ONE Stop: 03/13/20 16:36 Labs: Laboratory Tests 03/13/20 03/13/20 03/13/20 Range/Units 13:01 13:05 13:05 WBC 1.7 L (4.5-11.0) K/uL RBC 2.95 L (3.30-5.50) M/uL Hgb 8.0 L D (12.0-15.0) g/dL Hct 25.9 L (36.0-48.0) % MCV 88 (80-98) fL MCH 27 (27-31) pg MCHC 31 L (32-36) % Plt Count 153 (150-400) K/uL PT 12.6 H (9.5-12.0) sec INR 1.16 (0.80-1.20) D-Dimer, Quantitative (0.0-400.0) ng/mL Sodium (140-148) mmol/L Potassium (3.6-5.2) mmol/L Chloride (100-108) mmol/L Carbon Dioxide (21-32) mmol/L Anion Gap (5.0-14.0) mmol/L BUN (7-18) mg/dL Creatinine (0.6-1.0) mg/dL Est Cr Clr Drug Dosing mL/min Estimated GFR (MDRD) (>60) Glucose (74-106) mg/dL Lactic Acid (0.4-2.0) mmol/L Calcium (8.5-10.1) mg/dL Total Bilirubin (0.2-1.0) mg/dL AST (15-37) U/L ALT (12-78) U/L Alkaline Phosphatase (46-116) U/L Troponin I < 0.017 (0.000-0.056) ng/mL Total Protein (6.4-8.2) g/dL Albumin (3.4-5.0) g/dL Globulin (2.3-3.5) g/dL Albumin/Globulin Ratio (1.2-2.2) 03/13/20 03/13/20 03/13/20 Range/Units 13:05 13:05 13:05 WBC (4.5-11.0) K/uL RBC (3.30-5.50) M/uL Hgb (12.0-15.0) g/dL Hct (36.0-48.0) % MCV (80-98) fL MCH (27-31) pg MCHC (32-36) % Plt Count (150-400) K/uL PT (9.5-12.0) sec INR (0.80-1.20) D-Dimer, Quantitative 1100 H (0.0-400.0) ng/mL Sodium 128 L (140-148) mmol/L Potassium 3.3 L (3.6-5.2) mmol/L Chloride 92 L (100-108) mmol/L Carbon Dioxide 28 (21-32) mmol/L Anion Gap 11.3 (5.0-14.0) mmol/L BUN 6 L (7-18) mg/dL Creatinine 0.7 (0.6-1.0) mg/dL Est Cr Clr Drug Dosing 65.90 mL/min Estimated GFR (MDRD) > 60 (>60) Glucose 123 H (74-106) mg/dL Lactic Acid 1.8 (0.4-2.0) mmol/L Calcium 8.6 (8.5-10.1) mg/dL Total Bilirubin 0.9 (0.2-1.0) mg/dL AST 41 H (15-37) U/L ALT 45 (12-78) U/L Alkaline Phosphatase 306 H D (46-116) U/L Troponin I (0.000-0.056) ng/mL Total Protein 6.2 L (6.4-8.2) g/dL Albumin 1.9 L (3.4-5.0) g/dL Globulin 4.3 H (2.3-3.5) g/dL Albumin/Globulin Ratio 0.4 L (1.2-2.2) Meds: Medications Generic Name Dose Route Start Last Admin Trade Name Freq PRN Reason Stop Dose Admin Sodium Chloride 90 mls @ 4 mls/sec 03/13/20 13:30 03/13/20 13:50 Normal Saline IV 4 mls/sec ASDIRECTED PHILIPPE Administration Sodium Chloride 1,000 mls @ 500 mls/hr 03/13/20 16:07 Normal Saline IV 03/13/20 18:06 .BOLUS ONE Ceftriaxone Sodium 1 gm/ 50 mls @ 100 mls/hr 03/13/20 16:07 Sodium Chloride IV 03/13/20 16:36 ONETIME ONE Discontinued Medications Generic Name Dose Route Start Last Admin Trade Name Juana PRN Reason Stop Dose Admin Iopamidol 100 ml 03/13/20 13:28 03/13/20 13:51 Isovue-370 (76%) IV 03/13/20 13:29 100 ml . DIRECTED ONE Administration Departure - Departure Time of Disposition: 16:15 Disposition: Admitted As Inpatient 64 Condition: Fair Clinical Impression: Community acquired bacterial pneumonia - Discharge Information Referrals: Horacio Bourne MD [Primary Care Provider] - Forms: ED Department Discharge Sepsis Event Note (ED) - Focused Exam Vital Signs: Vital Signs Temp Pulse Resp BP Pulse Ox 03/13/20 13:10 37.1 C 116 H 20 123/60 94 L 03/13/20 12:53 37.1 C 116 H 17 123/60 94 L - My Orders Last 24 Hours: My Active Orders 03/13/20 13:30 Sodium Chloride 0.9% [Normal Saline] 90 ml IV ASDIRECTED 03/13/20 14:01 UA W/MICROSCOPIC [URIN] Urgent 03/13/20 16:06 CULTURE BLOOD [BC] Urgent CULTURE BLOOD [BC] Urgent Blood Culture x2 Reflex Set [OM.PC] Urgent 03/13/20 16:07 Sodium Chloride 0.9% [Normal Saline] 1,000 ml IV .BOLUS cefTRIAXone [Rocephin] 1 gm Sodium Chloride 0.9% [Normal Saline] 50 ml IV ONETIME 03/13/20 16:10 CORONAVIRUS COVID-19, RACHELLE Stat - Assessment/Plan Last 24 Hours: My Active Orders 03/13/20 13:30 Sodium Chloride 0.9% [Normal Saline] 90 ml IV ASDIRECTED 03/13/20 14:01 UA W/MICROSCOPIC [URIN] Urgent 03/13/20 16:06 CULTURE BLOOD [BC] Urgent CULTURE BLOOD [BC] Urgent Blood Culture x2 Reflex Set [OM.PC] Urgent 03/13/20 16:07 Sodium Chloride 0.9% [Normal Saline] 1,000 ml IV .BOLUS cefTRIAXone [Rocephin] 1 gm Sodium Chloride 0.9% [Normal Saline] 50 ml IV ONETIME 03/13/20 16:10 CORONAVIRUS COVID-19, RACHELLE Stat
[2020-03-13] MEDS ORDERED: Iopamidol 755 Mg/ML 100 ML Bottle IV ONE (13:28)
[2020-03-13] MEDS ORDERED: Sodium Chloride 0.9% 90 ML IV SCH (13:30)
--- NOTE | 2020-03-13 15:24 | CRLCT ---
INDICATION: Chest pain. Advanced lung cancer. Right upper lobe mass. Increasing dyspnea. COMPARISON: None available at this time. TECHNIQUE: CT examination of the chest was performed with the uneventful intravenous administration of 100 cc of Isovue-300 while 3 mm thick axial sections were obtained through the pulmonary arteries. Please note that all CT scans at this facility use dose modulation, iterative reconstruction, and/or weight-based dosing when appropriate to reduce radiation dose to as low as reasonably achievable. FINDINGS: : There is no sign of pulmonary embolism, with normal enhancement and branching of the pulmonary arteries. There is a large cavitary mass replacing the majority of the right upper lobe, measuring 12.4 x 8.3 x 9 7.5 centimeters, with thick, lobular sandoval. The findings are that of a large cavitary mass. This communicates directly with the right mainstem bronchus. There is mild patchy infiltrate scattered throughout the periphery of the right lower lobe and in the lateral aspect of the right middle lobe. The findings are nonspecific, but could represent an early multifocal pneumonia. The left lung also has mild patchy infiltrate located peripherally in the anterior segment of the left upper lobe. The left lower lobe is spared. While nonspecific, these multifocal, peripheral infiltrates do raise the possibility of early COVID-19 infection. There is no sign of mediastinal or hilar mass or adenopathy. There is a left subclavian infusion port with its tip in the left brachiocephalic vein near the junction at the midline, not within the superior vena cava. The heart is top normal in size and there is moderate LAD and mild LCX and RCA coronary calcifications. The heart is otherwise normal in appearance for the patient`s age, as are the aorta and other ascending great vessels. There is no sign of supraclavicular or axillary mass or adenopathy. The liver has a lobular margins, suggestive of cirrhosis. The liver is normal in size at 17.7 centimeters. There is no sign of any hepatic mass. The spleen is mildly enlarged at 12.4 centimeters in length, with no sign of any mass. There is no sign of portosystemic shunting, with no sign of gastric or esophageal varices, recanalization of the umbilical vein, or splenorenal shunting. The visualized pancreas, kidneys, and adrenals are normal in appearance. There is a small hiatal hernia. There is moderate scoliosis of the inferior thoracic spine convex towards the right. There is an old, healed fracture of the right lateral 9th rib. No lytic or blastic lesions are seen to suggest metastatic disease to the bone. IMPRESSION: No sign of pulmonary embolism. Large, cavitary mass essentially replaces the right upper lobe, with thick, lobular sandoval and a large central cavity connecting directly to the right mainstem bronchus, consistent with advanced lung carcinoma. Mild patchy infiltrates scattered throughout the right lower lobe, with lesser involvement of the right middle lobe and left upper lobe. These have a somewhat peripheral distribution and could represent early COVID-19 infection, although this is nonspecific. Heart top normal in size. Nodular appearance of normal sized liver suggesting cirrhosis. Mild splenomegaly. No sign of portosystemic shunting. Small hiatal hernia. Please note that all CT scans at this facility use dose modulation, iterative reconstruction, and/or weight-based dosing when appropriate to reduce radiation dose to as low as reasonably achievable. Dictated by Immanuel Street MD @ Mar 13 2020 3:12PM Signed by Dr. Immanuel Street @ Mar 13 2020 3:23PM
--- NOTE | 2020-03-13 15:35 | CRLCT ---
INDICATION: Advanced lung cancer, right upper lobe mass. COMPARISON: CT of the chest from 02/07/2020 TECHNIQUE: CT examination of the abdomen and pelvis was performed with the uneventful intravenous administration of Isovue 370 as part of the accompanying CT angiogram of the chest, while 3 mm thick axial sections were obtained from the lung bases through the pubic symphysis. Oral contrast was not administered. Please note that all CT scans at this facility use dose modulation, iterative reconstruction, and/or weight-based dosing when appropriate to reduce radiation dose to as low as reasonably achievable. FINDINGS: In the abdomen, the liver is again seen to have a mildly nodular contour consistent with cirrhosis, with normal size at 17.2 centimeters and no sign of any mass. The spleen is again seen to be mildly enlarged, measuring 12.2 centimeters in length. The entire spleen was not included on the previous study so direct measurement comparison cannot be performed. There is no sign of portosystemic shunting, with no sign esophageal or gastric varices, recanalization of the umbilical vein, or splenorenal shunting. Pancreas and adrenals are normal in appearance. The kidneys are normal in appearance. The gallbladder is normal in appearance. The abdominal aorta is normal in caliber with no sign of dilatation. There is no sign of retroperitoneal mass or adenopathy. There is a new small hiatal hernia. The rest of the stomach, loops of small bowel, and colon in the abdomen are otherwise normal in appearance. In the pelvis, the appendix is normal in appearance with no sign of inflammatory process. The loops of small bowel and colon in the pelvis are normal in appearance. The uterus and adnexal regions are normal in appearance. The urinary bladder is normal in appearance. There is no sign of pelvic or inguinal mass or adenopathy. There is no sign of free air or free fluid in the abdomen or pelvis. The lower lungs are discussed on the accompanying CT angiogram of the chest. There is mild scoliosis of the lumbar spine convex towards the left. There is prominent disc degenerative disease at L4-5, more prominent on the left, related to the levoscoliosis. There is no sign of any lytic or blastic lesion to suggest metastatic disease to the bone. IMPRESSION: CT of the abdomen shows no change in nodular hepatic surface consistent with cirrhosis. Normal hepatic size and no sign of any hepatic mass. No change in mild splenomegaly with no sign of portosystemic shunting. Normal CT of the pelvis with contrast. No evidence of metastatic disease to the abdomen or pelvis. Please note that all CT scans at this facility use dose modulation, iterative reconstruction, and/or weight-based dosing when appropriate to reduce radiation dose to as low as reasonably achievable. Dictated by Immanuel Street MD @ Mar 13 2020 3:12PM Signed by Dr. Immanuel Street @ Mar 13 2020 3:33PM
[2020-03-13] MEDS ORDERED: Sodium Chloride 0.9% 1,000 ML IV ONE (16:07)
[2020-03-13] MEDS ORDERED: cefTRIAXone 1 GM in Sodium Chloride 0.9% 50 ML IV ONE (16:07)
--- NOTE | 2020-03-13 17:28 | PCM.HP.2 ---
H&P History of Present Illness - General Date of Service: 03/13/20 Admit Problem/Dx: Admission Diagnosis/Problem Admission Diagnosis/Problem Pneumonia Source of Information: Patient, Family, Provider History Limitations: Reports: No Limitations - History of Present Illness Initial Comments - Free Text/Narative: CC: I've been coughing HPI: Astrid presents to the emergency room today from the oncology clinic. She was therefore scheduled follow-up but was referred to the emergency room with progressive shortness of breath and tachycardia. She reports that over the past 2 weeks she has had an increasing cough which is sometimes productive for clear to yellow sputum. She had a fever greater than 102 yesterday but is not aware of any other fevers. She has had increasing difficulty with pain in the right upper chest. She describes a sharp pain that can be severe at times. Coughing and some movements seem to make the pain worse. Ibuprofen and oxycodone seem to help the pain some but not consistently. Pain has steadily been getting worse. Her appetite was not great at baseline but has been decreased over the past several days and especially the last 24 hours. Her strength is decreasing. Her energy is decreasing. She is becoming more short of breath, especially with activity. She has orthopnea as well as increased coughing when she tries to lay down. Mild diarrhea the past 2 days but no significant abdominal pain or nausea. Her last chemotherapy was last week. She is not aware of any obvious sick contacts. Work-up in the emergency room revealed pancytopenia from chemotherapy. A CT scan of the chest revealed a large cavitary lesion in the right upper chest that has nearly doubled in size over the past month raising concern that her lung can cer is progressing fairly quickly. There are bilateral infiltrates also noted concerning for an atypical appearing pneumonia. She is tachypneic and was initially tachycardic suggesting sepsis from the pneumonia. Lactic acid was normal. She has received broad-spectrum antibiotics and cultures have been obtained. She is going to be admitted for further management. - Related Data Allergies/Adverse Reactions: Allergies Allergy/AdvReac Type Severity Reaction Status Date / Time acetaminophen [From Tylenol] AdvReac Liver Verified 01/31/20 11:50 Problems Home Medications: Home Meds Multivitamin with Minerals [Antioxidant Vitamin] 1 each PO DAILY 09/12/13 [History] Vitamin B Complex [B Complex] 1 tab PO DAILY 09/12/13 [History] Levothyroxine 50 mcg PO DAILY 08/31/15 [History] hydroCHLOROthiazide [Hydrochlorothiazide] 25 mg PO DAILY 08/31/15 [History] Albuterol [Proventil Neb Soln] 2.5 mg NEB Q4H PRN #60 neb 10/14/19 [Rx] Albuterol/Ipratropium [DuoNeb 3.0-0.5 MG/3 ML] 3 ml NEB Q6H PRN #60 neb 10/14/19 [Rx] Codeine/guaiFENesin [Robitussin AC] 10 ml PO Q4H PRN #236 liquid 10/26/19 [Rx] Nicotine Polacrilex [Nicorelief] 2 mg CHEW Q1H PRN #60 gum 10/26/19 [Rx] Lactulose [Generlac] 15 ml PO DAILY 12/08/19 [History] Potassium Chloride 40 meq PO BID 12/08/19 [History] Prochlorperazine Maleate [Compazine] 10 mg PO Q6H PRN 12/08/19 [History] dexAMETHasone [Dexamethasone] 8 mg PO ASDIRECTED 12/08/19 [History] Azithromycin 250 mg PO DAILY #6 tablet 01/31/20 [Rx] Ibuprofen 400 mg PO Q6HR PRN 01/31/20 [History] Past Medical History HEENT History: Reports: Impaired Vision Cardiovascular History: Reports: Hypertension Respiratory History: Reports: COPD, Other (See Below) Other Respiratory History: Recent cough and dyspnea. lung cancer Gastrointestinal History: Reports: Cirrhosis [employer] History: Reports: Musculoskeletal History: Reports: Fracture Other Musculoskeletal History: Fx ankle Neurological History: Reports: None Psychiatric History: Reports: None Endocrine/Metabolic History: Reports: Hypothyroidism Hematologic History: Reports: Blood Transfusion(s) Immunologic History: Reports: Immunosuppression Other Immunologic History: chemo Oncologic (Cancer) History: Reports: Lung Dermatologic History: Reports: None - Infectious Disease History Infectious Disease History: Reports: Chicken Pox - Past Surgical History HEENT Surgical History: Reports: Cataract Surgery, Oral Surgery Respiratory Surgical History: Reports: Lung Biopsies Other Respiratory Surgeries/Procedures: lung radiation 33 treatments GI Surgical History: Reports: EGD Social & Family History - Family History Cardiac: Denies: CAD - Tobacco Use Smoking Status *Q: Former Smoker Used Tobacco, but Quit: Yes Month/Year Tobacco Last Used: october, - Caffeine Use Caffeine Use: Reports: Coffee - Recreational Drug Use Recreational Drug Use: No - Living Situation & Occupation Living situation: Reports: with Spouse (Single dwelling home.) H&P Review of Systems - Review of Systems: Review Of Systems: See Below Free Text/Narrative: A complete 12 point review of systems was obtained. Pertinent positives and negatives are noted in the history of present illness. All other systems were reviewed and were negative except as noted. Exam - Exam Exam: See Below - Vital Signs Vital Signs: Last Vital Signs Temp 37.1 C 03/13/20 13:10 Pulse 88 03/13/20 16:01 Resp 20 03/13/20 13:10 BP 110/58 L 03/13/20 16:01 Pulse Ox 94 L 03/13/20 13:10 Weight: 79.379 kg - Exam Quality Assessment: Supplemental Oxygen General: Alert, Oriented, Cooperative, Mild Distress (increased work of breathing ) HEENT: Conjunctiva Clear. No: Mucosa Moist & [place] (dry), Scleral Icterus Neck: Supple, Trachea Midline. No: Lymphadenopathy Lungs: Crackles (right middle and upper lung santos ). No: Normal Respiratory E ffort (increased work of breathing ), Wheezing Cardiovascular: Regular Rate, Regular Rhythm. No: Systolic Murmur GI/Abdominal Exam: Normal Bowel Sounds, Soft, Non-Tender, No Distention Back Exam: Normal Inspection, Full Range of Motion Extremities: No Pedal Edema. No: Joint Swelling, Increased Warmth Peripheral Pulses: 2+: Dorsalis Pedis (L), Dorsalis Pedis (R) Skin: Warm, Dry Neuro Extensive - Mental Status: Alert, Oriented x3, Nl Response to Commands Neuro Extensive - Motor, Sensory, Reflexes: No: Dysarthria, Abnormal Motor, Tremor Psychiatric: Alert, Normal Affect - Patient Data Lab Results Last 24 hrs: Laboratory Results - last 24 hr 03/13/20 03/13/20 03/13/20 Range/Units 13:01 13:05 13:05 WBC 1.7 L (4.5-11.0) K/uL RBC 2.95 L (3.30-5.50) M/uL Hgb 8.0 L D (12.0-15.0) g/dL Hct 25.9 L (36.0-48.0) % MCV 88 (80-98) fL MCH 27 (27-31) pg MCHC 31 L (32-36) % Plt Count 153 (150-400) K/uL PT 12.6 H (9.5-12.0) sec INR 1.16 (0.80-1.20) D-Dimer, Quantitative (0.0-400.0) ng/mL Sodium (140-148) mmol/L Potassium (3.6-5.2) mmol/L Chloride (100-108) mmol/L Carbon Dioxide (21-32) mmol/L Anion Gap (5.0-14.0) mmol/L BUN (7-18) mg/dL Creatinine (0.6-1.0) mg/dL Est Cr Clr Drug Dosing mL/min Estimated GFR (MDRD) (>60) Glucose (74-106) mg/dL Lactic Acid (0.4-2.0) mmol/L Calcium (8.5-10.1) mg/dL Total Bilirubin (0.2-1.0) mg/dL AST (15-37) U/L ALT (12-78) U/L Alkaline Phosphatase (46-116) U/L Troponin I < 0.017 (0.000-0.056) ng/mL Total Protein (6.4-8.2) g/dL Albumin (3.4-5.0) g/dL Globulin (2.3-3.5) g/dL Albumin/Globulin Ratio (1.2-2.2) SARS Virus RNA (PCR) (NEGATIVE) 03/13/20 03/13/20 03/13/20 Range/Units 13:05 13:05 13:05 WBC (4.5-11.0) K/uL RBC (3.30-5.50) M/uL Hgb (12.0-15.0) g/dL Hct (36.0-48.0) % MCV (80-98) fL MCH (27-31) pg MCHC (32-36) % Plt Count (150-400) K/uL PT (9.5-12.0) sec INR (0.80-1.20) D-Dimer, Quantitative 1100 H (0.0-400.0) ng/mL Sodium 128 L (140-148) mmol/L Potassium 3.3 L (3.6-5.2) mmol/L Chloride 92 L (100-108) mmol/L Carbon Dioxide 28 (21-32) mmol/L Anion Gap 11.3 (5.0-14.0) mmol/L BUN 6 L (7-18) mg/dL Creatinine 0.7 (0.6-1.0) mg/dL Est Cr Clr Drug Dosing 65.90 mL/min Estimated GFR (MDRD) > 60 (>60) Glucose 123 H (74-106) mg/dL Lactic Acid 1.8 (0.4-2.0) mmol/L Calcium 8.6 (8.5-10.1) mg/dL Total Bilirubin 0.9 (0.2-1.0) mg/dL AST 41 H (15-37) U/L ALT 45 (12-78) U/L Alkaline Phosphatase 306 H D (46-116) U/L Troponin I (0.000-0.056) ng/mL Total Protein 6.2 L (6.4-8.2) g/dL Albumin 1.9 L (3.4-5.0) g/dL Globulin 4.3 H (2.3-3.5) g/dL Albumin/Globulin Ratio 0.4 L (1.2-2.2) SARS Virus RNA (PCR) (NEGATIVE) 03/13/20 Range/Units 16:24 WBC (4.5-11.0) K/uL RBC (3.30-5.50) M/uL Hgb (12.0-15.0) g/dL Hct (36.0-48.0) % MCV (80-98) fL MCH (27-31) pg MCHC (32-36) % Plt Count (150-400) K/uL PT (9.5-12.0) sec INR (0.80-1.20) D-Dimer, Quantitative (0.0-400.0) ng/mL Sodium (140-148) mmol/L Potassium (3.6-5.2) mmol/L Chloride (100-108) mmol/L Carbon Dioxide (21-32) mmol/L Anion Gap (5.0-14.0) mmol/L BUN (7-18) mg/dL Creatinine (0.6-1.0) mg/dL Est Cr Clr Drug Dosing mL/min Estimated GFR (MDRD) (>60) Glucose (74-106) mg/dL Lactic Acid (0.4-2.0) mmol/L Calcium (8.5-10.1) mg/dL Total Bilirubin (0.2-1.0) mg/dL AST (15-37) U/L ALT (12-78) U/L Alkaline Phosphatase (46-116) U/L Troponin I (0.000-0.056) ng/mL Total Protein (6.4-8.2) g/dL Albumin (3.4-5.0) g/dL Globulin (2.3-3.5) g/dL Albumin/Globulin Ratio (1.2-2.2) SARS Virus RNA (PCR) Negative (NEGATIVE) Result Diagrams: 03/13/20 13:05 03/13/20 13:05 Imaging Impressions Last 24 hrs: CT chest angio-images personally reviewed-there are scattered infiltrates in both right lower lobe and on the left side of the chest. These appear to be consistent with an atypical pneumonia. There is also a very large cavitary mass in the right upper lung that is nearly 12 cm in diameter. This cavitary mass communicates with the right mainstem bronchus. This appears to be consistent with a rapid expansion of her right lung cancer over the past month. CT scan of the abdomen and pelvis-images personally reviewed-stable cirrhosis a nd mild splenomegaly but no acute findings. Sepsis Event Note - Evaluation Sepsis Screening Result: Possible Sepsis Risk Current Stage of Sepsis: Sepsis Possible Source of Sepsis: Pulmonary - Focused Exam Sepsis Event Note Statement: Focused Sepsis Exam Completed Vital Signs: Vital Signs Temp Pulse Resp BP Pulse Ox 03/13/20 16:01 88 110/58 L 03/13/20 13:17 105 H 97/56 L 03/13/20 13:10 37.1 C 116 H 20 123/60 94 L 03/13/20 12:53 37.1 C 116 H 17 123/60 94 L Respiratory Effort Without Exertion: Labored Heart Sounds: Other (see below) (Tachycardic) Capillary Refill, Detail: Less than/Equal to (</=) 2 Seconds Pulse Description: 2+ Normal Peripheral Pulse Location: Dorsalis Pedis Skin Exam (Focused Sepsis): Normal Turgor *Q Meaningful Use (ADM) - VTE Risk Assess *Q Each Risk Factor Represents 1 Point: Obesity ( BMI > 25 kg/m2), Sepsis, Serious lung disease including pneumonia, Abnormal Pulmonary Function (COPD) Total Score 1 Point Risk Factors: 4 Each Risk Factor Represents 2 Points: Age 60 - 74 Years, Malignancy (present or previous) Total Score 2 Point Risk Factors: 4 Each Risk Factor Represents 3 Points: None Total Score 3 Point Risk Factors: 0 Each Risk Factor Represents 5 Points: None Total Score 5 Point Risk Factors: 0 Venous Thromboembolism Risk Factor Score *Q: 8 - Problem List (1) Community acquired pneumonia SNOMED Code(s): 154737949 ICD Code: J18.9 - PNEUMONIA, UNSPECIFIED ORGANISM Status: Acute Current Visit: Yes Qualifiers: Laterality: unspecified laterality Qualified Code(s): J18.9 - Pneumonia, unspecified organism (2) Hypokalemia SNOMED Code(s): 27865007 ICD Code: E87.6 - HYPOKALEMIA Status: Acute Current Visit: Yes (3) Malignant neoplasm of unspecified part of right bronchus or lung SNOMED Code(s): 295471659, 278845504 ICD Code: C34.91 - MALIGNANT NEOPLASM OF UNSP PART OF RIGHT BRONCHUS OR LUNG Status: Chronic Current Visit: No (4) Cirrhosis of liver SNOMED Code(s): 10682250 ICD Code: K74.60 - UNSPECIFIED CIRRHOSIS OF LIVER Status: Chronic Current Visit: No Problem List Initiated/Reviewed/Updated: Yes Orders Last 24hrs: Active Orders 24 hr Category Date Time Status Patient Status Manage Transfer [TRANSFER] Routine ADT 03/13/20 17:19 Ordered CULTURE BLOOD [BC] Urgent Lab 03/13/20 16:08 Received CULTURE BLOOD [BC] Urgent Lab 03/13/20 16:18 Received UA W/MICROSCOPIC [URIN] Urgent Lab 03/13/20 14:01 Ordered Sodium Chloride 0.9% [Normal Saline] 1,000 ml Med 03/13/20 16:07 Active IV .BOLUS Sodium Chloride 0.9% [Normal Saline] 90 ml Med 03/13/20 13:30 Active IV ASDIRECTED Blood Culture x2 Reflex Set [OM.PC] Urgent Oth 03/13/20 16:06 Ordered Resuscitation Status Routine Resus Stat 03/13/20 17:21 Ordered Medication Orders Sodium Chloride (Normal Saline) 90 mls @ 4 mls/sec IV ASDIRECTED PHILIPPE Last Admin: 03/13/20 13:50 Dose: 4 mls/sec Documented by: PRICILLA Sodium Chloride (Normal Saline) 1,000 mls @ 500 mls/hr IV .BOLUS ONE Stop: 03/13/20 18:06 Last Admin: 03/13/20 16:30 Dose: 500 mls/hr Documented by: LISSA Assessment/Plan Comment:: ASSESSMENT AND PLAN - Bilateral pneumonia-complicated by sepsis with tachypnea, tachycardia and hypoxic respiratory failure. PNA noted on CT scan during work-up for cough and shortness of breath. No evidence for pulmonary embolism. Patchy bilateral infiltrates. COVID19 testing was negative. She is immunosuppressed with recent chemotherapy. She has received ceftriaxone and cultures have been obtained. -Antibiotic coverage with ceftriaxone and levofloxacin -Supplement oxygen as needed -Sputum culture if able -IV fluids tonight with some dehydration present -Follow-up blood cultures Large right lung squamous cell cancer-large cavitary mass which has nearly doubled in size over the past month. The case has been discussed with her oncologist. The findings were reviewed with and and her . I believe this represents a very poor prognosis with a rapid increase in size and increasing symptoms. At this time the patient wishes to remain full code but is going to contemplate a transition to DO NOT RESUSCITATE after further discuss ion with her family. She does have pancytopenia from recent chemotherapy. -Outpatient follow-up with oncology -Repeat CBC in the morning Hypokalemia-mild at this time. Plan to replace with oral supplementation. Cirrhosis-chronic, stable. History of hepatic encephalopathy but no evidence at this time. I am going to hold her lactulose for now because she had diarrhea over the past couple of days Maintenance issues - - DVT prophylaxis -enoxaparin - GI prophylaxis -not indicated - Nutrition -regular diet - Mendez catheter -not indicated CODE STATUS -full code at this time Admission justification -this patient will be admitted for inpatient services and is medically appropriate meeting medical necessity for inpatient admission as outlined in my documentation. I reasonably expect the patient will require inpatient services that span a period time over 2 midnights. I reasonably expect this patient to be discharged or transferred within 96 hours [facility]. Disposition -I would anticipate discharge home after the hospital stay Primary care physician -Dr Tayla Carnes M.D. - Mortality Measure Prognosis:: Poor
[2020-03-13] MEDS ORDERED: Magnesium Hydroxide 400 MG/5 ML Susp 30 ML Cup PO PRN (19:07)
[2020-03-13] MEDS ORDERED: Ondansetron 4 MG Tab.DIS PO PRN (19:07)
[2020-03-13] MEDS ORDERED: Morphine 2 MG/ML SYRINGE IVPUSH PRN (19:07)
[2020-03-13] MEDS ORDERED: LORazepam 2 MG/ML SDV IVPUSH PRN (19:07)
[2020-03-13] MEDS ORDERED: Ondansetron 4 MG/2 ML SDV IV PRN (19:07)
[2020-03-13] MEDS ORDERED: Albuterol 0.083% 2.5 MG/3 ML Neb Soln NEB PRN (19:07)
[2020-03-13] MEDS ORDERED: Melatonin 3 MG Tab PO PRN (19:07)
[2020-03-13] MEDS: Codeine/guaiFENesin 100mg-10 MG/5 ML Syrup 10 ML Cup PO PRN (19:39)
[2020-03-13] MEDS: Levofloxacin/Dextrose 5%-Water 750 MG in Premix Bag 1 BAG IV SCH (19:43)
[2020-03-13] MEDS: Sodium Chloride 0.9% 1,000 ML IV SCH (19:52)
[2020-03-13] MEDS: Lactobacillus Rhamnosus GG (Probiotic) Cap PO SCH (21:58)
[2020-03-13] MEDS: Albuterol/Ipratropium 3.0-0.5 MG/3 ML Neb Soln NEB SCH (21:58)
[2020-03-13] MEDS: Potassium Chloride 20 MEQ Tab.ER PO SCH (21:58)
[2020-03-13] MEDS: Ibuprofen 600 MG Tab PO PRN (22:16)
[2020-03-14] MEDS: Codeine/guaiFENesin 100mg-10 MG/5 ML Syrup 10 ML Cup PO PRN ×4 (02:16→22:35)
[2020-03-14] MEDS: Sodium Chloride 0.9% 1,000 ML IV SCH (07:11)
[2020-03-14] MEDS: Albuterol/Ipratropium 3.0-0.5 MG/3 ML Neb Soln NEB SCH ×4 (07:25→22:25)
[2020-03-14] MEDS: Lactobacillus Rhamnosus GG (Probiotic) Cap PO SCH ×2 (09:10→22:26)
[2020-03-14] MEDS: Levothyroxine 50 MCG Tab PO SCH (09:10)
[2020-03-14] MEDS: Potassium Chloride 20 MEQ Tab.ER PO SCH ×2 (09:10→22:26)
[2020-03-14] MEDS: Magnesium Sulfate/Water 2 GM in Premix Bag 1 BAG IV SCH ×3 (09:11→22:27)
[2020-03-14] MEDS: Enoxaparin 40 MG/0.4 ML Syringe SUBCUT SCH (09:11)
[2020-03-14] MEDS: Benzonatate 100 MG Cap PO PRN (10:41)
[2020-03-14] MEDS: Ibuprofen 600 MG Tab PO PRN (10:41)
--- NOTE | 2020-03-14 14:11 | PCM.PN ---
- General Info Date of Service: 03/14/20 Subjective Update: No acute events overnight. Pain has been fairly well controlled. She has had several fevers including 1 this afternoon. She gets short of breath and tachycardic with activity. It takes her many minutes for breathing and heart rate to improve after resting. Hemoglobin was less than 7 this morning but we were unable to provide a blood transfusion today because of antibodies. Her oncologist came and talked to her today and unfortunately said that there is no additional treatment available from them because of the rapid progression of her lung cancer and they did recommend comfort care. Astrid was agreeable to a transition to a DO NOT RESUSCITATE order. She was interested in talking to the hospice folks about their services. Functional Status: Reports: Pain Controlled, Tolerating Diet - Review of Systems General: Reports: Fever, Weakness Pulmonary: Reports: Shortness of Breath, Cough - Patient Data Vitals - Most Recent: Last Vital Signs Temp 37.7 C 03/14/20 11:41 Pulse 114 H 03/14/20 10:51 Resp 18 03/14/20 10:20 BP 124/64 03/14/20 10:20 Pulse Ox 96 03/14/20 10:20 Weight - Most Recent: 82.917 kg I&O - Last 24 Hours: Intake & Output 03/13/20 03/14/20 03/14/20 22:59 06:59 14:59 Intake Total 770 1141 650 Output Total 600 800 300 Balance 170 341 350 Lab Results Last 24 Hours: Laboratory Results - last 24 hr 03/13/20 03/13/20 03/14/20 Range/Units 16:24 21:58 05:30 WBC 1.4 L (4.5-11.0) K/uL RBC 2.58 L (3.30-5.50) M/uL Hgb 6.9 L* (12.0-15.0) g/dL Hct 23.0 L (36.0-48.0) % MCV 89 (80-98) fL MCH 27 (27-31) pg MCHC 30 L (32-36) % Plt Count 122 L (150-400) K/uL Add Manual Diff Yes Neutrophils % (Manual) 58 (36-66) % Band Neutrophils % 6 (5-11) % Lymphocytes % (Manual) 10 L (24-44) % Monocytes % (Manual) 26 H (2-6) % Sodium (140-148) mmol/L Potassium (3.6-5.2) mmol/L Chloride (100-108) mmol/L Carbon Dioxide (21-32) mmol/L Anion Gap (5.0-14.0) mmol/L BUN (7-18) mg/dL Creatinine (0.6-1.0) mg/dL Est Cr Clr Drug Dosing mL/min Estimated GFR (MDRD) (>60) Glucose (74-106) mg/dL Calcium (8.5-10.1) mg/dL Magnesium (1.8-2.4) mg/dL Urine Color Yellow (YELLOW) Urine Appearance Clear (CLEAR) Urine pH 7.5 (5.0-8.0) Ur Specific [place] 1.020 (1.008-1.030) Urine Protein Negative (NEGATIVE) mg/dL Urine Glucose (UA) Negative (NEGATIVE) mg/dL Urine Ketones Negative (NEGATIVE) mg/dL Urine Occult Blood Negative (NEGATIVE) Urine Nitrite Negative (NEGATIVE) Urine Bilirubin Negative (NEGATIVE) Urine Urobilinogen 2.0 H (0.2-1.0) EU/dL Ur Leukocyte Esterase Negative (NEGATIVE) Urine RBC 0-5 (0-5) Urine WBC 0-5 (0-5) Ur Epithelial Cells Rare Amorphous Sediment Not seen Urine Bacteria Not seen Urine Mucus Not seen SARS Virus RNA (PCR) Negative (NEGATIVE) Blood Type Gel Antibody Screen Crossmatch 03/14/20 03/14/20 Range/Units 05:30 05:30 WBC (4.5-11.0) K/uL RBC (3.30-5.50) M/uL Hgb (12.0-15.0) g/dL Hct (36.0-48.0) % MCV (80-98) fL MCH (27-31) pg MCHC (32-36) % Plt Count (150-400) K/uL Add Manual Diff Neutrophils % (Manual) (36-66) % Band Neutrophils % (5-11) % Lymphocytes % (Manual) (24-44) % Monocytes % (Manual) (2-6) % Sodium 134 L (140-148) mmol/L Potassium 3.6 (3.6-5.2) mmol/L Chloride 99 L (100-108) mmol/L Carbon Dioxide 28 (21-32) mmol/L Anion Gap 10.6 (5.0-14.0) mmol/L BUN 3 L (7-18) mg/dL Creatinine 0.6 (0.6-1.0) mg/dL Est Cr Clr Drug Dosing 76.89 mL/min Estimated GFR (MDRD) > 60 (>60) Glucose 91 (74-106) mg/dL Calcium 8.2 L (8.5-10.1) mg/dL Magnesium 1.4 L D (1.8-2.4) mg/dL Urine Color (YELLOW) Urine Appearance (CLEAR) Urine pH (5.0-8.0) Ur Specific [place] (1.008-1.030) Urine Protein (NEGATIVE) mg/dL Urine Glucose (UA) (NEGATIVE) mg/dL Urine Ketones (NEGATIVE) mg/dL Urine Occult Blood (NEGATIVE) Urine Nitrite (NEGATIVE) Urine Bilirubin (NEGATIVE) Urine Urobilinogen (0.2-1.0) EU/dL Ur Leukocyte Esterase (NEGATIVE) Urine RBC (0-5) Urine WBC (0-5) Ur Epithelial Cells Amorphous Sediment Urine Bacteria Urine Mucus SARS Virus RNA (PCR) (NEGATIVE) Blood Type O POSITIVE Gel Antibody Screen Positive A* Crossmatch See Detail Med Orders - Current: Current Medications Albuterol (Proventil Neb Soln) 2.5 mg NEB Q4H PRN PRN Reason: Wheezing Albuterol/Ipratropium (Duoneb 3.0-0.5 Mg/3 Ml) 3 ml NEB QIDRT [facility] Last Admin: 03/14/20 10:45 Dose: 3 ml Documented by: Benzonatate (Tessalon Perles) 100 mg PO TID PRN PRN Reason: Cough Last Admin: 03/14/20 10:41 Dose: 100 mg Documented by: Enoxaparin Sodium (Lovenox) 40 mg SUBCUT DAILY [facility] Last Admin: 03/14/20 09:11 Dose: 40 mg Documented by: Guaifenesin/Codeine Phosphate (Robitussin Ac) 10 ml PO Q4H PRN PRN Reason: Cough Last Admin: 03/14/20 09:14 Dose: 10 ml Documented by: Ceftriaxone Sodium 1 gm/ (Sodium Chloride) 50 mls @ 100 mls/hr IV Q24H [facility] Levofloxacin/Dextrose 750 mg/ (Premix) 150 mls @ 100 mls/hr IV Q24H [facility] Last Admin: 03/13/20 19:43 Dose: 100 mls/hr Documented by: Magnesium Sulfate 2 gm/ Premix 50 mls @ 25 mls/hr IV Q6H [facility] Stop: 03/14/20 23:59 Last Admin: 03/14/20 09:11 Dose: 25 mls/hr Documented by: Sodium Chloride (Normal Saline) 1,000 mls @ 50 mls/hr IV ASDIRECTED [facility] Ibuprofen (Motrin) 600 mg PO Q6H PRN PRN Reason: Pain/Fever Last Admin: 03/14/20 10:41 Dose: 600 mg Documented by: Lactobacillus Rhamnosus (Culturelle) 1 cap PO BID [facility] Last Admin: 03/14/20 09:10 Dose: 1 cap Documented by: Levothyroxine Sodium (Synthroid) 50 mcg PO ACBREAKFAST [facility] Last Admin: 03/14/20 09:10 Dose: 50 mcg Documented by: Lorazepam (Ativan) 0.5 mg IVPUSH Q4H PRN PRN Reason: Nausea/Vomiting Magnesium Hydroxide (Milk Of Magnesia) 30 ml PO Q12H PRN PRN Reason: Constipation Melatonin (Melatonin) 9 mg PO BEDTIME PRN PRN Reason: Sleep Morphine Sulfate (Morphine) 2 mg IVPUSH Q2H PRN PRN Reason: Pain (severe 7-10) Ondansetron HCl (Zofran) 4 mg IV Q6H PRN PRN Reason: Nausea/Vomiting Ondansetron HCl (Zofran Odt) 4 mg PO Q6H PRN PRN Reason: Nausea able to take PO Oxycodone HCl (Oxycodone) 5 - 10 mg PO Q4H PRN PRN Reason: Pain Potassium Chloride (Klor-Con M20) 40 meq PO BID [facility] Last Admin: 03/14/20 09:10 Dose: 40 meq Documented by: Senna/Docusate Sodium (Senna Plus) 1 tab PO BID PRN PRN Reason: Constipation Discontinued Medications Sodium Chloride (Normal Saline) 90 mls @ 4 mls/sec IV ASDIRECTED [facility] Last Admin: 03/13/20 13:50 Dose: 4 mls/sec Documented by: Sodium Chloride (Normal Saline) 1,000 mls @ 500 mls/hr IV .BOLUS ONE Stop: 03/13/20 18:06 Last Admin: 03/13/20 16:30 Dose: 500 mls/hr Documented by: Ceftriaxone Sodium 1 gm/ (Sodium Chloride) 50 mls @ 100 mls/hr IV ONETIME ONE Stop: 03/13/20 16:36 Last Admin: 03/13/20 16:30 Dose: 100 mls/hr Documented by: Sodium Chloride (Normal Saline) 1,000 mls @ 100 mls/hr IV ASDIRECTED [facility] Last Admin: 03/14/20 07:11 Dose: 100 mls/hr Documented by: Iopamidol (Isovue-370 (76%)) 100 ml IV . DIRECTED ONE Stop: 03/13/20 13:29 Last Admin: 03/13/20 13:51 Dose: 100 ml Documented by: - Exam Quality Assessment: Supplemental Oxygen General: Alert, Oriented, Cooperative, Mild Distress (increased work of breathing ) Lungs: Normal Respiratory Effort, Other (tracheal breath sound right upper chest ). No: Crackles, Wheezing Cardiovascular: Regular Rate, Regular Rhythm GI/Abdominal Exam: Soft, No Distention Extremities: No Pedal Edema. No: Increased Warmth Skin: Warm, Dry Psy/Mental Status: Alert, Normal Affect Sepsis Event Note - Evaluation Sepsis Screening Result: Sepsis Risk - Focused Exam Vital Signs: Vital Signs Temp Temp Pulse Resp BP Pulse Ox 03/14/20 11:41 37.7 C 03/14/20 10:51 114 H 03/14/20 10:41 38.8 C H 03/14/20 10:20 38.9 C H 119 H 18 124/64 96 03/14/20 07:06 36.9 C 88 26 H 104/64 98 03/14/20 07:00 37.0 C 86 16 111/43 L 100 03/14/20 03:00 35.7 C L 94 16 93/53 L 97 - Problem List & Annotations (1) Community acquired pneumonia SNOMED Code(s): 363753947 Code(s): J18.9 - PNEUMONIA, UNSPECIFIED ORGANISM Status: Acute Current Visit: Yes Qualifiers: Laterality: unspecified laterality Qualified Code(s): J18.9 - Pneumonia, unspecified organism (2) Hypokalemia SNOMED Code(s): 92453126 Code(s): E87.6 - HYPOKALEMIA Status: Acute Current Visit: Yes (3) Malignant neoplasm of unspecified part of right bronchus or lung SNOMED Code(s): 566404067, 486241976 Code(s): C34.91 - MALIGNANT NEOPLASM OF UNSP PART OF RIGHT BRONCHUS OR LUNG Status: Chronic Current Visit: No (4) Cirrhosis of liver SNOMED Code(s): 40590704 Code(s): K74.60 - UNSPECIFIED CIRRHOSIS OF LIVER Status: Chronic Current Visit: No - Problem List Review Problem List Initiated/Reviewed/Updated: Yes - My Orders Last 24 Hours: My Active Orders 03/13/20 Dinner Regular Diet [DIET] 03/13/20 19:07 Albuterol [Proventil Neb Soln] 2.5 mg NEB Q4H PRN Benzonatate [Tessalon Perles] 100 mg PO TID PRN Docusate Sodium/Sennosides [Senna Plus] 1 tab PO BID PRN Ibuprofen [Motrin] 600 mg PO Q6H PRN LORazepam [Ativan] 0.5 mg IVPUSH Q4H PRN Magnesium Hydroxide [Milk of Magnesia] 30 ml PO Q12H PRN Melatonin 9 mg PO BEDTIME PRN Morphine 2 mg IVPUSH Q2H PRN Ondansetron [Zofran ODT] 4 mg PO Q6H PRN Ondansetron [Zofran] 4 mg IV Q6H PRN oxyCODONE 5 - 10 mg PO Q4H PRN 03/13/20 19:07 Patient Status [ADT] Routine Intake and Output [RC] QSHIFT Notify Provider Vital Signs [RC] ASDIRECTED Oxygen Therapy [RC] PRN RT Aerosol Therapy [RC] ASDIRECTED Up With Assistance [RC] ASDIRECTED VTE/DVT Education [RC] Per Unit Routine Vital Signs [RC] Q4H CULTURE RESPIRATORY + SMEAR [RM] Routine 03/13/20 19:29 Codeine/guaiFENesin [Robitussin AC] 10 ml PO Q4H PRN 03/13/20 20:00 Levofloxacin/Dextrose 5%-Water [Levaquin in D5W 750 MG/150 ML] 750 mg Premix Bag 1 bag IV Q24H 03/13/20 21:00 Albuterol/Ipratropium [DuoNeb 3.0-0.5 MG/3 ML] 3 ml NEB QIDRT Lactobacillus Rhamnosus GG [Culturelle] 1 cap PO BID Potassium Chloride [Klor-Con M20] 40 meq PO BID 03/14/20 05:30 ANTIBODY IDENTIFICATION [BBK] Routine PATIENT RETYPE [BBK] Routine RED BLOOD CELLS LP [BBK] Routine TYPE AND SCREEN [BBK] Routine 03/14/20 07:30 Levothyroxine [Synthroid] 50 mcg PO ACBREAKFAST 03/14/20 08:25 Transfuse Red Blood Cells [COMM] Routine 03/14/20 09:00 Enoxaparin [Lovenox] 40 mg SUBCUT DAILY 03/14/20 10:00 Magnesium Sulfate/Water [Magnesium Sulfate in Water Premix] 2 gm Premix Bag 1 bag IV Q6H 03/14/20 14:06 Resuscitation Status Routine 03/14/20 14:08 Discontinue Telemetry Monitoring [Cardiac Monitoring Discontinue] [RC] Click to Edit 03/14/20 14:15 Sodium Chloride 0.9% [Normal Saline] 1,000 ml IV ASDIRECTED 03/14/20 17:00 cefTRIAXone [Rocephin] 1 gm Sodium Chloride 0.9% [Normal Saline] 50 ml IV Q24H 03/15/20 05:00 BASIC METABOLIC PANEL,BMP [CHEM] Timed CBC W/O DIFF,HEMOGRAM [HEME] Timed (1) - Plan Plan:: ASSESSMENT AND PLAN - Bilateral pneumonia-stable since yesterday but not dramatically improved. Still having fevers. Oxygenation is stable. Cultures negative so far. -Antibiotic coverage with ceftriaxone and levofloxacin -Supplement oxygen as needed -Sputum culture if able -Continue gentle IV fluids -Follow-up blood cultures Large right lung squamous cell cancer-large cavitary mass which has nearly doubled in size over the past month. Oncology does not feel that they have any additional treatment offer at this point given the rapid progression of her disease. Patient and her are agreeable to talking to the hospice folks. She was agreeable to a transition to a DO NOT RESUSCITATE order. Hemoglobin less than 7, likely related to recent chemotherapy. -Transfuse 2 units of blood tomorrow when available -Hospice consultation tomorrow -Repeat CBC in the morning Hypokalemia-mild at this time, replacing with oral supplementation. Cirrhosis-chronic, stable. History of hepatic encephalopathy but no evidence at this time. -Consider restarting lactulose tomorrow Maintenance issues - - DVT prophylaxis -enoxaparin - GI prophylaxis -not indicated - Nutrition -regular diet Disposition -I would anticipate discharge home with hospice after the hospital stay Primary care physician -Dr Tayla Carnes M.D.
[2020-03-14] MEDS ORDERED: Sodium Chloride 0.9% 1,000 ML IV SCH (14:15)
[2020-03-14] MEDS: oxyCODONE 5 MG Tab PO PRN (16:15)
[2020-03-14] MEDS ORDERED: cefTRIAXone 1 GM in Sodium Chloride 0.9% 50 ML IV SCH (17:00)
[2020-03-14] MEDS: Levofloxacin/Dextrose 5%-Water 750 MG in Premix Bag 1 BAG IV SCH (19:53)
[2020-03-15] MEDS: Benzonatate 100 MG Cap PO PRN ×3 (04:34→23:12)
[2020-03-15] MEDS: Albuterol/Ipratropium 3.0-0.5 MG/3 ML Neb Soln NEB SCH ×4 (07:14→21:17)
[2020-03-15] MEDS: Codeine/guaiFENesin 100mg-10 MG/5 ML Syrup 10 ML Cup PO PRN ×3 (08:24→23:43)
[2020-03-15] MEDS: Potassium Chloride 20 MEQ Tab.ER PO SCH ×2 (08:24→21:23)
[2020-03-15] MEDS: Enoxaparin 40 MG/0.4 ML Syringe SUBCUT SCH (08:24)
[2020-03-15] MEDS: Lactobacillus Rhamnosus GG (Probiotic) Cap PO SCH ×2 (08:24→21:23)
[2020-03-15] MEDS: Levothyroxine 50 MCG Tab PO SCH (08:24)
[2020-03-15] MEDS: Ibuprofen 600 MG Tab PO PRN ×2 (11:15→18:41)
[2020-03-15] MEDS: oxyCODONE 5 MG Tab PO PRN (11:15)
[2020-03-15] MEDS: Cefepime 1 GM in Sodium Chloride 0.9% 50 ML IV SCH ×2 (14:08→21:18)
--- NOTE | 2020-03-15 14:54 | PCM.PN ---
- General Info Date of Service: 03/15/20 Subjective Update: No acute events overnight. Patient did have a fever of 102 yesterday and 103 this morning. Cough is a little better. Still quite short of breath. Oxygenation stable on 2 L. No significant upper chest pain at this time. White count remains low at 2.4. Hemoglobin still less than 7. Blood transfusion was planned but blood has been delayed by antibodies and difficulty finding compatible blood but should be available today. Blood pressures have been in the normal range. She did meet with the hospice team today and is anticipating a discharge home with hospice after treatment for this pneumonia. Functional Status: Reports: Pain Controlled, Tolerating Diet - Review of Systems General: Reports: Fever, Weakness Pulmonary: Reports: Shortness of Breath, Cough - Patient Data Vitals - Most Recent: Last Vital Signs Temp 101.9 C H 03/15/20 12:15 Pulse 97 03/15/20 14:36 Resp 18 03/15/20 11:00 BP 113/62 03/15/20 11:00 Pulse Ox 99 03/15/20 14:36 Weight - Most Recent: 82.917 kg I&O - Last 24 Hours: Intake & Output 03/14/20 03/15/20 03/15/20 22:59 06:59 14:59 Intake Total 2570 381 610 Output Total 700 600 Balance 1870 381 10 Lab Results Last 24 Hours: Laboratory Results - last 24 hr 03/14/20 03/15/20 03/15/20 Range/Units 05:30 05:01 05:01 WBC 2.4 L (4.5-11.0) K/uL RBC 2.49 L (3.30-5.50) M/uL Hgb 6.8 L* (12.0-15.0) g/dL Hct 22.1 L (36.0-48.0) % MCV 89 (80-98) fL MCH 27 (27-31) pg MCHC 31 L (32-36) % Plt Count 128 L (150-400) K/uL Sodium 132 L (140-148) mmol/L Potassium 3.7 (3.6-5.2) mmol/L Chloride 99 L (100-108) mmol/L Carbon Dioxide 28 (21-32) mmol/L Anion Gap 8.7 (5.0-14.0) mmol/L BUN 5 L D (7-18) mg/dL Creatinine 0.5 L (0.6-1.0) mg/dL Est Cr Clr Drug Dosing 91.47 mL/min Estimated GFR (MDRD) > 60 (>60) Glucose 100 (74-106) mg/dL Calcium 8.0 L (8.5-10.1) mg/dL Blood Type O POSITIVE Gel Antibody Screen Positive A* Antibody Identification Anti-Fya Crossmatch See Detail Balta Results Last 24 Hours: Microbiology 03/13/20 16:08 Aerobic Blood Culture - Preliminary Blood - Venous NO GROWTH AFTER 1 DAY Anaerobic Blood Culture - Preliminary NO GROWTH AFTER 1 DAY 03/13/20 16:18 Aerobic Blood Culture - Preliminary Blood - Venous - Lab Draw NO GROWTH AFTER 1 DAY Anaerobic Blood Culture - Preliminary NO GROWTH AFTER 1 DAY Med Orders - Current: Current Medications Albuterol (Proventil Neb Soln) 2.5 mg NEB Q4H PRN PRN Reason: Wheezing Albuterol/Ipratropium (Duoneb 3.0-0.5 Mg/3 Ml) 3 ml NEB QIDRT [facility] Last Admin: 03/15/20 14:36 Dose: 3 ml Documented by: Benzonatate (Tessalon Perles) 100 mg PO TID PRN PRN Reason: Cough Last Admin: 03/15/20 11:20 Dose: 100 mg Documented by: Enoxaparin Sodium (Lovenox) 40 mg SUBCUT DAILY [facility] Last Admin: 03/15/20 08:24 Dose: 40 mg Documented by: Guaifenesin/Codeine Phosphate (Robitussin Ac) 10 ml PO Q4H PRN PRN Reason: Cough Last Admin: 03/15/20 08:24 Dose: 10 ml Documented by: Levofloxacin/Dextrose 750 mg/ (Premix) 150 mls @ 100 mls/hr IV Q24H [facility] Last Admin: 03/14/20 19:53 Dose: 100 mls/hr Documented by: Cefepime HCl 1 gm/ Sodium (Chloride) 50 mls @ 100 mls/hr IV Q8H [facility] Last Admin: 03/15/20 14:08 Dose: 100 mls/hr Documented by: Vancomycin HCl 1.25 gm/ Sodium (Chloride) 250 mls @ 165 mls/hr IV Q12H [facility] Last Admin: 03/15/20 14:53 Dose: 165 mls/hr Documented by: Ibuprofen (Motrin) 600 mg PO Q6H PRN PRN Reason: Pain/Fever Last Admin: 03/15/20 11:15 Dose: 600 mg Documented by: Lactobacillus Rhamnosus (Culturelle) 1 cap PO BID [facility] Last Admin: 03/15/20 08:24 Dose: 1 cap Documented by: Levothyroxine Sodium (Synthroid) 50 mcg PO ACBREAKFAST [facility] Last Admin: 03/15/20 08:24 Dose: 50 mcg Documented by: Lorazepam (Ativan) 0.5 mg IVPUSH Q4H PRN PRN Reason: Nausea/Vomiting Magnesium Hydroxide (Milk Of Magnesia) 30 ml PO Q12H PRN PRN Reason: Constipation Melatonin (Melatonin) 9 mg PO BEDTIME PRN PRN Reason: Sleep Morphine Sulfate (Morphine) 2 mg IVPUSH Q2H PRN PRN Reason: Pain (severe 7-10) Ondansetron HCl (Zofran) 4 mg IV Q6H PRN PRN Reason: Nausea/Vomiting Ondansetron HCl (Zofran Odt) 4 mg PO Q6H PRN PRN Reason: Nausea able to take PO Oxycodone HCl (Oxycodone) 5 - 10 mg PO Q4H PRN PRN Reason: Pain Last Admin: 03/15/20 11:15 Dose: 10 mg Documented by: Potassium Chloride (Klor-Con M20) 40 meq PO BID [facility] Last Admin: 03/15/20 08:24 Dose: 40 meq Documented by: Senna/Docusate Sodium (Senna Plus) 1 tab PO BID PRN PRN Reason: Constipation Discontinued Medications Sodium Chloride (Normal Saline) 90 mls @ 4 mls/sec IV ASDIRECTED [facility] Last Admin: 03/13/20 13:50 Dose: 4 mls/sec Documented by: Sodium Chloride (Normal Saline) 1,000 mls @ 500 mls/hr IV .BOLUS ONE Stop: 03/13/20 18:06 Last Admin: 03/13/20 16:30 Dose: 500 mls/hr Documented by: Ceftriaxone Sodium 1 gm/ (Sodium Chloride) 50 mls @ 100 mls/hr IV ONETIME ONE Stop: 03/13/20 16:36 Last Admin: 03/13/20 16:30 Dose: 100 mls/hr Documented by: Ceftriaxone Sodium 1 gm/ (Sodium Chloride) 50 mls @ 100 mls/hr IV Q24H [facility] Last Admin: 03/14/20 18:03 Dose: 100 mls/hr Documented by: Sodium Chloride (Normal Saline) 1,000 mls @ 100 mls/hr IV ASDIRECTED [facility] Last Admin: 03/14/20 07:11 Dose: 100 mls/hr Documented by: Magnesium Sulfate 2 gm/ Premix 50 mls @ 25 mls/hr IV Q6H [facility] Stop: 03/14/20 23:59 Last Admin: 03/14/20 22:27 Dose: 25 mls/hr Documented by: Sodium Chloride (Normal Saline) 1,000 mls @ 50 mls/hr IV ASDIRECTED [facility] Last Admin: 03/14/20 22:35 Dose: 50 mls/hr Documented by: Iopamidol (Isovue-370 (76%)) 100 ml IV . DIRECTED ONE Stop: 03/13/20 13:29 Last Admin: 03/13/20 13:51 Dose: 100 ml Documented by: - Exam Quality Assessment: Supplemental Oxygen General: Alert, Oriented, Cooperative, No Acute Distress Lungs: Normal Respiratory Effort, Crackles (right mid lung ). No: Wheezing Cardiovascular: Regular Rate, Regular Rhythm GI/Abdominal Exam: Normal Bowel Sounds, Soft, No Distention Extremities: No Pedal Edema. No: Increased Warmth Skin: Warm, Dry Psy/Mental Status: Alert, Normal Affect Sepsis Event Note - Evaluation Sepsis Screening Result: Sepsis Risk - Focused Exam Vital Signs: Vital Signs Temp Temp Pulse Resp BP Pulse Ox Pulse Ox 03/15/20 14:36 97 99 03/15/20 12:15 101.9 C H 03/15/20 11:15 39.7 C H 03/15/20 11:14 39.7 C H 03/15/20 11:00 39.1 C H 126 H 18 113/62 99 03/15/20 10:45 122 H 96 03/15/20 07:14 97 94 L 03/15/20 07:00 37.4 C 112 H 18 112/56 L 100 03/15/20 04:00 37.3 C 96 18 96/57 L 99 - Problem List & Annotations (1) Community acquired pneumonia SNOMED Code(s): 281532287 Code(s): J18.9 - PNEUMONIA, UNSPECIFIED ORGANISM Status: Acute Current Visit: Yes Qualifiers: Laterality: unspecified laterality Qualified Code(s): J18.9 - Pneumonia, unspecified organism (2) Hypokalemia SNOMED Code(s): 89979926 Code(s): E87.6 - HYPOKALEMIA Status: Acute Current Visit: Yes (3) Malignant neoplasm of unspecified part of right bronchus or lung SNOMED Code(s): 150426206, 024513488 Code(s): C34.91 - MALIGNANT NEOPLASM OF UNSP PART OF RIGHT BRONCHUS OR LUNG Status: Chronic Current Visit: No (4) Cirrhosis of liver SNOMED Code(s): 07103846 Code(s): K74.60 - UNSPECIFIED CIRRHOSIS OF LIVER Status: Chronic Current Visit: No (5) Pancytopenia due to chemotherapy SNOMED Code(s): 6932745, 183649675 Code(s): D61.810 - ANTINEOPLASTIC CHEMOTHERAPY INDUCED PANCYTOPENIA Status: Acute Current Visit: Yes - Problem List Review Problem List Initiated/Reviewed/Updated: Yes - My Orders Last 24 Hours: My Active Orders 03/14/20 14:06 Resuscitation Status Routine 03/14/20 14:15 Sodium Chloride 0.9% [Normal Saline] 1,000 ml IV ASDIRECTED 03/15/20 13:00 Cefepime [Maxipime] 1 gm Sodium Chloride 0.9% [Normal Saline] 50 ml IV Q8H 03/15/20 14:00 Vancomycin 1.25 gm Sodium Chloride 0.9% [Normal Saline] 250 ml IV Q12H 03/15/20 15:00 Sodium Chloride 0.9% [Normal Saline] 1,000 ml IV ASDIRECTED 03/16/20 05:00 BASIC METABOLIC PANEL,BMP [CHEM] Timed CBC WITH AUTO DIFF [HEME] Timed - Plan Plan:: ASSESSMENT AND PLAN - Bilateral pneumonia-stable since yesterday but not dramatically improved. Still having fevers. Oxygenation is stable. Cultures negative so far. -Antibiotic coverage with levofloxacin, cefepime and vancomycin -Supplement oxygen as needed -Continue gentle IV fluids -Follow-up blood cultures Large right lung squamous cell cancer-large cavitary mass which has nearly doubled in size over the past month. Oncology does not feel that they have any additional treatment offer at this point given the rapid progression of her disease. Patient did meet with hospice today and is anticipating discharge home with hospice. -Aggressive comfort based management Pancytopenia secondary to chemotherapy-white count slightly better today. Platelets only slightly low. Hemoglobin less than 7 and transfusion is planned when blood is available. -Transfused 2 units of packed red blood cells when available -Repeat labs in the morning Hypokalemia-mild at this time, replacing with oral supplementation. Cirrhosis-chronic, stable. History of hepatic encephalopathy but no evidence at this time. Maintenance issues - - DVT prophylaxis -enoxaparin - GI prophylaxis -not indicated - Nutrition -regular diet Disposition -I would anticipate discharge home with hospice after the hospital stay Primary care physician -Dr Tayla Carnes M.D.
[2020-03-15] MEDS ORDERED: Sodium Chloride 0.9% 1,000 ML IV SCH (15:00)
[2020-03-15] MEDS: Levofloxacin/Dextrose 5%-Water 750 MG in Premix Bag 1 BAG IV SCH (19:41)
[2020-03-16] MEDS: Ibuprofen 600 MG Tab PO PRN ×3 (02:45→22:46)
[2020-03-16] MEDS: Cefepime 1 GM in Sodium Chloride 0.9% 50 ML IV SCH ×3 (05:06→22:02)
[2020-03-16] MEDS: oxyCODONE 5 MG Tab PO PRN ×3 (06:39→18:01)
[2020-03-16] MEDS: Levothyroxine 50 MCG Tab PO SCH (07:30)
[2020-03-16] MEDS: Albuterol/Ipratropium 3.0-0.5 MG/3 ML Neb Soln NEB SCH ×4 (08:06→20:31)
[2020-03-16] MEDS: Potassium Chloride 20 MEQ Tab.ER PO SCH ×2 (08:24→20:31)
[2020-03-16] MEDS: Lactobacillus Rhamnosus GG (Probiotic) Cap PO SCH ×2 (08:24→20:31)
[2020-03-16] MEDS: Enoxaparin 40 MG/0.4 ML Syringe SUBCUT SCH (08:25)
--- NOTE | 2020-03-16 12:19 | PCM.PN ---
- General Info Date of Service: 03/16/20 Subjective Update: No acute events overnight. Still has a annoying cough that comes and goes. Still short of breath with any activity. No abdominal pain or nausea. Still having fevers but temperature curve seems a little better. Mood has been good. She has had a chance to talk to multiple family members. She talked to hospice yesterday and is interested in utilizing their services when she goes home. Tolerating current antibiotics. Tolerated blood transfusion yesterday. Functional Status: Reports: Pain Controlled, Tolerating Diet - Review of Systems General: Reports: Fever Pulmonary: Reports: Shortness of Breath, Cough - Patient Data Vitals - Most Recent: Last Vital Signs Temp 36.7 C 03/16/20 11:00 Pulse 121 H 03/16/20 11:00 Resp 17 03/16/20 11:00 BP 138/54 L 03/16/20 11:00 Pulse Ox 98 03/16/20 11:00 Weight - Most Recent: 82.917 kg I&O - Last 24 Hours: Intake & Output 03/15/20 03/16/20 03/16/20 22:59 06:59 14:59 Intake Total 2446 928 200 Output Total 400 2900 Balance 6 -1971 200 Lab Results Last 24 Hours: Laboratory Results - last 24 hr 03/14/20 03/16/20 03/16/20 Range/Units 05:30 05:30 05:30 WBC 5.1 (4.5-11.0) K/uL RBC 3.39 (3.30-5.50) M/uL Hgb 9.3 L D (12.0-15.0) g/dL Hct 29.1 L (36.0-48.0) % MCV 86 (80-98) fL MCH 27 (27-31) pg MCHC 32 (32-36) % Plt Count 143 L (150-400) K/uL Neut % (Auto) 84 H (36-66) % Lymph % (Auto) 3 L (24-44) % [place] % (Auto) 13 H (2-6) % Eos % (Auto) 0 L (2-4) % Baso % (Auto) 0 (0-1) % Sodium 134 L (140-148) mmol/L Potassium 3.8 (3.6-5.2) mmol/L Chloride 102 (100-108) mmol/L Carbon Dioxide 27 (21-32) mmol/L Anion Gap 8.8 (5.0-14.0) mmol/L BUN 3 L (7-18) mg/dL Creatinine 0.6 (0.6-1.0) mg/dL Est Cr Clr Drug Dosing 76.22 mL/min Estimated GFR (MDRD) > 60 (>60) Glucose 89 (74-106) mg/dL Calcium 8.3 L (8.5-10.1) mg/dL Blood Type O POSITIVE Gel Antibody Screen Positive A* Antibody Identification Anti-Fya Crossmatch See Detail Balta Results Last 24 Hours: Microbiology 03/13/20 16:08 Aerobic Blood Culture - Preliminary Blood - Venous NO GROWTH AFTER 2 DAYS Anaerobic Blood Culture - Preliminary NO GROWTH AFTER 2 DAYS 03/13/20 16:18 Aerobic Blood Culture - Preliminary Blood - Venous - Lab Draw NO GROWTH AFTER 2 DAYS Anaerobic Blood Culture - Preliminary NO GROWTH AFTER 2 DAYS Med Orders - Current: Current Medications Albuterol (Proventil Neb Soln) 2.5 mg NEB Q4H PRN PRN Reason: Wheezing Albuterol/Ipratropium (Duoneb 3.0-0.5 Mg/3 Ml) 3 ml NEB QIDRT [facility] Last Admin: 03/16/20 10:32 Dose: 3 ml Documented by: Benzonatate (Tessalon Perles) 100 mg PO TID PRN PRN Reason: Cough Last Admin: 03/15/20 23:12 Dose: 100 mg Documented by: Enoxaparin Sodium (Lovenox) 40 mg SUBCUT DAILY [facility] Last Admin: 03/16/20 08:25 Dose: 40 mg Documented by: Guaifenesin/Codeine Phosphate (Robitussin Ac) 10 ml PO Q4H PRN PRN Reason: Cough Last Admin: 03/15/20 23:43 Dose: 10 ml Documented by: Heparin Sodium (Porcine) (Heparin Lock Flush 100 Units/Ml) 500 units FLUSH ASDIRECTED PRN PRN Reason: IV Use Last Admin: 03/15/20 23:55 Dose: 500 units Documented by: Levofloxacin/Dextrose 750 mg/ (Premix) 150 mls @ 100 mls/hr IV Q24H [facility] Last Admin: 03/15/20 19:41 Dose: 100 mls/hr Documented by: Cefepime HCl 1 gm/ Sodium (Chloride) 50 mls @ 100 mls/hr IV Q8H [facility] Last Admin: 03/16/20 05:06 Dose: 100 mls/hr Documented by: Vancomycin HCl 1.25 gm/ Sodium (Chloride) 250 mls @ 165 mls/hr IV Q12H [facility] Last Admin: 03/16/20 02:37 Dose: 165 mls/hr Documented by: Sodium Chloride (Normal Saline) 1,000 mls @ 25 mls/hr IV ASDIRECTED [facility] Last Admin: 03/16/20 07:29 Dose: 25 mls/hr Documented by: Ibuprofen (Motrin) 600 mg PO Q6H PRN PRN Reason: Pain/Fever Last Admin: 03/16/20 02:45 Dose: 600 mg Documented by: Lactobacillus Rhamnosus (Culturelle) 1 cap PO BID [facility] Last Admin: 03/16/20 08:24 Dose: 1 cap Documented by: Levothyroxine Sodium (Synthroid) 50 mcg PO ACBREAKFAST [facility] Last Admin: 03/16/20 07:30 Dose: 50 mcg Documented by: Lorazepam (Ativan) 0.5 mg IVPUSH Q4H PRN PRN Reason: Nausea/Vomiting Magnesium Hydroxide (Milk Of Magnesia) 30 ml PO Q12H PRN PRN Reason: Constipation Melatonin (Melatonin) 9 mg PO BEDTIME PRN PRN Reason: Sleep Morphine Sulfate (Morphine) 2 mg IVPUSH Q2H PRN PRN Reason: Pain (severe 7-10) Ondansetron HCl (Zofran) 4 mg IV Q6H PRN PRN Reason: Nausea/Vomiting Ondansetron HCl (Zofran Odt) 4 mg PO Q6H PRN PRN Reason: Nausea able to take PO Oxycodone HCl (Oxycodone) 5 - 10 mg PO Q4H PRN PRN Reason: Pain Last Admin: 03/16/20 06:39 Dose: 5 mg Documented by: Potassium Chloride (Klor-Con M20) 40 meq PO BID [facility] Last Admin: 03/16/20 08:24 Dose: 40 meq Documented by: Senna/Docusate Sodium (Senna Plus) 1 tab PO BID PRN PRN Reason: Constipation Discontinued Medications Sodium Chloride (Normal Saline) 90 mls @ 4 mls/sec IV ASDIRECTED [facility] Last Admin: 03/13/20 13:50 Dose: 4 mls/sec Documented by: Sodium Chloride (Normal Saline) 1,000 mls @ 500 mls/hr IV .BOLUS ONE Stop: 03/13/20 18:06 Last Admin: 03/13/20 16:30 Dose: 500 mls/hr Documented by: Ceftriaxone Sodium 1 gm/ (Sodium Chloride) 50 mls @ 100 mls/hr IV ONETIME ONE Stop: 03/13/20 16:36 Last Admin: 03/13/20 16:30 Dose: 100 mls/hr Documented by: Ceftriaxone Sodium 1 gm/ (Sodium Chloride) 50 mls @ 100 mls/hr IV Q24H [facility] Last Admin: 03/14/20 18:03 Dose: 100 mls/hr Documented by: Sodium Chloride (Normal Saline) 1,000 mls @ 100 mls/hr IV ASDIRECTED [facility] Last Admin: 03/14/20 07:11 Dose: 100 mls/hr Documented by: Magnesium Sulfate 2 gm/ Premix 50 mls @ 25 mls/hr IV Q6H [facility] Stop: 03/14/20 23:59 Last Admin: 03/14/20 22:27 Dose: 25 mls/hr Documented by: Sodium Chloride (Normal Saline) 1,000 mls @ 50 mls/hr IV ASDIRECTED [facility] Last Admin: 03/14/20 22:35 Dose: 50 mls/hr Documented by: Iopamidol (Isovue-370 (76%)) 100 ml IV . DIRECTED ONE Stop: 03/13/20 13:29 Last Admin: 03/13/20 13:51 Dose: 100 ml Documented by: - Exam Quality Assessment: Supplemental Oxygen General: Alert, Oriented, Cooperative, No Acute Distress Lungs: Normal Respiratory Effort. No: Wheezing Cardiovascular: Regular Rate, Regular Rhythm GI/Abdominal Exam: Soft, No Distention Psy/Mental Status: Alert, Normal Affect Sepsis Event Note - Evaluation Sepsis Screening Result: No Definite Risk - Focused Exam Vital Signs: Vital Signs Temp Temp Pulse Resp BP Pulse Ox Pulse Ox 03/16/20 11:00 36.7 C 121 H 17 138/54 L 98 03/16/20 10:33 96 96 03/16/20 08:06 103 H 95 03/16/20 07:00 35.7 C L 90 16 104/62 98 03/16/20 02:45 38.2 C H 03/16/20 02:40 38.2 C H 113 H 18 105/58 L 97 - Problem List & Annotations (1) Community acquired pneumonia SNOMED Code(s): 294288407 Code(s): J18.9 - PNEUMONIA, UNSPECIFIED ORGANISM Status: Acute Current Visit: Yes Qualifiers: Laterality: unspecified laterality Qualified Code(s): J18.9 - Pneumonia, unspecified organism (2) Hypokalemia SNOMED Code(s): 91029202 Code(s): E87.6 - HYPOKALEMIA Status: Acute Current Visit: Yes (3) Malignant neoplasm of unspecified part of right bronchus or lung SNOMED Code(s): 020443829, 139293183 Code(s): C34.91 - MALIGNANT NEOPLASM OF UNSP PART OF RIGHT BRONCHUS OR LUNG Status: Chronic Current Visit: No (4) Cirrhosis of liver SNOMED Code(s): 14725751 Code(s): K74.60 - UNSPECIFIED CIRRHOSIS OF LIVER Status: Chronic Current Visit: No (5) Pancytopenia due to chemotherapy SNOMED Code(s): 5936496, 141509268 Code(s): D61.810 - ANTINEOPLASTIC CHEMOTHERAPY INDUCED PANCYTOPENIA Status: Acute Current Visit: Yes - Problem List Review Problem List Initiated/Reviewed/Updated: Yes - My Orders Last 24 Hours: My Active Orders 03/15/20 13:00 Cefepime [Maxipime] 1 gm Sodium Chloride 0.9% [Normal Saline] 50 ml IV Q8H 03/15/20 14:00 Vancomycin 1.25 gm Sodium Chloride 0.9% [Normal Saline] 250 ml IV Q12H 03/15/20 15:00 Sodium Chloride 0.9% [Normal Saline] 1,000 ml IV ASDIRECTED 03/15/20 18:37 Communication Order [RC] ASDIRECTED 03/15/20 23:46 Heparin Sodium [Heparin Lock Flush 100 Units/ML] 500 units FLUSH ASDIRECTED PRN 03/17/20 05:00 BASIC METABOLIC PANEL,BMP [CHEM] Timed CBC W/O DIFF,HEMOGRAM [HEME] Timed (1) - Plan Plan:: ASSESSMENT AND PLAN - Bilateral pneumonia-stable and seems to be slightly better today. Still has a significant cough and dyspnea. Oxygenation has been stable. Cultures are negative. -Antibiotic coverage with levofloxacin, cefepime and vancomycin -Supplement oxygen as needed -IV fluids at TKO -Follow-up blood cultures Large right lung squamous cell cancer-large cavitary mass which has nearly doubled in size over the past month. Oncology does not feel that they have any additional treatment offer at this point given the rapid progression of her disease. Patient did meet with hospice and is anticipating discharge home with hospice. -Aggressive comfort based management Pancytopenia secondary to chemotherapy-white count better today. Platelets only slightly low. Hemoglobin has improved with blood transfusion yesterday. -Repeat labs in the morning Hypokalemia-improving with replacement. Cirrhosis-chronic, stable. History of hepatic encephalopathy but no evidence at this time. Maintenance issues - - DVT prophylaxis -enoxaparin - GI prophylaxis -not indicated - Nutrition -regular diet Disposition -I would anticipate discharge home with hospice after the hospital stay Primary care physician -Dr Tayla Carnes M.D.
[2020-03-16] MEDS: Benzonatate 100 MG Cap PO PRN (14:55)
[2020-03-16] MEDS: Codeine/guaiFENesin 100mg-10 MG/5 ML Syrup 10 ML Cup PO PRN (19:30)
[2020-03-16] MEDS: Levofloxacin/Dextrose 5%-Water 750 MG in Premix Bag 1 BAG IV SCH (20:30)
[2020-03-17] MEDS: Benzonatate 100 MG Cap PO PRN ×2 (03:45→19:43)
[2020-03-17] MEDS: Codeine/guaiFENesin 100mg-10 MG/5 ML Syrup 10 ML Cup PO PRN ×2 (03:45→19:43)
[2020-03-17] MEDS: Cefepime 1 GM in Sodium Chloride 0.9% 50 ML IV SCH ×3 (04:43→21:26)
[2020-03-17] MEDS: Levothyroxine 50 MCG Tab PO SCH (07:30)
[2020-03-17] MEDS: Albuterol/Ipratropium 3.0-0.5 MG/3 ML Neb Soln NEB SCH ×4 (07:39→21:38)
[2020-03-17] MEDS: Potassium Chloride 20 MEQ Tab.ER PO SCH ×2 (08:20→21:35)
[2020-03-17] MEDS: Lactobacillus Rhamnosus GG (Probiotic) Cap PO SCH ×2 (08:20→21:35)
[2020-03-17] MEDS: Enoxaparin 40 MG/0.4 ML Syringe SUBCUT SCH (08:20)
[2020-03-17] MEDS: oxyCODONE 5 MG Tab PO PRN ×3 (10:42→21:35)
--- NOTE | 2020-03-17 10:43 | PCM.PN ---
- General Info Date of Service: 03/17/20 Subjective Update: No acute events overnight. Still coughing but this is relatively stable. Oxygenation stable on 2 L of oxygen. Fatigues very quickly with activity. Vital signs have been stable. Appetite acceptable. No new positive culture results. Mood seems to be good considering the circumstances. White count slightly better today and hemoglobin stable. Functional Status: Reports: Pain Controlled, Tolerating Diet - Review of Systems General: Reports: Fever Pulmonary: Reports: Cough - Patient Data Vitals - Most Recent: Last Vital Signs Temp 36.1 C 03/17/20 07:00 Pulse 86 03/17/20 07:39 Resp 20 03/17/20 07:00 BP 117/58 L 03/17/20 07:00 Pulse Ox 99 03/17/20 07:39 Weight - Most Recent: 82.917 kg I&O - Last 24 Hours: Intake & Output 03/16/20 03/17/20 03/17/20 22:59 06:59 14:59 Intake Total 709 762 Output Total 004 185 0561 Balance 9 162 -1100 Lab Results Last 24 Hours: Laboratory Results - last 24 hr 03/14/20 03/17/20 03/17/20 Range/Units 05:30 05:30 05:30 WBC 5.8 (4.5-11.0) K/uL RBC 3.31 (3.30-5.50) M/uL Hgb 9.0 L (12.0-15.0) g/dL Hct 28.9 L (36.0-48.0) % MCV 87 (80-98) fL MCH 27 (27-31) pg MCHC 31 L (32-36) % Plt Count 135 L (150-400) K/uL Sodium 137 L (140-148) mmol/L Potassium 4.0 (3.6-5.2) mmol/L Chloride 102 (100-108) mmol/L Carbon Dioxide 29 (21-32) mmol/L Anion Gap 10.0 (5.0-14.0) mmol/L BUN 3 L (7-18) mg/dL Creatinine 0.6 (0.6-1.0) mg/dL Est Cr Clr Drug Dosing 76.22 mL/min Estimated GFR (MDRD) > 60 (>60) Glucose 99 (74-106) mg/dL Calcium 8.3 L (8.5-10.1) mg/dL Blood Type O POSITIVE Gel Antibody Screen Positive A* Antibody Identification Anti-Fya Crossmatch See Detail Balta Results Last 24 Hours: Microbiology 03/13/20 16:18 Aerobic Blood Culture - Preliminary Blood - Venous - Lab Draw NO GROWTH AFTER 3 DAYS Anaerobic Blood Culture - Preliminary NO GROWTH AFTER 3 DAYS 03/13/20 16:08 Aerobic Blood Culture - Preliminary Blood - Venous NO GROWTH AFTER 3 DAYS Anaerobic Blood Culture - Preliminary NO GROWTH AFTER 3 DAYS Med Orders - Current: Current Medications Albuterol (Proventil Neb Soln) 2.5 mg NEB Q4H PRN PRN Reason: Wheezing Albuterol/Ipratropium (Duoneb 3.0-0.5 Mg/3 Ml) 3 ml NEB QIDRT [facility] Last Admin: 03/17/20 07:39 Dose: 3 ml Documented by: Benzonatate (Tessalon Perles) 100 mg PO TID PRN PRN Reason: Cough Last Admin: 03/17/20 03:45 Dose: 100 mg Documented by: Enoxaparin Sodium (Lovenox) 40 mg SUBCUT DAILY [facility] Last Admin: 03/17/20 08:20 Dose: 40 mg Documented by: Guaifenesin/Codeine Phosphate (Robitussin Ac) 10 ml PO Q4H PRN PRN Reason: Cough Last Admin: 03/17/20 03:45 Dose: 10 ml Documented by: Heparin Sodium (Porcine) (Heparin Lock Flush 100 Units/Ml) 500 units FLUSH ASDIRECTED PRN PRN Reason: IV Use Last Admin: 03/15/20 23:55 Dose: 500 units Documented by: Levofloxacin/Dextrose 750 mg/ (Premix) 150 mls @ 100 mls/hr IV Q24H [facility] Last Admin: 03/16/20 20:30 Dose: 100 mls/hr Documented by: Cefepime HCl 1 gm/ Sodium (Chloride) 50 mls @ 100 mls/hr IV Q8H [facility] Last Admin: 03/17/20 04:43 Dose: 100 mls/hr Documented by: Sodium Chloride (Normal Saline) 1,000 mls @ 25 mls/hr IV ASDIRECTED [facility] Last Admin: 03/16/20 07:29 Dose: 25 mls/hr Documented by: Ibuprofen (Motrin) 600 mg PO Q6H PRN PRN Reason: Pain/Fever Last Admin: 03/16/20 22:46 Dose: 600 mg Documented by: Lactobacillus Rhamnosus (Culturelle) 1 cap PO BID [facility] Last Admin: 03/17/20 08:20 Dose: 1 cap Documented by: Levothyroxine Sodium (Synthroid) 50 mcg PO ACBREAKFAST [facility] Last Admin: 03/17/20 07:30 Dose: 50 mcg Documented by: Lorazepam (Ativan) 0.5 mg IVPUSH Q4H PRN PRN Reason: Nausea/Vomiting Magnesium Hydroxide (Milk Of Magnesia) 30 ml PO Q12H PRN PRN Reason: Constipation Melatonin (Melatonin) 9 mg PO BEDTIME PRN PRN Reason: Sleep Morphine Sulfate (Morphine) 2 mg IVPUSH Q2H PRN PRN Reason: Pain (severe 7-10) Ondansetron HCl (Zofran) 4 mg IV Q6H PRN PRN Reason: Nausea/Vomiting Ondansetron HCl (Zofran Odt) 4 mg PO Q6H PRN PRN Reason: Nausea able to take PO Oxycodone HCl (Oxycodone) 5 - 10 mg PO Q4H PRN PRN Reason: Pain Last Admin: 03/17/20 10:42 Dose: 5 mg Documented by: Potassium Chloride (Klor-Con M20) 40 meq PO BID [facility] Last Admin: 03/17/20 08:20 Dose: 40 meq Documented by: Senna/Docusate Sodium (Senna Plus) 1 tab PO BID PRN PRN Reason: Constipation Discontinued Medications Sodium Chloride (Normal Saline) 90 mls @ 4 mls/sec IV ASDIRECTED [facility] Last Admin: 03/13/20 13:50 Dose: 4 mls/sec Documented by: Sodium Chloride (Normal Saline) 1,000 mls @ 500 mls/hr IV .BOLUS ONE Stop: 03/13/20 18:06 Last Admin: 03/13/20 16:30 Dose: 500 mls/hr Documented by: Ceftriaxone Sodium 1 gm/ (Sodium Chloride) 50 mls @ 100 mls/hr IV ONETIME ONE Stop: 03/13/20 16:36 Last Admin: 03/13/20 16:30 Dose: 100 mls/hr Documented by: Ceftriaxone Sodium 1 gm/ (Sodium Chloride) 50 mls @ 100 mls/hr IV Q24H [facility] Last Admin: 03/14/20 18:03 Dose: 100 mls/hr Documented by: Sodium Chloride (Normal Saline) 1,000 mls @ 100 mls/hr IV ASDIRECTED [facility] Last Admin: 03/14/20 07:11 Dose: 100 mls/hr Documented by: Magnesium Sulfate 2 gm/ Premix 50 mls @ 25 mls/hr IV Q6H [facility] Stop: 03/14/20 23:59 Last Admin: 03/14/20 22:27 Dose: 25 mls/hr Documented by: Sodium Chloride (Normal Saline) 1,000 mls @ 50 mls/hr IV ASDIRECTED [facility] Last Admin: 03/14/20 22:35 Dose: 50 mls/hr Documented by: Vancomycin HCl 1.25 gm/ Sodium (Chloride) 250 mls @ 165 mls/hr IV Q12H [facility] Last Admin: 03/17/20 01:17 Dose: 165 mls/hr Documented by: Iopamidol (Isovue-370 (76%)) 100 ml IV . DIRECTED ONE Stop: 03/13/20 13:29 Last Admin: 03/13/20 13:51 Dose: 100 ml Documented by: - Exam Quality Assessment: Supplemental Oxygen General: Alert, Oriented, Cooperative, No Acute Distress Lungs: Normal Respiratory Effort Cardiovascular: Regular Rate, Regular Rhythm GI/Abdominal Exam: Soft, No Distention Extremities: No Pedal Edema Psy/Mental Status: Alert, Normal Affect Sepsis Event Note - Evaluation Sepsis Screening Result: No Definite Risk - Focused Exam Vital Signs: Vital Signs Temp Temp Pulse Resp BP Pulse Ox Pulse Ox 03/17/20 07:39 86 99 03/17/20 07:00 36.1 C 89 20 117/58 L 98 03/17/20 03:40 35.5 C L 88 20 89/63 L 97 03/16/20 23:46 37.1 C - Problem List & Annotations (1) Community acquired pneumonia SNOMED Code(s): 483419495 Code(s): J18.9 - PNEUMONIA, UNSPECIFIED ORGANISM Status: Acute Current Visit: Yes Qualifiers: Laterality: unspecified laterality Qualified Code(s): J18.9 - Pneumonia, unspecified organism (2) Hypokalemia SNOMED Code(s): 54394130 Code(s): E87.6 - HYPOKALEMIA Status: Acute Current Visit: Yes (3) Malignant neoplasm of unspecified part of right bronchus or lung SNOMED Code(s): 546253208, 061055237 Code(s): C34.91 - MALIGNANT NEOPLASM OF UNSP PART OF RIGHT BRONCHUS OR LUNG Status: Chronic Current Visit: No (4) Cirrhosis of liver SNOMED Code(s): 66714361 Code(s): K74.60 - UNSPECIFIED CIRRHOSIS OF LIVER Status: Chronic Current Visit: No (5) Pancytopenia due to chemotherapy SNOMED Code(s): 5344824, 367689240 Code(s): D61.810 - ANTINEOPLASTIC CHEMOTHERAPY INDUCED PANCYTOPENIA Status: Acute Current Visit: Yes - Problem List Review Problem List Initiated/Reviewed/Updated: Yes - Plan Plan:: ASSESSMENT AND PLAN - Bilateral pneumonia-stable but still requiring supplemental oxygen. Persistent cough. Fever curve improving. -Antibiotic coverage with levofloxacin, cefepime -Discontinue vancomycin -Supplement oxygen as needed -Follow-up blood cultures Large right lung squamous cell cancer-large cavitary mass which has nearly doubled in size over the past month. Oncology does not feel that they have any additional treatment offer at this point given the rapid progression of her disease. Patient did meet with hospice and is anticipating discharge home with hospice. -Aggressive comfort based management Pancytopenia secondary to chemotherapy-white count better today. Platelets only slightly low. Hemoglobin stable. Hypokalemia-improving with replacement. Cirrhosis-chronic, stable. History of hepatic encephalopathy but no evidence at this time. Maintenance issues - - DVT prophylaxis -enoxaparin - GI prophylaxis -not indicated - Nutrition -regular diet Disposition -I would anticipate discharge home with hospice after the hospital stay Primary care physician -Dr Tayla Carnes M.D.
[2020-03-17] MEDS: Ibuprofen 600 MG Tab PO PRN (13:18)
[2020-03-17] MEDS: Levofloxacin/Dextrose 5%-Water 750 MG in Premix Bag 1 BAG IV SCH (19:45)
[2020-03-18] MEDS: Ibuprofen 600 MG Tab PO PRN ×3 (03:21→23:39)
[2020-03-18] MEDS: Benzonatate 100 MG Cap PO PRN ×2 (03:31→23:39)
[2020-03-18] MEDS: Codeine/guaiFENesin 100mg-10 MG/5 ML Syrup 10 ML Cup PO PRN ×3 (03:31→23:39)
[2020-03-18] MEDS: Cefepime 1 GM in Sodium Chloride 0.9% 50 ML IV SCH ×3 (05:51→21:44)
[2020-03-18] MEDS: Levothyroxine 50 MCG Tab PO SCH (07:11)
[2020-03-18] MEDS: Albuterol/Ipratropium 3.0-0.5 MG/3 ML Neb Soln NEB SCH ×4 (07:18→20:15)
[2020-03-18] MEDS: Lactobacillus Rhamnosus GG (Probiotic) Cap PO SCH ×2 (08:16→20:09)
[2020-03-18] MEDS: Potassium Chloride 20 MEQ Tab.ER PO SCH ×2 (08:16→20:08)
[2020-03-18] MEDS: Enoxaparin 40 MG/0.4 ML Syringe SUBCUT SCH (08:17)
--- NOTE | 2020-03-18 10:41 | PCM.PN ---
- General Info Date of Service: 03/18/20 Subjective Update: No acute events overnight. Still having episodes of coughing and is occasionally short of breath but close to how she has been feeling for the past couple of weeks. She was able to walk in the hallway yesterday but fatigues very quickly. No significant chest pain and this has been well controlled. No abdominal pain or nausea. She did have a fever again yesterday afternoon but has been afebrile since then. She feels like she is ready to had for home to [place] and is still interested in hospice care at the time of hospital discharge. Her daughter is here visiting today. Functional Status: Reports: Pain Controlled, Tolerating Diet - Review of Systems General: Reports: Fever Pulmonary: Reports: Shortness of Breath, Cough - Patient Data Vitals - Most Recent: Last Vital Signs Temp 36.7 C 03/18/20 10:26 Pulse 102 H 03/18/20 10:26 Resp 18 03/18/20 10:26 BP 107/59 L 03/18/20 10:26 Pulse Ox 99 03/18/20 10:26 Weight - Most Recent: 82.917 kg I&O - Last 24 Hours: Intake & Output 03/17/20 03/18/20 03/18/20 22:59 06:59 14:59 Intake Total 360 240 Output Total 750 1200 Balance -390 -1200 240 [place] Results Last 24 Hours: Microbiology 03/13/20 16:08 Aerobic Blood Culture - Preliminary Blood - Venous NO GROWTH AFTER 4 DAYS Anaerobic Blood Culture - Preliminary NO GROWTH AFTER 4 DAYS 03/13/20 16:18 Aerobic Blood Culture - Preliminary Blood - Venous - Lab Draw NO GROWTH AFTER 4 DAYS Anaerobic Blood Culture - Preliminary NO GROWTH AFTER 4 DAYS Med Orders - Current: Current Medications Albuterol (Proventil Neb Soln) 2.5 mg NEB Q4H PRN PRN Reason: Wheezing Albuterol/Ipratropium (Duoneb 3.0-0.5 Mg/3 Ml) 3 ml NEB QIDRT [facility] Last Admin: 03/18/20 07:18 Dose: 3 ml Documented by: Benzonatate (Tessalon Perles) 100 mg PO TID PRN PRN Reason: Cough Last Admin: 03/18/20 03:31 Dose: 100 mg Documented by: Enoxaparin Sodium (Lovenox) 40 mg SUBCUT DAILY [facility] Last Admin: 03/18/20 08:17 Dose: 40 mg Documented by: Guaifenesin/Codeine Phosphate (Robitussin Ac) 10 ml PO Q4H PRN PRN Reason: Cough Last Admin: 03/18/20 10:08 Dose: 10 ml Documented by: Heparin Sodium (Porcine) (Heparin Lock Flush 100 Units/Ml) 500 units FLUSH ASDI RECTED PRN PRN Reason: IV Use Last Admin: 03/18/20 06:31 Dose: 500 units Documented by: Levofloxacin/Dextrose 750 mg/ (Premix) 150 mls @ 100 mls/hr IV Q24H [facility] Last Admin: 03/17/20 19:45 Dose: 100 mls/hr Documented by: Cefepime HCl 1 gm/ Sodium (Chloride) 50 mls @ 100 mls/hr IV Q8H [facility] Last Admin: 03/18/20 05:51 Dose: 100 mls/hr Documented by: Ibuprofen (Motrin) 600 mg PO Q6H PRN PRN Reason: Pain/Fever Last Admin: 03/18/20 03:21 Dose: 600 mg Documented by: Lactobacillus Rhamnosus (Culturelle) 1 cap PO BID [facility] Last Admin: 03/18/20 08:16 Dose: 1 cap Documented by: Levothyroxine Sodium (Synthroid) 50 mcg PO ACBREAKFAST [facility] Last Admin: 03/18/20 07:11 Dose: 50 mcg Documented by: Lorazepam (Ativan) 0.5 mg IVPUSH Q4H PRN PRN Reason: Nausea/Vomiting Magnesium Hydroxide (Milk Of Magnesia) 30 ml PO Q12H PRN PRN Reason: Constipation Melatonin (Melatonin) 9 mg PO BEDTIME PRN PRN Reason: Sleep Morphine Sulfate (Morphine) 2 mg IVPUSH Q2H PRN PRN Reason: Pain (severe 7-10) Ondansetron HCl (Zofran) 4 mg IV Q6H PRN PRN Reason: Nausea/Vomiting Ondansetron HCl (Zofran Odt) 4 mg PO Q6H PRN PRN Reason: Nausea able to take PO Oxycodone HCl (Oxycodone) 5 - 10 mg PO Q4H PRN PRN Reason: Pain Last Admin: 03/17/20 21:35 Dose: 10 mg Documented by: Potassium Chloride (Klor-Con M20) 40 meq PO BID [facility] Last Admin: 03/18/20 08:16 Dose: 40 meq Documented by: Senna/Docusate Sodium (Senna Plus) 1 tab PO BID PRN PRN Reason: Constipation Discontinued Medications Sodium Chloride (Normal Saline) 90 mls @ 4 mls/sec IV ASDIRECTED [facility] Last Admin: 03/13/20 13:50 Dose: 4 mls/sec Documented by: Sodium Chloride (Normal Saline) 1,000 mls @ 500 mls/hr IV .BOLUS ONE Stop: 03/13/20 18:06 Last Admin: 03/13/20 16:30 Dose: 500 mls/hr Documented by: Ceftriaxone Sodium 1 gm/ (Sodium Chloride) 50 mls @ 100 mls/hr IV ONETIME ONE Stop: 03/13/20 16:36 Last Admin: 03/13/20 16:30 Dose: 100 mls/hr Documented by: Ceftriaxone Sodium 1 gm/ (Sodium Chloride) 50 mls @ 100 mls/hr IV Q24H [facility] Last Admin: 03/14/20 18:03 Dose: 100 mls/hr Documented by: Sodium Chloride (Normal Saline) 1,000 mls @ 100 mls/hr IV ASDIRECTED [facility] Last Admin: 03/14/20 07:11 Dose: 100 mls/hr Documented by: Magnesium Sulfate 2 gm/ Premix 50 mls @ 25 mls/hr IV Q6H [facility] Stop: 03/14/20 23:59 Last Admin: 03/14/20 22:27 Dose: 25 mls/hr Documented by: Sodium Chloride (Normal Saline) 1,000 mls @ 50 mls/hr IV ASDIRECTED [facility] Last Admin: 03/14/20 22:35 Dose: 50 mls/hr Documented by: Vancomycin HCl 1.25 gm/ Sodium (Chloride) 250 mls @ 165 mls/hr IV Q12H [facility] Last Admin: 03/17/20 01:17 Dose: 165 mls/hr Documented by: Sodium Chloride (Normal Saline) 1,000 mls @ 25 mls/hr IV ASDIRECTED [facility] Last Admin: 03/16/20 07:29 Dose: 25 mls/hr Documented by: Iopamidol (Isovue-370 (76%)) 100 ml IV . DIRECTED ONE Stop: 03/13/20 13:29 Last Admin: 03/13/20 13:51 Dose: 100 ml Documented by: - Exam Quality Assessment: Supplemental Oxygen General: Alert, Oriented, Cooperative, No Acute Distress Lungs: Normal Respiratory Effort GI/Abdominal Exam: Soft, No Distention Extremities: No Pedal Edema Skin: Warm, Dry Psy/Mental Status: Alert, Normal Affect Sepsis Event Note - Evaluation Sepsis Screening Result: No Definite Risk - Focused Exam Vital Signs: Vital Signs Temp Pulse Resp BP Pulse Ox Pulse Ox 03/18/20 10:26 36.7 C 102 H 18 107/59 L 99 03/18/20 07:18 97 97 03/18/20 07:00 35.8 C L 97 18 90/63 93 L 03/18/20 03:00 37.9 C 125 H 16 108/65 94 L - Problem List & Annotations (1) Community acquired pneumonia SNOMED Code(s): 517158015 Code(s): J18.9 - PNEUMONIA, UNSPECIFIED ORGANISM Status: Acute Current Visit: Yes Qualifiers: Laterality: unspecified laterality Qualified Code(s): J18.9 - Pneumonia, unspecified organism (2) Hypokalemia SNOMED Code(s): 29843885 Code(s): E87.6 - HYPOKALEMIA Status: Acute Current Visit: Yes (3) Malignant neoplasm of unspecified part of right bronchus or lung SNOMED Code(s): 741538843, 086928159 Code(s): C34.91 - MALIGNANT NEOPLASM OF UNSP PART OF RIGHT BRONCHUS OR LUNG Status: Chronic Current Visit: No (4) Cirrhosis of liver SNOMED Code(s): 61452716 Code(s): K74.60 - UNSPECIFIED CIRRHOSIS OF LIVER Status: Chronic Current Visit: No (5) Pancytopenia due to chemotherapy SNOMED Code(s): 9463515, 101642821 Code(s): D61.810 - ANTINEOPLASTIC CHEMOTHERAPY INDUCED PANCYTOPENIA Status: Acute Current Visit: Yes - Problem List Review Problem List Initiated/Reviewed/Updated: Yes - My Orders Last 24 Hours: My Active Orders 03/17/20 10:43 Convert IV to Saline Lock [OM.PC] Routine - Plan Plan:: ASSESSMENT AND PLAN - Bilateral pneumonia-stable but still requiring supplemental oxygen. Persistent cough. Fever occurs each afternoon. Cultures negative. -Antibiotic coverage with levofloxacin, cefepime -Supplement oxygen as needed -Follow-up blood cultures Large right lung squamous cell cancer-large cavitary mass which has nearly doubled in size over the past month. Oncology does not feel that they have any additional treatment offer at this point given the rapid progression of her disease. Patient did meet with hospice and is anticipating discharge home with hospice. -Aggressive comfort based management Pancytopenia secondary to chemotherapy-labs are stable. Hypokalemia-improving with replacement. Cirrhosis-chronic, stable. History of hepatic encephalopathy but no evidence at this time. Maintenance issues - - DVT prophylaxis -enoxaparin - GI prophylaxis -not indicated - Nutrition -regular diet Disposition -I would anticipate discharge home with hospice after the hospital stay Primary care physician -Dr Tayla Carnes M.D.
[2020-03-18] MEDS: oxyCODONE 5 MG Tab PO PRN ×3 (12:12→22:22)
--- NOTE | 2020-03-18 14:49 | PCM.DCSUM1 ---
Discharge Summary - Hospital Course Brief History: 60-year-old female with a history of COPD with oxygen dependence, right lung cancer with recent chemotherapy and stable cirrhosis of the liver who presented to the emergency room from the infusion center with increasing cough, shortness of breath and fever. She was admitted for management of a bilateral with right greater than left pneumonia as well as a significant increase in the size of her right lung cancer. Diagnosis: Stroke: No - Discharge Data Discharge Date: 03/18/20 Discharge Disposition: DC/Tfer to Hospice - Home 50 Condition: Stable - Referral to Home Health Primary Care Physician: Horacio Bourne MD - Discharge Diagnosis/Problem(s) (1) Community acquired pneumonia SNOMED Code(s): 477160536 ICD Code: J18.9 - PNEUMONIA, UNSPECIFIED ORGANISM Status: Acute Current Visit: Yes Qualifiers: Laterality: unspecified laterality Qualified Code(s): J18.9 - Pneumonia, unspecified organism (2) Hypokalemia SNOMED Code(s): 28448703 ICD Code: E87.6 - HYPOKALEMIA Status: Acute Current Visit: Yes (3) Malignant neoplasm of unspecified part of right bronchus or lung SNOMED Code(s): 168458423, 406376936 ICD Code: C34.91 - MALIGNANT NEOPLASM OF UNSP PART OF RIGHT BRONCHUS OR LUNG Status: Chronic Current Visit: No (4) Cirrhosis of liver SNOMED Code(s): 04950108 ICD Code: K74.60 - UNSPECIFIED CIRRHOSIS OF LIVER Status: Chronic Current Visit: No (5) Pancytopenia due to chemotherapy SNOMED Code(s): 6153359, 289365236 ICD Code: D61.810 - ANTINEOPLASTIC CHEMOTHERAPY INDUCED PANCYTOPENIA Status: Acute Current Visit: Yes - Patient Summary/Data Hospital Course: Astrid presented initially to the infusion center. There she was noted to have increasing cough and shortness of breath as well as a fever and tachycardia. She was sent to the emergency room for further evaluation. Work-up in the emergency room revealed pancytopenia and she did have chemotherapy the week prior to coming in. A CT scan of the chest was completed looking for pulmonary embolism. There is no evidence for pulmonary embolism but she did have a dramatic increase in the size of the right lung cancer with a very large cavitary mass that communicated with the right mainstem bronchus. At the time of admission the patient wished to remain full code. She was started on broad- spectrum antibiotics after cultures were obtained. Over the next couple of days we did see some slow but steady improvement in her pneumonia. Her hemoglobin did drop after hydration and she required transfusion of 2 units of packed red blood cells. We had several different discussions about the severity of her cancer with the dramatic increase in the size over the past month. Her oncologist was kind enough to come over and chat with her as well. Unfortunately the oncology team felt that any additional chemotherapy would not provide benefit and more likely would increase harm. After several discussions we did elect to transition to more of a comfort based approach. We transition from full code to a DO NOT RESUSCITATE and DO NOT INTUBATE. We did continue treating the pneumonia until her respiratory status had stabilized and her strength was improving. At this point she feels that she is well enough to go home from the hospital. She did meet with the hospice folks and the family has elected to transition to hospice care approach when she gets out of the hospital. The plan is for her to be adm itted to hospice Thursday morning after hospital discharge. She is stable and safe for discharge at this time. Unfortunately I think that her life expectancy is quite short given her cancer has nearly doubled in size over the past month and is now invading the right mainstem bronchus. I think her life expectancy is probably limited to a small number of weeks. So far she seems to be coping well and has excellent family support. - Patient Instructions Diet: Regular Diet as Tolerated Activity: As Tolerated Showering/Bathing: May Shower Notify Provider of: Fever, Increased Pain - Discharge Plan *PRESCRIPTION DRUG MONITORING PROGRAM REVIEWED*: Not Applicable *COPY OF PRESCRIPTION DRUG MONITORING REPORT IN PATIENT HUSAM: Not Applicable Prescriptions/Med Rec: Levofloxacin 750 mg PO BEDTIME #3 tablet Codeine/guaiFENesin [Robitussin AC] 10 ml PO Q4H PRN #480 liquid PRN Reason: Cough Home Medications: Home Meds Multivitamin with Minerals [Antioxidant Vitamin] 1 each PO DAILY 09/12/13 [History] Vitamin B Complex [B Complex] 1 tab PO DAILY 09/12/13 [History] Levothyroxine 50 mcg PO DAILY 08/31/15 [History] Albuterol [Proventil Neb Soln] 2.5 mg NEB Q4H PRN #60 neb 10/14/19 [Rx] Albuterol/Ipratropium [DuoNeb 3.0-0.5 MG/3 ML] 3 ml NEB Q6H PRN #60 neb 10/14/19 [Rx] Codeine/guaiFENesin [Robitussin AC] 10 ml PO Q4H PRN #236 liquid 10/26/19 [Rx] Nicotine Polacrilex [Nicorelief] 2 mg CHEW Q1H PRN #60 gum 10/26/19 [Rx] Lactulose [Generlac] 15 ml PO DAILY 12/08/19 [History] Potassium Chloride 40 meq PO BID 12/08/19 [History] Prochlorperazine Maleate [Compazine] 10 mg PO Q6H PRN 12/08/19 [History] Ibuprofen 400 mg PO Q6HR PRN 01/31/20 [History] Codeine/guaiFENesin [Robitussin AC] 10 ml PO Q4H PRN #480 liquid 03/18/20 [Rx] Levofloxacin 750 mg PO BEDTIME #3 tablet 03/18/20 [Rx] Oxygen Therapy Mode: Nasal Cannula Oxygen Flow Rate (L/min): 2 Patient Handouts: Levofloxacin tablets, Community-Acquired Pneumonia, Adult Referrals: Horacio Bourne MD [Primary Care Provider] - - Discharge Summary/Plan Comment DC Time >30 min.: Yes (50-hospice ) - Patient Data Vitals - Most Recent: Last Vital Signs Temp 36.8 C 03/18/20 14:11 Pulse 112 H 03/18/20 14:46 Resp 16 03/18/20 14:11 BP 92/58 L 03/18/20 14:11 Pulse Ox 96 03/18/20 14:46 Weight - Most Recent: 82.917 kg I&O - Last 24 hours: Intake & Output 03/17/20 03/18/20 03/18/20 22:59 06:59 14:59 Intake Total 360 650 Output Total 750 1200 250 Balance -390 -1200 400 ELLI Results - Last 24 hrs: Microbiology 03/13/20 16:08 Aerobic Blood Culture - Preliminary Blood - Venous NO GROWTH AFTER 4 DAYS Anaerobic Blood Culture - Preliminary NO GROWTH AFTER 4 DAYS 03/13/20 16:18 Aerobic Blood Culture - Preliminary Blood - Venous - Lab Draw NO GROWTH AFTER 4 DAYS Anaerobic Blood Culture - Preliminary NO GROWTH AFTER 4 DAYS Med Orders - Current: Current Medications Albuterol (Proventil Neb Soln) 2.5 mg NEB Q4H PRN PRN Reason: Wheezing Albuterol/Ipratropium (Duoneb 3.0-0.5 Mg/3 Ml) 3 ml NEB QIDRT [facility] Last Admin: 03/18/20 14:46 Dose: 3 ml Documented by: Benzonatate (Tessalon Perles) 100 mg PO TID PRN PRN Reason: Cough Last Admin: 03/18/20 03:31 Dose: 100 mg Documented by: Enoxaparin Sodium (Lovenox) 40 mg SUBCUT DAILY [facility] Last Admin: 03/18/20 08:17 Dose: 40 mg Documented by: Guaifenesin/Codeine Phosphate (Robitussin Ac) 10 ml PO Q4H PRN PRN Reason: Cough Last Admin: 03/18/20 10:08 Dose: 10 ml Documented by: Heparin Sodium (Porcine) (Heparin Lock Flush 100 Units/Ml) 500 units FLUSH ASDIRECTED PRN PRN Reason: IV Use Last Admin: 03/18/20 14:00 Dose: 500 units Documented by: Levofloxacin/Dextrose 750 mg/ (Premix) 150 mls @ 100 mls/hr IV Q24H [facility] Last Admin: 03/17/20 19:45 Dose: 100 mls/hr Documented by: Cefepime HCl 1 gm/ Sodium (Chloride) 50 mls @ 100 mls/hr IV Q8H [facility] Last Admin: 03/18/20 13:22 Dose: 100 mls/hr Documented by: Ibuprofen (Motrin) 600 mg PO Q6H PRN PRN Reason: Pain/Fever Last Admin: 03/18/20 11:24 Dose: 600 mg Documented by: Lactobacillus Rhamnosus (Culturelle) 1 cap PO BID [facility] Last Admin: 03/18/20 08:16 Dose: 1 cap Documented by: Levothyroxine Sodium (Synthroid) 50 mcg PO ACBREAKFAST [facility] Last Admin: 03/18/20 07:11 Dose: 50 mcg Documented by: Lorazepam (Ativan) 0.5 mg IVPUSH Q4H PRN PRN Reason: Nausea/Vomiting Magnesium Hydroxide (Milk Of Magnesia) 30 ml PO Q12H PRN PRN Reason: Constipation Melatonin (Melatonin) 9 mg PO BEDTIME PRN PRN Reason: Sleep Morphine Sulfate (Morphine) 2 mg IVPUSH Q2H PRN PRN Reason: Pain (severe 7-10) Ondansetron HCl (Zofran) 4 mg IV Q6H PRN PRN Reason: Nausea/Vomiting Ondansetron HCl (Zofran Odt) 4 mg PO Q6H PRN PRN Reason: Nausea able to take PO Oxycodone HCl (Oxycodone) 5 - 10 mg PO Q4H PRN PRN Reason: Pain Last Admin: 03/18/20 12:12 Dose: 10 mg Documented by: Potassium Chloride (Klor-Con M20) 40 meq PO BID [facility] Last Admin: 03/18/20 08:16 Dose: 40 meq Documented by: Senna/Docusate Sodium (Senna Plus) 1 tab PO BID PRN PRN Reason: Constipation Discontinued Medications Sodium Chloride (Normal Saline) 90 mls @ 4 mls/sec IV ASDIRECTED [facility] Last Admin: 03/13/20 13:50 Dose: 4 mls/sec Documented by: Sodium Chloride (Normal Saline) 1,000 mls @ 500 mls/hr IV .BOLUS ONE Stop: 03/13/20 18:06 Last Admin: 03/13/20 16:30 Dose: 500 mls/hr Documented by: Ceftriaxone Sodium 1 gm/ (Sodium Chloride) 50 mls @ 100 mls/hr IV ONETIME ONE Stop: 03/13/20 16:36 Last Admin: 03/13/20 16:30 Dose: 100 mls/hr Documented by: Ceftriaxone Sodium 1 gm/ (Sodium Chloride) 50 mls @ 100 mls/hr IV Q24H [facility] Last Admin: 03/14/20 18:03 Dose: 100 mls/hr Documented by: Sodium Chloride (Normal Saline) 1,000 mls @ 100 mls/hr IV ASDIRECTED [facility] Last Admin: 03/14/20 07:11 Dose: 100 mls/hr Documented by: Magnesium Sulfate 2 gm/ Premix 50 mls @ 25 mls/hr IV Q6H [facility] Stop: 03/14/20 23:59 Last Admin: 03/14/20 22:27 Dose: 25 mls/hr Documented by: Sodium Chloride (Normal Saline) 1,000 mls @ 50 mls/hr IV ASDIRECTED [facility] Last Admin: 03/14/20 22:35 Dose: 50 mls/hr Documented by: Vancomycin HCl 1.25 gm/ Sodium (Chloride) 250 mls @ 165 mls/hr IV Q12H [facility] Last Admin: 03/17/20 01:17 Dose: 165 mls/hr Documented by: Sodium Chloride (Normal Saline) 1,000 mls @ 25 mls/hr IV ASDIRECTED [facility] Last Admin: 03/16/20 07:29 Dose: 25 mls/hr Documented by: Iopamidol (Isovue-370 (76%)) 100 ml IV . DIRECTED ONE Stop: 03/13/20 13:29 Last Admin: 03/13/20 13:51 Dose: 100 ml Documented by:
[2020-03-18] MEDS: Levofloxacin/Dextrose 5%-Water 750 MG in Premix Bag 1 BAG IV SCH (20:06)
[2020-03-19] MEDS: Cefepime 1 GM in Sodium Chloride 0.9% 50 ML IV SCH (05:32)
[2020-03-19] MEDS: Albuterol/Ipratropium 3.0-0.5 MG/3 ML Neb Soln NEB SCH ×2 (07:10→11:08)
[2020-03-19] MEDS: Levothyroxine 50 MCG Tab PO SCH (07:24)
[2020-03-19] MEDS: Benzonatate 100 MG Cap PO PRN (07:26)
[2020-03-19 07:29] VITALS: BP 106/64; PULSE 120
[2020-03-19] MEDS: oxyCODONE 5 MG Tab PO PRN (07:37)
[2020-03-19] MEDS: Potassium Chloride 20 MEQ Tab.ER PO SCH (08:50)
[2020-03-19] MEDS: Lactobacillus Rhamnosus GG (Probiotic) Cap PO SCH (08:50)
[2020-03-19] MEDS: Enoxaparin 40 MG/0.4 ML Syringe SUBCUT SCH (08:51)
== END 2020-03-19 12:19 | disposition hospice, home (50) | DRG 871 ==
LOC: JP.ED 12:41 → JP.MS 17:19
PROVIDERS: ADMIT Internal Medicine; ATTEND Internal Medicine
PROC: 30233N1 Transfusion of Nonautologous Red Blood Cells into Peripheral Vein, Percutaneous Approach (ICD-10-PCS; principal; 2020-03-15)
DX: J15.9 Unspecified bacterial pneumonia (principal); A41.9 Sepsis, unspecified organism; J18.9 Pneumonia, unspecified organism; D61.810 Antineoplastic chemotherapy induced pancytopenia; C34.90 Malignant neoplasm of unspecified part of unspecified bronchus or lung; J96.91 Respiratory failure, unspecified with hypoxia; D84.9 Immunodeficiency, unspecified; C34.91 Malignant neoplasm of unspecified part of right bronchus or lung; J44.9 Chronic obstructive pulmonary disease, unspecified; Z66 Do not resuscitate; K74.60 Unspecified cirrhosis of liver; E87.6 Hypokalemia; Z20.828 Contact with and (suspected) exposure to other viral communicable diseases; H54.7 Unspecified visual loss; I10 Essential (primary) hypertension; E03.9 Hypothyroidism, unspecified; D89.9 Disorder involving the immune mechanism, unspecified; Z98.49 Cataract extraction status, unspecified eye; Z98.890 Other specified postprocedural states; Z99.81 Dependence on supplemental oxygen; Z79.890 Hormone replacement therapy; Z79.899 Other long term (current) drug therapy; Z88.6 Allergy status to analgesic agent; Z92.21 Personal history of antineoplastic chemotherapy; Z87.891 Personal history of nicotine dependence
CPT/HCPCS: 36415; 36430; 71275; 74177; 80048; 80053; 81001; 83605; 83735; 84484; 85025; 85027; 85379; 85610; 86850; 86870; 86900; 86901; 86902; 86920; 86922; 86970; 87040; 94640; 96365; 99285-25; A9270-GY; J0692; J0696; J1642; J1650; J1956; J3370; J3475; J7030; J7050; J7620-GY; P9016; Q9967; U0002